=== PATIENT | female | born 1935 | race Caucasian/White ===

== ENCOUNTER 2017-02-14 11:23 | Inpatient (IN) | payer MEDICARE, MEDICAID ==
[2017-02-14] MEDS ORDERED: NORMAL SALINE 1000 ML 1,000 ML IV ONE ×3 (11:33→14:55)
--- NOTE | 2017-02-14 11:49 | ER Document Report ---
ED General - General Stated Complaint: WEAKNESS Time Seen by Provider: 02/14/17 11:28 Mode of Arrival: Medic Information source: Patient Notes: 81-year-old female found by a neighbor on the floor today when she checked on her. The last time the patient was seen was when she drove herself to the [facility] on Tuesday afternoon. Patient has no recollection of what happened to her. She was disoriented to EMS, dehydrated, diaper full of feces and urine. Patient has history of frequent falls and it appeared that she tried to brace herself because things came down around her in the living room. PCP: Dinora Flores, hypothyroid, GERD, DM2, gout, depression, frequent falls, compensated CHF. TRAVEL OUTSIDE OF THE [place] IN LAST 30 DAYS: No - Related Data Allergies/Adverse Reactions: adhesive tape [Adhesive Tape] Allergy (Intermediate, Verified 03/13/15 17:35) SILVA SKIN meperidine HCl [From Demerol] Adverse Reaction (Intermediate, Verified 03/13/15 17:35) VOMITING Home Medications: Current Home Medications Fluoxetine HCl 20 mg PO DAILY 02/14/17 [History] Metoprolol Tartrate 25 mg PO BID 02/14/17 [History] Nitroglycerin [Nitrolingual] 400 mcg PO ASDIR PRN 02/14/17 [History] Vit D3/Folic Acid/B2/B6/B12 [Folgard Tablet] 1,000 units PO DAILY 02/14/17 [ History] Vit D3/Folic Acid/B2/B6/B12 [Folgard Tablet] 2,000 unit PO DAILY 02/14/17 [ History] Past Medical History - General Information source: Patient, Relative - Grand nephew Cannot obtain history due to: Altered mental status - talking in whispers, difficult to understand her, she does not remember what happened - Social History Smoking Status: Smoker,Current Status Unk Frequency of alcohol use: None Drug Abuse: None Lives with: Alone Family History: Reviewed & Not Pertinent - Past Medical History Cardiac Medical History: Reports: Hx Hypercholesterolemia, Hx Hypertension Pulmonary Medical History: Reports: Other - Compensated CHF found on old records Endocrine Medical History: Reports: Hx Diabetes Mellitus Type 2 - diet controlled GI Medical History: Reports: Hx Gastroesophageal Reflux Disease Musculoskeltal Medical History: Reports Hx Arthritis Psychiatric Medical History: Reports: Hx Depression Past Surgical History: Reports: Hx Abdominal Surgery - SAHIL fundoplication, Hx Appendectomy, Hx Cholecystectomy, Hx Tonsillectomy - Immunizations Hx Diphtheria, Pertussis, Tetanus Vaccination: Yes Hx Pneumococcal Vaccination: 04/11/11 Review of Systems - Review of Systems -: Yes ROS unobtainable due to patient's medical condition Physical Exam - Vital signs Vitals: Resp 17 02/14/17 11:35 Interpretation: Normal - General General appearance: Appears well, Alert - HEENT Head: Normocephalic, Atraumatic Eyes: Normal Conjunctiva: Normal Cornea: Other Pupils: PERRL Tympanic membrane: Normal Mouth/Lips: Other - extremely dry Mucous membranes: Dry Pharynx: Erythema - minimal Neck: Normal, Supple - non tender c spine - Respiratory Respiratory status: No respiratory distress Chest status: Nontender Breath sounds: Normal Chest palpation: Normal - Cardiovascular Rhythm: Regular Heart sounds: Normal auscultation Murmur: No - Abdominal Inspection: Normal Distension: Tympanitic Bowel sounds: Normal Tenderness: No: Tender Organomegaly: No organomegaly - Rectal Stool: Heme negative Notes: diaper full of stool and urine - Back Back: Normal, Tender - mild t and l mid spine, Wounds - buttocks erythematous and area of excoriation left buttocks - Extremities General upper extremity: Normal inspection, Nontender, Tender - see below, Normal color, Normal ROM, Normal temperature General lower extremity: Normal inspection, Nontender, Normal color, Normal ROM , Normal temperature, Normal weight bearing. No: Tender, Edema, Brandt's sign Wrist: Tender, Ecchymosis, Limited ROM, Other - swelling, 2+ radial pulse - Neurological Neuro grossly intact: Yes Orientation: Disoriented to time, Disoriented to events Magal[place] Coma Scale Eye Opening: Spontaneous [place] Coma Scale Verbal: Incomprehensible - at first, then speaking louder and not totally coherent [place] Coma Scale Motor: Obeys Commands [place] Coma Scale Total: 12 Speech: Other - whispering Cranial nerves: No: Facial palsy, Sensory deficit, Tongue deviation Motor strength normal: LUE - able to follow commands, use both arms and legs, RUE, LLE, RLE Sensory: Normal - Psychological Associated symptoms: Flat affect, Other - sleepy - Skin Skin Temperature: Warm Skin Moisture: Dry Skin Color: Normal, Ecchymosis - left wrist Skin irregularity: Rash - buttocks with excoriation to left buttocks Course - Re-evaluation Re-evalutation: 02/14/17 14:[address] 130's at 1436, had dr swanson go into the room, grand nephew in room said the pt had been asleep, not as coherent as she was an hour ago. He rec metoprolol 5mg IV, ge ct head, t and l spine since some tenderness at this time. Colles fx, hip negative, CT chronic changes, calcium elevated, AAS negative, EKG ST, UA cath negative for infection. 02/14/17 15:35 dr hahn called back, he will reduce fx for the pt. but wants it splinted at this time. He knows the pt is going to be admitted. In CT at this time. 02/14/17 16:20 Dr. Massey will admit the patient to telemetry. 02/14/17 18:29 Patient is still in room 11 there are no telemetry beds at this time. Orders have been put in for her admission by Dr. Massey. 02/14/17 18:35 - Vital Signs Vital signs: Temp Pulse Resp BP Pulse Ox 98.8 F 23 H 141/67 H 100 02/14/17 17:01 02/14/17 17:01 02/14/17 17:01 02/14/17 17:01 - Laboratory Result Diagrams: 02/14/17 11:50 02/14/17 11:50 Laboratory results interpreted by me: 02/14/17 02/14/17 02/14/17 11:50 11:50 11:50 WBC 14.3 H RDW 15.0 H Seg Neutrophils % 86.4 H Lymphocytes % 7.4 L Absolute Neutrophils 12.4 H BUN 37 H Est GFR ( Amer) 55 L Est GFR (Non-Af Amer) 46 L Glucose 172 H Calcium 11.0 H Total Bilirubin 2.0 H Direct Bilirubin 0.9 H AST 59 H Creatine Kinase 335 H CK-MB (CK-2) 7.77 H Urine Protein Urine Ketones 02/14/17 12:10 WBC RDW Seg Neutrophils % Lymphocytes % Absolute Neutrophils BUN Est GFR ( Amer) Est GFR (Non-Af Amer) Glucose Calcium Total Bilirubin Direct Bilirubin AST Creatine Kinase CK-MB (CK-2) Urine Protein 100 H Urine Ketones 20 H Discharge - Discharge Clinical Impression: Hypercalcemia, Dehydration, colles fracture left wrist, compensated CHF hx, hx frequent falls, buttocks rash and excoriation skin, amnesia to weekend events Syncope Qualifiers: Syncope type: unspecified Qualified Code(s): R55 - Syncope and collapse Condition: Stable Disposition: ADMITTED INPATIENT Admitting Provider: Hospitalist Unit Admitted: Telemetry
[2017-02-14] MEDS ORDERED: NORMAL SALINE 1000 ML 500 ML IV ONE ×2 (11:53→14:07)
[2017-02-14 12:09] LABS: ABSOLUTE BASOPHILS # (AUTO) 0.1 10^3/uL (0.0-0.2); ABSOLUTE LYMPHOCYTES (AUTO) 1.1 10^3/uL (0.5-4.7); ABSOLUTE MONOCYTES (AUTO) 0.8 10^3/uL (0.1-1.4); ABSOLUTE NEUT (AUTO) 12.4 10^3/uL (1.7-8.2); BASOPHILS % (AUTO) 0.4 % (0-2); HEMATOCRIT 44.3 % (36.0-47.0); HEMOGLOBIN 14.8 g/dL (12.0-15.5); HGB HCT DIFFERENCE 0.1; LYMPHOCYTES % (AUTO) 7.4 % (13-45); MEAN CORPUSCULAR HEMOGLOBIN 32.1 pg (27.0-33.4); MEAN CORPUSCULAR HGB CONC 33.4 g/dL (32.0-36.0); MEAN CORPUSCULAR VOLUME 96 fl (80-97); MONOCYTES % (AUTO) 5.8 % (3-13); RED BLOOD COUNT 4.61 10^6/uL (3.72-5.28); SEGMENTED NEUTROPHILS % (AUTO) 86.4 % (42-78); VENOUS BLOOD BASE EXCESS 2.6 mmol/L; VENOUS BLOOD HCO3 28.7 mmol/L (20-32); VENOUS BLOOD PCO2 49.6 mmHg (35-63); VENOUS BLOOD PH 7.38 (7.30-7.42); WHITE BLOOD COUNT 14.3 10^3/uL (4.0-10.5)
[2017-02-14 12:31] LABS: ALANINE AMINOTRANSFERASE 52 U/L (9-52); ALBUMIN 3.9 g/dL (3.5-5.0); ALKALINE PHOSPHATASE 101 U/L (38-126); ANION GAP 14 (5-19); ASPARTATE AMINO TRANSFERASE 59 U/L (14-36); BILIRUBIN,DIRECT 0.9 mg/dL (0.0-0.4); BLOOD UREA NITROGEN 37 mg/dL (7-20); CARBON DIOXIDE 28 mmol/L (22-30); CHLORIDE 101 mmol/L (98-107); CREATINE KINASE 335 U/L (30-135); CREATININE RESULT 1.14 mg/dL (0.52-1.25); GLUCOSE 172 mg/dL (75-110); MAGNESIUM 1.7 mg/dL (1.6-2.3); POTASSIUM 4.3 mmol/L (3.6-5.0); SODIUM 142.9 mmol/L (137-145)
[2017-02-14 12:34] LABS: APPEARANCE,URINE CLEAR; BILIRUBIN,URINE NEGATIVE (NEGATIVE); GLUCOSE, URINE NEGATIVE (NEGATIVE); KETONES,URINE 20 mg/dL (NEGATIVE); LEUKOCYTE ESTERASE,URINE NEGATIVE (NEGATIVE); NITRITE,URINE NEGATIVE (NEGATIVE); PROTEIN,URINE 100 mg/dL (NEGATIVE); URINE SPECIFIC GRAVITY 1.024; UROBILINOGEN,URINE NEGATIVE mg/dL (<2.0)
[2017-02-14 12:43] LABS: CREATINE KINASE MB 7.77 ng/mL (<4.55); TROPONIN I 0.018 ng/mL
--- NOTE | 2017-02-14 13:21 | RADIOLOGY REPORT (SQ) ---
EXAM DESCRIPTION: CT HEAD WITHOUT COMPLETED DATE/TIME: 02/14/2017 12:57 pm REASON FOR STUDY: found on fall altered mental status COMPARISON: 04/23/2015 TECHNIQUE: Axial images acquired through the brain without intravenous contrast. Images reviewed wi th bone, brain and subdural windows. Images stored on PACS. All CT scanners at this facility use dose modulation, iterative reconstruction, and/or weight based d osing when appropriate to reduce radiation dose to as low as reasonably achievable (ALARA). [facility]: Dose Right [facility]: CareDose [facility]: Dose Right [facility]: Teradose 4D [facility]: [employer] RADIATION DOSE: Up-to-date CT equipment and radiation dose reduction techniques were employed. CTDIv ol: 64.6 mGy. DLP: 1163 mGy-cm.mGy. LIMITATIONS: None. FINDINGS: VENTRICLES: Prominent. CEREBRUM: No masses. No hemorrhage. No midline shift. Areas of low density in the white matter mos t likely due to chronic micro-vascular ischemic change. No evidence for acute infarction. CEREBELLUM: No masses. No hemorrhage. No alteration of density. No evidence for acute infarction. EXTRAAXIAL SPACES: Age-related involutional change. No fluid collections. No masses. ORBITS AND GLOBE: No intra- or extraconal masses. Normal contour of globe without masses. CALVARIUM: No fracture. PARANASAL SINUSES: No fluid or mucosal thickening. SOFT TISSUES: No mass or hematoma. OTHER: No other significant finding. IMPRESSION: CHRONIC CHANGES OF ATROPHY AND MICROVASCULAR ISCHEMIA. NO ACUTE PROCESS. EVIDENCE OF ACUTE STROKE: NO. TECHNICAL DOCUMENTATION: JOB ID: [id number] Quality ID # [id number]: Final reports with documentation of one or more dose reduction techniques (e.g., Au tomated exposure control, adjustment of the mA and/or kV according to patient size, use of iterative reconstruction technique) 2010 [employer]- All Rights Reserved
--- NOTE | 2017-02-14 13:59 | RADIOLOGY REPORT (SQ) ---
EXAM DESCRIPTION: HIP RIGHT AP/LATERAL COMPLETED DATE/TIME: 02/14/2017 1:47 pm REASON FOR STUDY: bruising found on floor COMPARISON: 04/14/2015 NUMBER OF VIEWS: Two views. TECHNIQUE: AP pelvis and additional frog-leg view of the right hip. LIMITATIONS: Overlying bowel gas. FINDINGS: MINERALIZATION: Osteopenia. RIGHT HIP: No fracture or dislocation. No worrisome bone lesions. LEFT HIP: No fracture or dislocation. No worrisome bone lesions. PUBIS AND ISCHIUM: No fracture. PELVIS: No fracture. SACRUM: Evaluation limited. LOWER LUMBAR SPINE: No fracture or dislocation. No worrisome bone lesions. No significant disc disea se. SOFT TISSUES: Cho catheter in urinary bladder. OTHER: No other significant finding. IMPRESSION: NO RADIOGRAPHIC EVIDENCE OF ACUTE INJURY. TECHNICAL DOCUMENTATION: JOB ID: [id number] [employer]- All Rights Reserved
--- NOTE | 2017-02-14 14:01 | RADIOLOGY REPORT (SQ) ---
EXAM DESCRIPTION: WRIST LEFT 3 VIEWS COMPLETED DATE/TIME: 02/14/2017 1:47 pm REASON FOR STUDY: swollen and bruised COMPARISON: None. NUMBER OF VIEWS: Three views. TECHNIQUE: AP, lateral, and oblique radiographic images acquired of the left wrist. LIMITATIONS: None. FINDINGS: MINERALIZATION: Osteopenia. BONES: Comminuted fracture of the distal radius extends into the radiocarpal joint. Mild dorsal angu lation. SOFT TISSUES: No foreign body. OTHER: No other significant finding. IMPRESSION: Fracture of the distal radius. TECHNICAL DOCUMENTATION: JOB ID: [id number] [employer]- All Rights Reserved
--- NOTE | 2017-02-14 14:04 | RADIOLOGY REPORT (SQ) ---
EXAM DESCRIPTION: ACUTE ABDOMEN SERIES COMPLETED DATE/TIME: 02/14/2017 1:48 pm REASON FOR STUDY: found on fall altered mental status COMPARISON: None. NUMBER OF VIEWS: Three views. TECHNIQUE: Frontal chest, supine abdomen and upright/decubitus abdomen radiographic images acquired. LIMITATIONS: None. FINDINGS: CHEST: Lungs clear of infiltrates. FREE AIR: None. No abnormal gas collections. BOWEL GAS PATTERN: Nonobstructive pattern. No dilated loops or air fluid levels. CALCIFICATIONS: No suspicious calcifications. HARDWARE: Hernia mesh right upper quadrant. SOFT TISSUES: Cho catheter in urinary bladder. BONES: No acute fracture. No worrisome bone lesions. OTHER: No other significant finding. IMPRESSION: NO RADIOGRAPHIC EVIDENCE FOR ACUTE ABDOMINAL DISEASE. TECHNICAL DOCUMENTATION: JOB ID: [id number] [employer]- All Rights Reserved
--- NOTE | 2017-02-14 14:08 | EKG REPORT ---
SEVERITY:- ABNORMAL ECG - SINUS RHYTHM VENTRICULAR PREMATURE COMPLEX RIGHT BUNDLE BRANCH BLOCK NONSPECIFIC ST-T CHANGES- INFERIOR LEADS : Confirmed by: Cleveland Gill MD 14-Feb-2017 14:07:42
[2017-02-14] MEDS ORDERED: METOPROLOL TARTRATE PF/INJ 5 MG/5 ML SDV IV ONE (14:53)
--- NOTE | 2017-02-14 16:02 | RADIOLOGY REPORT (SQ) ---
EXAM DESCRIPTION: CT CERVICAL SPINE WITHOUT COMPLETED DATE/TIME: 02/14/2017 3:38 pm REASON FOR STUDY: fall COMPARISON: 03/13/2015 TECHNIQUE: Axial images acquired through the cervical spine without intravenous contrast. Images re viewed with lung, soft tissue and bone windows. Reconstructed coronal and sagittal MPR images review ed. Images stored on PACS. All CT scanners at this facility use dose modulation, iterative reconstruction, and/or weight based d osing when appropriate to reduce radiation dose to as low as reasonably achievable (ALARA). [facility]: Dose Right [facility]: CareDose [facility]: Dose Right [facility]: Teradose 4D [facility]: Smart [employer] RADIATION DOSE: Up-to-date CT equipment and radiation dose reduction techniques were employed. CTDIv ol: 20.7 mGy. DLP: 420 mGy-cm. mGy. LIMITATIONS: None. FINDINGS: ALIGNMENT: Grade 1 anterolisthesis of C3 relative to C4. MINERALIZATION: Normal. VERTEBRAL BODIES: No fractures or dislocation. DISCS: Multilevel disc space narrowing with osteophytes. FACETS, LATERAL MASSES, POSTERIOR ELEMENTS: Facet arthropathy. No fractures. No dislocation. No ac [place] findings. HARDWARE: None in the spine. VISUALIZED RIBS: No fractures. LUNG APICES AND SOFT TISSUES: No significant or acute findings. OTHER: No other significant finding. IMPRESSION: CHRONIC DEGENERATIVE CHANGES. NO ACUTE FINDINGS. TECHNICAL DOCUMENTATION: JOB ID: [id number] Quality ID # [id number]: Final reports with documentation of one or more dose reduction techniques (e.g., Au tomated exposure control, adjustment of the mA and/or kV according to patient size, use of iterative reconstruction technique) 2010 [employer]- All Rights Reserved
--- NOTE | 2017-02-14 16:04 | RADIOLOGY REPORT (SQ) ---
EXAM DESCRIPTION: CT THORACIC SPINE WITHOUT COMPLETED DATE/TIME: 02/14/2017 3:40 pm REASON FOR STUDY: fall COMPARISON: None. TECHNIQUE: Axial images acquired through the thoracic spine without intravenous contrast. Images re viewed with lung, soft tissue and bone windows. Reconstructed coronal and sagittal MPR images review ed. Images stored on PACS. All CT scanners at this facility use dose modulation, iterative reconstruction, and/or weight based d osing when appropriate to reduce radiation dose to as low as reasonably achievable (ALARA). [facility]: Dose Right [facility]: CareDose [facility]: Dose Right [facility]: Teradose 4D [facility]: Smart [employer] RADIATION DOSE: Up-to-date CT equipment and radiation dose reduction techniques were employed. CTDIv ol: 117.6 mGy. DLP: 4135 mGy-cm. mGy. LIMITATIONS: None. FINDINGS: Bones are osteopenic. There is an exaggerated kyphosis. No obvious acute compression fra cture. Degenerative changes at multiple levels. No paraspinal hematoma. IMPRESSION: No acute findings. TECHNICAL DOCUMENTATION: JOB ID: [id number] Quality ID # [id number]: Final reports with documentation of one or more dose reduction techniques (e.g., Au tomated exposure control, adjustment of the mA and/or kV according to patient size, use of iterative reconstruction technique) 2010 [employer]- All Rights Reserved
--- NOTE | 2017-02-14 16:07 | RADIOLOGY REPORT (SQ) ---
EXAM DESCRIPTION: CT LUMBAR SPINE WITHOUT COMPLETED DATE/TIME: 02/14/2017 3:44 pm REASON FOR STUDY: fall COMPARISON: None. TECHNIQUE: Axial images acquired through the lumbar spine without intravenous contrast. Images revi ewed with lung, soft tissue and bone windows. Reconstructed coronal and sagittal MPR images reviewed . All images stored on PACS. All CT scanners at this facility use dose modulation, iterative reconstruction, and/or weight based d osing when appropriate to reduce radiation dose to as low as reasonably achievable (ALARA). [facility]: Dose Right [facility]: CareDose [facility]: Dose Right [facility]: Teradose 4D [facility]: [employer] RADIATION DOSE: mGy. LIMITATIONS: None. FINDINGS: Bones are osteopenic. Grade 1 anterolisthesis of L4 relative to L5 and L5 relative to S1. No fracture is identified. Sacral fractures can be occult in osteopenic patients. Moderate spinal stenosis at L1-2 associated with bony spur formation. Facet arthropathy. No paraspinal hematoma. IMPRESSION: No fracture identified. TECHNICAL DOCUMENTATION: JOB ID: [id number] Quality ID # [id number]: Final reports with documentation of one or more dose reduction techniques (e.g., Au tomated exposure control, adjustment of the mA and/or kV according to patient size, use of iterative reconstruction technique) 2010 [employer]- All Rights Reserved
[2017-02-14] MEDS: NORMAL SALINE 1000 ML 1,000 ML IV PRN (17:23)
[2017-02-14 17:41] LABS: URINE BARBITURATES SCREEN NEGATIVE; URINE METHADONE SCREEN NEGATIVE; URINE OPIATES LOW NEGATIVE; URINE PHENCYCLIDINE SCREEN NEGATIVE
--- NOTE | 2017-02-14 18:49 | EKG REPORT ---
SEVERITY:- ABNORMAL ECG - SINUS TACHYCARDIA FIRST DEGREE AV BLOCK RIGHT BUNDLE BRANCH BLOCK : Confirmed by: Cleveland Gill MD 14-Feb-2017 18:48:05
[2017-02-15] MEDS: HYDROCODONE/ACETAMINOPHEN 7.5-325 MG TABLET PO PRN ×2 (01:53→18:48)
[2017-02-15] MEDS: METOPROLOL TARTRATE 25 MG TABLET PO SCH ×3 (01:53→21:51)
[2017-02-15 05:27] LABS: HGB HCT DIFFERENCE -0.2; MEAN CORPUSCULAR HEMOGLOBIN 32.1 pg (27.0-33.4); MEAN CORPUSCULAR HGB CONC 33.3 g/dL (32.0-36.0); MEAN CORPUSCULAR VOLUME 97 fl (80-97); RED BLOOD COUNT 3.94 10^6/uL (3.72-5.28); RED CELL DISTRIBUTION WIDTH 14.6 % (11.5-14.0)
[2017-02-15 05:40] LABS: HEMOGLOBIN 12.6 g/dL (12.0-15.5)
[2017-02-15] MEDS: NORMAL SALINE 1000 ML 1,000 ML IV PRN (05:42)
[2017-02-15] MEDS ORDERED: LANSOPRAZOLE 30 MG TAB.RAP.DR PO SCH (06:00)
[2017-02-15 06:04] LABS: FREE T3 2.16 pg/mL (2.77-5.27)
[2017-02-15 06:18] LABS: THYROID STIMULATING HORMONE 0.52 uIU/mL (0.47-4.68)
--- NOTE | 2017-02-15 06:49 | PDOC CONSULTATION ---
Consultation Consult Date: 02/15/17 Consult reason:: Left wrist fracture History of Present Illness Admission Date/PCP: 02/14/17 16:28 History of Present Illness: PRIYA CANTRELL is a 81 year old female who fell over the weekend and sustained a left wrist fracture. She was brought to the emergency several days status post a fall which she spent on the floor without food or water. X-rays in the emergency room demonstrated comminuted left distal radius fracture which is displaced. The patient was splinted because the emergency room staff felt that she was not stable for conscious sedation at that point to allow reduction of the wrist fracture. Orthopedics is now consulted for management of the fracture. Past Medical History Cardiac Medical History: Reports: Hyperlipidema, Hypertension Pulmonary Medical History: Reports: Other - Compensated CHF found on old records Endocrine Medical History: Reports: Diabetes Mellitus Type 2 - diet controlled GI Medical History: Reports: Gastroesophageal Reflux Disease Musculoskeltal Medical History: Reports: Arthritis Psychiatric Medical History: Reports: Depression Past Surgical History Past Surgical History: Reports: Appendectomy, Cholecystectomy, Tonsillectomy Social History Information Source: Patient, Emergency Med Personnel, [facility] Records Lives with: Alone Smoking Status: Never Smoker Frequency of Alcohol Use: None Hx Recreational Drug Use: No Hx Prescription Drug Abuse: No Family History Family History: Reviewed & Not Pertinent Parental Family History Reviewed: No Children Family History Reviewed: No Sibling(s) Family History Reviewed.: No Medication/Allergy Home Medications: Acetaminophen [Tylenol Extra Strength 500 mg Tablet] 650 mg PO PRN PRN 09/02/11 Allopurinol [Zyloprim 100 mg Tablet] 300 mg PO DAILY 09/02/11 Multivitamin [Multivitamins] 1 each PO DAILY 09/02/11 Omeprazole [Prilosec 40 mg Capsule] 40 mg PO DAILY 09/02/11 Ranitidine HCl 300 mg PO BID 04/24/15 Venlafaxine HCl [Effexor Xr] 75 mg PO DAILY 04/24/15 Ferrous Sulfate [Feosol 325 mg Tablet] 325 mg PO DAILY #30 tablet 04/29/15 Levothyroxine Sodium 200 mcg PO DAILY #30 tablet 04/29/15 Fluoxetine HCl 20 mg PO DAILY 02/14/17 Metoprolol Tartrate 25 mg PO BID 02/14/17 Nitroglycerin [Nitrolingual] 400 mcg PO ASDIR PRN 02/14/17 Vit D3/Folic Acid/B2/B6/B12 [Folgard Tablet] 1,000 units PO DAILY 02/14/17 Vit D3/Folic Acid/B2/B6/B12 [Folgard Tablet] 2,000 unit PO DAILY 02/14/17 Allergies/Adverse Reactions: adhesive tape [Adhesive Tape] Allergy (Intermediate, Verified 03/13/15 17:35) SILVA SKIN meperidine HCl [From Demerol] Adverse Reaction (Intermediate, Verified 03/13/15 17:35) VOMITING Review of Systems All systems: as per [facility] Physical Exam Vital Signs: Temp Pulse Resp BP Pulse Ox 37.2 C 86 20 130/75 H 90 L 02/15/17 04:24 02/15/17 04:24 02/15/17 04:24 02/15/17 04:24 02/15/17 04:24 Intake & Output 02/13/17 02/14/17 02/15/17 06:59 06:59 06:59 Intake Total 600 Output Total 700 Balance -100 Weight 74.1 kg General appearance: PRESENT: mild distress Head exam: PRESENT: normocephalic Respiratory exam: PRESENT: unlabored Cardiovascular exam: PRESENT: RRR Vascular exam: PRESENT: normal capillary refill GI/Abdominal exam: PRESENT: soft Rectal exam: PRESENT: deferred Extremities exam: PRESENT: other - Left upper extremity a short arm splint. Neurovascular examination to the fingers is intact. Neurological exam: PRESENT: altered Skin exam: PRESENT: dry, intact, warm. ABSENT: cyanosis, rash Results Laboratory Results: 02/15/17 04:09 02/15/17 04:09 WBC 11.0 H RBC 3.94 Hgb 12.6 D Hct 38.0 MCV 97 MCH 32.1 MCHC 33.3 RDW 14.6 H Plt Count 161 Impressions: Hip/Pelvis X-Ray 02/14/17 11:40 IMPRESSION: NO RADIOGRAPHIC EVIDENCE OF ACUTE INJURY. Acute Abdomen Series 02/14/17 11:42 IMPRESSION: NO RADIOGRAPHIC EVIDENCE FOR ACUTE ABDOMINAL DISEASE. Head CT 02/14/17 11:42 IMPRESSION: CHRONIC CHANGES OF ATROPHY AND MICROVASCULAR ISCHEMIA. NO ACUTE PROCESS. EVIDENCE OF ACUTE STROKE: NO. Wrist X-Ray 02/14/17 11:52 IMPRESSION: Fracture of the distal radius. Cervical Spine CT 02/14/17 14:51 IMPRESSION: CHRONIC DEGENERATIVE CHANGES. NO ACUTE FINDINGS. Lumbar Spine CT 02/14/17 14:51 IMPRESSION: No fracture identified. Thoracic Spine CT 02/14/17 14:51 IMPRESSION: No acute findings. Status: Imported from PACS Assessment & Plan - Diagnosis (1) Left wrist fracture Is this a current diagnosis for this admission?: Yes Plan: A 81-year-old white female with multiple ongoing issues that are at least in part related to a fall and inability to obtain help. Plan will be for closed reduction of the left wrist fracture and splint application medical condition permits. - Time Time Spent: 50 to 70 Minutes Critical Time spent with patient: 15-24 minutes Anticipated discharge: Other Within: Other
[2017-02-15] MEDS ORDERED: (PENDING PHARMACY ID) (Omeprazole [Prilosec 40 Mg Capsule] 40 MG) PO SCH (10:00)
[2017-02-15] MEDS ORDERED: LEVOTHYROXINE SODIUM 0.1 MG TABLET PO SCH (10:00)
[2017-02-15] MEDS ORDERED: VENLAFAXINE HCL 75 MG PO SCH (10:00)
[2017-02-15] MEDS ORDERED: (PENDING PHARMACY ID) (Levothyroxine Sodium [Levothyroxine Sodium] 200 MCG) PO SCH (10:00)
[2017-02-15] MEDS ORDERED: VENLAFAXINE HCL 75 MG CAP.SR.24H PO SCH (10:00)
--- NOTE | 2017-02-15 10:05 | Physician Advisory Note ---
Physician Advisor ProgressNote .: Pursuant to the plan for [facility], I have reviewed the medical record for this patient. Physician Advisor Statement: Please document: 1. H&P 2. "Medical necessity" - clinical reasons pt is not safe for d/c home today ( unless clinically you consider her safe for d/c today except for social reasons) Ex: "mental status not yet back to baseline", 'not yet hemodynamically stable"/"recurrent tachycardia/tachypnea/...", "I AM CONCERNED about " (specify potential M&M risks) Status: Appropriate to come in as Outpt Obs on 02/14. Medicare pt, has spent 1MN in hospital so far. If a 2nd MN has documented reasons for medical necessity/provider concerns [such as examples above if they apply], pt may become appropriate for change to Inpatient status today. Thanks! CK
[2017-02-15] MEDS: FLUOXETINE HCL 20 MG CAPSULE PO SCH (12:05)
--- NOTE | 2017-02-15 14:40 | RADIOLOGY REPORT (SQ) ---
EXAM DESCRIPTION: CAROTID DOPPLER COMPLETED DATE/TIME: 02/15/2017 2:20 pm REASON FOR STUDY: syncope COMPARISON: None. TECHNIQUE: Grayscale ultrasound, Doppler velocity and spectra, and color Doppler images acquired of the extra-cranial carotid and vertebral arteries. Images stored on PACS. LIMITATIONS: None. FINDINGS: RIGHT CAROTID CCA Velocities: Within normal limits. ICA Velocities Peak systolic 57cm/s. End diastolic 14cm/s. Proximal ICA/CCA peak systolic ratio 1.0. Spectra normal. No significant plaque. LEFT CAROTID CCA Velocities: Within normal limits. ICA Velocities Peak systolic 63cm/s. End diastolic 19cm/s. Proximal ICA/CCA peak systolic ratio 1.0. Spectra normal. No significant plaque. VERTEBRAL ARTERIES: Antegrade flow. Normal waveforms. SUBCLAVIAN ARTERIES: No finding. OTHER: No other significant finding. IMPRESSION: NO HEMODYNAMICALLY SIGNIFICANT STENOSIS. COMMENT: Quality ID #[id number]: Velocity criteria are extrapolated from the diameter data as defined by t [place] Society of Radiologists in Ultrasound Consensus Conference. Radiology 2003: 229; 340-346. TECHNICAL DOCUMENTATION: JOB ID: [id number] [employer]- All Rights Reserved
[2017-02-15] MEDS ORDERED: INSULIN LISPRO 100 UNIT/ML 3 ML VIAL SUBCUT PRN (18:29)
[2017-02-15] MEDS ORDERED: DEXTROSE 50%-WATER 25 GM/50 ML DISP.SYRIN IV PRN ×2 (18:29)
[2017-02-15] MEDS ORDERED: GLUCAGON,HUMAN RECOMB 1 MG INJ IM PRN (18:29)
[2017-02-15] MEDS ORDERED: DEXTROSE 40% GEL 15 GM TUBE PO PRN ×2 (18:29)
--- NOTE | 2017-02-15 18:48 | RADIOLOGY REPORT (SQ) ---
EXAM DESCRIPTION: MRI HEAD COMBO COMPLETED DATE/TIME: 02/15/2017 6:26 pm REASON FOR STUDY: Change in mentation COMPARISON: Brain CT scan dated 02/14/2017 TECHNIQUE: Multiplanar imaging includes noncontrasted T1, T2, FLAIR, Diffusion with ADC map and post gadolinium contrast T1 sequences. Images stored on PACS. CONTRAST TYPE AND DOSE: 10 mL MultiHance RENAL FUNCTION: GFR 46 LIMITATIONS: None. FINDINGS: ANATOMY: No anomalies. Normal vascular flow voids. Pituitary fossa normal. CSF SPACES: Atrophy-induced prominence of CSF spaces and ventricles. CEREBRUM: High-signal intensity lesions scattered throughout the white matter on FLAIR imaging with d istribution suggesting chronic micro-vascular ischemic change. No evidence of hemorrhage, mass, extra axial fluid collection or acute ischemic change. No enhancing lesions. POSTERIOR FOSSA: No signal alteration. No hemorrhage. No edema, masses, or mass effect. Internal ro tory canals, cerebello-pontine angles, mastoids normal. No enhancing lesions. ORBITS: No masses. Globes normal. PARANASAL SINUSES: No fluid levels. Mucosa normal. DIFFUSION: Normal. No evidence of recent infarct. OTHER: No other significant finding. IMPRESSION: ATROPHY AND CHRONIC MICRO-VASCULAR ISCHEMIC CHANGES. OTHERWISE UNREMARKABLE MRI OF THE B RAIN WITHOUT AND WITH INTRAVENOUS GADOLINIUM CONTRAST. EVIDENCE OF ACUTE STROKE: NO. TECHNICAL DOCUMENTATION: JOB ID: [id number]- All Rights Reserved
--- NOTE | 2017-02-15 19:15 | PDOC H&P ---
History of Present Illness Admission Date/PCP: 02/14/17 16:28 History of Present Illness: PRIYA CANTRELL is a 81 year old female who was found down in her house by EMS. Patient cannot remember what happened. Patient does have some family at the bedside. She was last seen on Tuesday in her normal state. Patient was at the [facility] on Tuesday. Patient states she was not feeling well and was followed back home to her residence. No one her from the patient since then. The senior status became concerned as patient was not answering her phone. When EMS into the home patient was down and covered in her own stools and urine. It is uncertain as to how long patient has been down. Patient does not remember exactly what happened. And does not even remember getting into the home. Patient denies any seizure history. Patient denies any previous history of syncope. In the ED patient was found to have a fracture of the left arm. Patient's electrolytes and CBC were essentially normal. Patient did have ketones in her urine. CT scan done of the head was negative for any findings. Hospitalist service was called to observe the patient and evaluate patient for any further findings. Dr. Rubin orthopedics was consulted for patient left arm fracture. Past Medical History Cardiac Medical History: Reports: Hyperlipidema, Hypertension Pulmonary Medical History: Reports: Other - Compensated CHF found on old records Endocrine Medical History: Reports: Diabetes Mellitus Type 2 - diet controlled GI Medical History: Reports: Gastroesophageal Reflux Disease Musculoskeltal Medical History: Reports: Arthritis Psychiatric Medical History: Reports: Depression Past Surgical History Past Surgical History: Reports: Appendectomy, Cholecystectomy, Tonsillectomy Social History Information Source: Relative Lives with: Alone Smoking Status: Never Smoker Frequency of Alcohol Use: None Hx Recreational Drug Use: No Hx Prescription Drug Abuse: No - Advance Directive Resuscitation Status: Full Code Family History Family History: None Parental Family History Reviewed: Yes Children Family History Reviewed: Yes Sibling(s) Family History Reviewed.: Yes Medication/Allergy Home Medications: Acetaminophen [Tylenol Extra Strength 500 mg Tablet] 650 mg PO PRN PRN 09/02/11 Allergies/Adverse Reactions: adhesive tape [Adhesive Tape] Allergy (Intermediate, Verified 03/13/15 17:35) SILVA SKIN meperidine HCl [From Demerol] Allergy (Intermediate, Verified 02/15/17 17:27) VOMITING furosemide Allergy (Verified 02/15/17 17:28) meperidine [From Demerol] Allergy (Verified 02/15/17 17:27) mesalamine [From Apriso] Allergy (Verified 02/15/17 17:27) ramipril Allergy (Verified 02/15/17 17:28) topiramate [From Topamax] Allergy (Verified 02/15/17 17:28) valsartan [From Diovan] Allergy (Verified 02/15/17 17:28) Review of Systems ROS unobtainable: Due to mental status Physical Exam Vital Signs: Temp Pulse Resp BP Pulse Ox 97.9 F 64 18 148/65 H 93 02/15/17 15:53 02/15/17 16:00 02/15/17 16:00 02/15/17 16:00 02/15/17 16:00 Intake & Output 02/14/17 02/15/17 02/16/17 06:59 06:59 06:59 Intake Total 600 3905 Output Total 700 200 Balance -100 3705 Weight 74.1 kg 74.1 kg General appearance: PRESENT: no acute distress, well-nourished Head exam: PRESENT: atraumatic, normocephalic Eye exam: PRESENT: EOMI. ABSENT: scleral icterus Mouth exam: PRESENT: dry mucosa Teeth exam: PRESENT: poor dentation Neck exam: ABSENT: carotid bruit, JVD, lymphadenopathy, thyromegaly Respiratory exam: PRESENT: clear to auscultation odalis. ABSENT: rales, rhonchi, wheezes Cardiovascular exam: PRESENT: RRR. ABSENT: diastolic murmur, rubs, systolic murmur Vascular exam: PRESENT: pallor GI/Abdominal exam: PRESENT: normal bowel sounds, soft. ABSENT: distended, guarding, mass, organolmegaly, rebound, tenderness Rectal exam: PRESENT: deferred Gentrourinary exam: PRESENT: indwelling catheter Extremities exam: PRESENT: full ROM. ABSENT: calf tenderness, clubbing, pedal edema Musculoskeletal exam: PRESENT: other - splint on left hand Neurological exam: PRESENT: alert, awake, oriented to person, oriented to place , oriented to time, CN II-XII grossly intact, other - patient is still slow with responding and is still confused.. ABSENT: motor sensory deficit Psychiatric exam: PRESENT: appropriate affect, normal mood. ABSENT: homicidal ideation, suicidal ideation Skin exam: PRESENT: dry, intact, warm. ABSENT: cyanosis, rash Results Laboratory Results: 02/15/17 04:09 02/15/17 02/15/17 04:09 04:09 WBC 11.0 H RBC 3.94 Hgb 12.6 D Hct 38.0 MCV 97 MCH 32.1 MCHC 33.3 RDW 14.6 H Plt Count 161 TSH 0.52 Free T4 1.57 Free T3 pg/mL 2.16 L Impressions: Hip/Pelvis X-Ray 02/14/17 11:40 IMPRESSION: NO RADIOGRAPHIC EVIDENCE OF ACUTE INJURY. Acute Abdomen Series 02/14/17 11:42 IMPRESSION: NO RADIOGRAPHIC EVIDENCE FOR ACUTE ABDOMINAL DISEASE. Head CT 02/14/17 11:42 IMPRESSION: CHRONIC CHANGES OF ATROPHY AND MICROVASCULAR ISCHEMIA. NO ACUTE PROCESS. EVIDENCE OF ACUTE STROKE: NO. Wrist X-Ray 02/14/17 11:52 IMPRESSION: Fracture of the distal radius. Cervical Spine CT 02/14/17 14:51 IMPRESSION: CHRONIC DEGENERATIVE CHANGES. NO ACUTE FINDINGS. Lumbar Spine CT 02/14/17 14:51 IMPRESSION: No fracture identified. Thoracic Spine CT 02/14/17 14:51 IMPRESSION: No acute findings. Carotid Doppler Study 02/15/17 00:00 IMPRESSION: NO HEMODYNAMICALLY SIGNIFICANT STENOSIS. Assessment & Plan - Diagnosis (1) Syncope Qualifiers: Syncope type: unspecified Qualified Code(s): R55 - Syncope and collapse Is this a current diagnosis for this admission?: Yes Plan: Uncertain as to what really happened. Will continue hydrating patient. Will check orthostatics. CT head shows small vessel changes. Will check MRI of the brain. Will check carotids and echo. Unusual for patient not to remember anything leading up to or following the incident. There is a possibility that this may have been a seizure and patient is currently postictal. Will place patient on seizure precautions and make consider starting patient on low-dose Keppra. (2) Global amnesia Is this a current diagnosis for this admission?: Yes Plan: Patient still does not remember much of anything. There is no treatment for this condition should resolve on its own. However patient is having subclinical seizures patient will need to be started on medications. There is no take at this time due EEGs but if I strongly suspect the patient is having seizures will start patient on low-dose Keppra. (3) Dehydration Is this a current diagnosis for this admission?: Yes Plan: Will continue with aggressive IV hydration. Will encourage p.o. intake. (4) Left wrist fracture Is this a current diagnosis for this admission?: Yes Plan: Patient left arm is currently in a splint. Dr. Royal orthopedics was consulted. Appreciate his recommendations. (5) CKD (chronic kidney disease), stage III Is this a current diagnosis for this admission?: Yes Plan: Creatinine appears stable at this time. Will continue to hydrate and monitor. - Time Time Spent: 50 to 70 Minutes Anticipated discharge: SNF Within: when bed available - Inpatient Certification Medical Necessity: Other - Apparently patient was living alone. Patient memory was more intact. Patient is currently still very confused and is not quite to her baseline per her family.
--- NOTE | 2017-02-15 19:42 | PDOC PROGRESS REPORT ---
Subjective Progress Note for:: 02/15/17 Subjective:: Patient is a 81-year-old female who was found down at her home. Patient is uncertain as to what happened. Patient appears to be is doing somewhat better however still confused which is different from her baseline. Patient states she has a lot of pain in her left wrist which is broken. Patient family at bedside and stated that she has eaten a little bit. Physical Exam Vital Signs: Temp Pulse Resp BP Pulse Ox 97.9 F 64 18 148/65 H 93 02/15/17 15:53 02/15/17 16:00 02/15/17 16:00 02/15/17 16:00 02/15/17 16:00 Intake & Output 02/14/17 02/15/17 02/16/17 06:59 06:59 06:59 Intake Total 600 4142 Output Total 700 400 Balance -100 3742 Weight 74.1 kg 74.1 kg General appearance: PRESENT: no acute distress, well-developed, well-nourished, other - Elderly Head exam: PRESENT: atraumatic, normocephalic Eye exam: PRESENT: EOMI. ABSENT: scleral icterus Mouth exam: PRESENT: moist Teeth exam: PRESENT: poor dentation Neck exam: ABSENT: carotid bruit, JVD, lymphadenopathy, thyromegaly Respiratory exam: PRESENT: clear to auscultation odalis. ABSENT: rales, rhonchi, wheezes Cardiovascular exam: PRESENT: RRR. ABSENT: diastolic murmur, rubs, systolic murmur Vascular exam: PRESENT: normal capillary refill GI/Abdominal exam: PRESENT: normal bowel sounds, soft. ABSENT: distended, guarding, mass, organolmegaly, rebound, tenderness Rectal exam: PRESENT: deferred Extremities exam: PRESENT: full ROM, other - Left arm splint. ABSENT: calf tenderness, clubbing, pedal edema Neurological exam: PRESENT: alert, awake, oriented to person, oriented to place , CN II-XII grossly intact, other - She still having difficulty answering questions. She has difficulty answering answering with being asked.. ABSENT: motor sensory deficit Psychiatric exam: PRESENT: appropriate affect, normal mood. ABSENT: homicidal ideation, suicidal ideation Skin exam: PRESENT: dry, intact, warm. ABSENT: cyanosis, rash Results Laboratory Results: 02/15/17 04:09 02/15/17 02/15/17 04:09 04:09 WBC 11.0 H RBC 3.94 Hgb 12.6 D Hct 38.0 MCV 97 MCH 32.1 MCHC 33.3 RDW 14.6 H Plt Count 161 TSH 0.52 Free T4 1.57 Free T3 pg/mL 2.16 L Impressions: Hip/Pelvis X-Ray 02/14/17 11:40 IMPRESSION: NO RADIOGRAPHIC EVIDENCE OF ACUTE INJURY. Acute Abdomen Series 02/14/17 11:42 IMPRESSION: NO RADIOGRAPHIC EVIDENCE FOR ACUTE ABDOMINAL DISEASE. Head CT 02/14/17 11:42 IMPRESSION: CHRONIC CHANGES OF ATROPHY AND MICROVASCULAR ISCHEMIA. NO ACUTE PROCESS. EVIDENCE OF ACUTE STROKE: NO. Wrist X-Ray 02/14/17 11:52 IMPRESSION: Fracture of the distal radius. Cervical Spine CT 02/14/17 14:51 IMPRESSION: CHRONIC DEGENERATIVE CHANGES. NO ACUTE FINDINGS. Lumbar Spine CT 02/14/17 14:51 IMPRESSION: No fracture identified. Thoracic Spine CT 02/14/17 14:51 IMPRESSION: No acute findings. Carotid Doppler Study 02/15/17 00:00 IMPRESSION: NO HEMODYNAMICALLY SIGNIFICANT STENOSIS. Head MRI 02/15/17 09:00 IMPRESSION: ATROPHY AND CHRONIC MICRO-VASCULAR ISCHEMIC CHANGES. OTHERWISE UNREMARKABLE MRI OF THE BRAIN WITHOUT AND WITH INTRAVENOUS GADOLINIUM CONTRAST. EVIDENCE OF ACUTE STROKE: NO. Assessment & Plan - Diagnosis (1) Syncope Qualifiers: Syncope type: unspecified Qualified Code(s): R55 - Syncope and collapse Is this a current diagnosis for this admission?: Yes Plan: Uncertain as to what really happened. She is orthostatic from lying to sitting. Carotid Doppler negative for stenosis. Cardiac echo completed however not read. MRI of brain shows small vessel changes. Because of the positive orthostasis, patient will be continued on IV fluids. Beta-esperanza will be decreased. The patient may be orthostatic syncope does not explain her persistent loss of memory. With both MRI and CT scan showing atrophy and small vessel changes, there is concern for vascular dementia which would explain patient's confusion and/or memory loss. (2) Global amnesia Is this a current diagnosis for this admission?: Yes Plan: Patient still does not remember much of anything. There is no treatment for this condition should resolve on its own. I am beginning to feel that patient may have some undiagnosed vascular dementia based on the findings on both her CT scan and MRI. Will have to continue following patient closely. Patient also could be having subclinical seizures. Will start patient on low-dose Keppra 500 mg p.o. twice daily. Patient to follow-up with neurology on discharge. Patient should not drive, be alone, take baths alone for the next 6 months. Will check patient B12 folate and thiamine. Patient TSH is normal. If any of these are abnormal they should be corrected. At this time it is no longer for patient to live alone. Patient family are making arrangements for her not to be alone. They would like patient to receive rehab prior to returning home. (3) Dehydration Is this a current diagnosis for this admission?: Yes Plan: Will continue IV hydration especially with patient being orthostatic from lying to sitting. If this persists despite receiving hydration patient may need to be started on Midodrin or Florinef. (4) Left wrist fracture Is this a current diagnosis for this admission?: Yes Plan: Patient left arm is currently in a splint. Dr. Royal orthopedics was consulted. For closed reduction. A medical standpoint patient is stable enough to have this procedure done. However be cautious with the use of anesthesia as patient is already showing signs of cognitive impairment whether this being acute or chronic and could have worsening symptoms with the use of anesthesia. Plan is for discharge to rehab once patient is treated. (5) CKD (chronic kidney disease), stage III Is this a current diagnosis for this admission?: Yes Plan: Stable. (6) Diabetes mellitus type 2 in obese Is this a current diagnosis for this admission?: Yes Plan: Patient will be started on sliding scale insulin. - Time Time Spent with patient: 15-24 minutes Anticipated discharge: SNF Within: Other
[2017-02-15] MEDS ORDERED: NORMAL SALINE 1000 ML 1,000 ML IV PRN (19:43)
[2017-02-15] MEDS: LEVETIRACETAM 500 MG TABLET PO SCH (21:51)
[2017-02-15] MEDS: FAMOTIDINE 20 MG TABLET PO SCH (21:51)
[2017-02-15] MEDS ORDERED: FAMOTIDINE 20 MG TABLET PO SCH (22:00)
[2017-02-15] MEDS ORDERED: (PENDING PHARMACY ID) (Ranitidine Hcl [Ranitidine Hcl] 300 MG) PO SCH (22:00)
[2017-02-15] MEDS ORDERED: (PENDING PHARMACY ID) (Ranitidine Hcl [Zantac] 300 MG) PO SCH (22:00)
[2017-02-16 05:21] LABS: ANION GAP 6 (5-19); BLOOD UREA NITROGEN 32 mg/dL (7-20); CARBON DIOXIDE 26 mmol/L (22-30); CHLORIDE 109 mmol/L (98-107); CREATININE RESULT 0.95 mg/dL (0.52-1.25); GLUCOSE 145 mg/dL (75-110); MAGNESIUM 1.6 mg/dL (1.6-2.3); SODIUM 140.7 mmol/L (137-145)
[2017-02-16 06:26] LABS: FOLATE > 20.00 ng/mL (>2.76)
[2017-02-16] MEDS: RINGERS SOLUTION,LACTATED 1,000 ML IV PRN ×2 (08:31→23:06)
[2017-02-16] MEDS: LEVOTHYROXINE SODIUM 0.1 MG TABLET PO SCH (08:31)
[2017-02-16] MEDS: FLUTICASONE NASAL SPRAY 50 MCG/SPRY 120 SPRAY/16 GM NASL SCH (09:04)
[2017-02-16] MEDS: FLUOXETINE HCL 20 MG CAPSULE PO SCH (09:05)
[2017-02-16] MEDS: METOPROLOL TARTRATE 25 MG TABLET PO SCH ×2 (09:05→21:32)
[2017-02-16] MEDS: LEVETIRACETAM 500 MG TABLET PO SCH ×2 (09:05→21:32)
[2017-02-16] MEDS: FAMOTIDINE 20 MG TABLET PO SCH ×2 (09:05→21:32)
--- NOTE | 2017-02-16 09:30 | XCELERA REPORT ---
[address] [address] Transthoracic Echocardiogram Report Name: PRIYA CANTRELL Age: 81 yrs Gender: Female : 1935 Patient Status: Inpatient Patient Location: [address] [place] [address] Study Date: 02/15/2017 10:23 AM Height: 65 in Weight: 162 lb BSA: 1.8 m2 Procedure: A complete two-dimensional transthoracic echocardiogram was performed (2D, M-mode, spectral and color flow Doppler). The study was technically difficult with many images being suboptimal in quality. Reason For Study: syncope Ordering Physician: ALVARO HEATH Performed By: Thelma Sharma Interpretation Summary The left ventricular ejection fraction is normal. Doppler measurements suggest pseudonormalized left ventricular relaxation, which is associated with grade II/IV or mild to moderate diastolic dysfunction The left ventricle is grossly normal size. There is borderline concentric left ventricular hypertrophy. Wall motion cannot be accurately commented on, but no definite regional wall motion abnormalities noted. The right ventricle is moderately dilated. The right ventricle appears to be hypertrophied The right ventricular systolic function is mildly reduced. Borderline left atrial enlargement. The right atrium is mildly dilated. There is a trace amount of mitral regurgitation There is no mitral valve stenosis. No aortic regurgitation is present. There is no aortic valve stenosis There is a trace to mild amount of tricuspid regurgitation There is mild pulmonary hypertension by echo Right ventricular systolic pressure is estimated to be elevated at 40- 50mmHg. The aortic root is not well visualized but is probably normal size. The inferior vena cava appeared normal and decreased > 50% with respiration (RAP 5-10 mmHg) Minimal pericardial effusion. MMode/2D Measurements & Calculations RVDd: 3.6 cm LVIDd: 4.4 cm FS: 43.5 % Ao root diam: 2.6 cm IVSd: 0.96 cm LVIDs: 2.5 cm EDV(Teich): 87.0 ml LVPWd: 1.0 cm ESV(Teich): 21.8 ml Ao root area: 5.2 cm2 EF(Teich): 74.9 % LA dimension: 3.8 cm Doppler Measurements & Calculations MV E max carissa: MV P1/2t max carissa: Ao V2 max: LV V1 max P.1 cm/sec 74.5 cm/sec 144.8 cm/sec 2.4 mmHg MV A max carissa: MV P1/2t: 85.2 msec Ao max PG: LV V1 max: 110.6 cm/sec 8.4 mmHg 77.0 cm/sec MV E/A: 0.66 MVA(P1/2t): 2.6 cm2 MV dec slope: 256.1 cm/sec2 MV dec time: 0.30 sec PA V2 max: TR max carissa: 73.5 cm/sec 295.6 cm/sec PA max P.2 mmHgTR max P.0 mmHg Left Ventricle The left ventricle is grossly normal size. There is borderline concentric left ventricular hypertrophy. The left ventricular ejection fraction is normal. Doppler measurements suggest pseudonormalized left ventricular relaxation, which is associated with grade II/IV or mild to moderate diastolic dysfunction. Wall motion cannot be accurately commented on, but no definite regional wall motion abnormalities noted. Right Ventricle The right ventricle is moderately dilated. The right ventricle appears to be hypertrophied. The right ventricular systolic function is mildly reduced. Atria The right atrium is mildly dilated. Borderline left atrial enlargement. Interarterial septum not well visualized and not well dopplered. Cannot comment on ASD/PFO presence. Mitral Valve The mitral valve leaflets are sclerotic, but show no functional abnormalities. There is no mitral valve stenosis. There is a trace amount of mitral regurgitation. Aortic Valve The aortic valve is mildly calcified. The aortic valve opens well. There is no aortic valve stenosis. No aortic regurgitation is present. Tricuspid Valve The tricuspid valve is not well visualized secondary to technical limitations. There is no tricuspid stenosis. There is a trace to mild amount of tricuspid regurgitation. There is mild pulmonary hypertension by echo. Right ventricular systolic pressure is estimated to be elevated at 40-50mmHg. Pulmonic Valve The pulmonic valve is not well visualized. Great Vessels The aortic root is not well visualized but is probably normal size. The inferior vena cava appeared normal and decreased > 50% with respiration (RAP 5-10 mmHg). Effusions Minimal pericardial effusion. : ALVARO HEATH > Gladys Putnam
[2017-02-16] MEDS ORDERED: LANSOPRAZOLE 30 MG TAB.RAP.DR PO SCH (10:00)
[2017-02-16] MEDS ORDERED: FLUOXETINE HCL 20 MG CAPSULE PO SCH (10:00)
--- NOTE | 2017-02-16 11:32 | PDOC PROGRESS REPORT ---
Subjective Progress Note for:: 02/16/17 Subjective:: Patient is an 81-year-old woman who was brought 02/14/2017 after she was found down in her house by EMS. She was found covered in stools and urine and unknown how long she was down. She lives by herself she was last seen by Family members 3 days prior to admission. Presentation she was found to have a left wrist fracture and had a negative CAT scan of the brain. He did have an ID disease admission with chronic changes. Seen and examined this am and she is scheduled to be taken to the OR by ortho for L arm surgery. She she reports feeling tired and denies having any pain. She seems to be having slow speech but oriented. Physical Exam Vital Signs: Temp Pulse Resp BP Pulse Ox 98.2 F 59 L 20 151/64 H 97 02/16/17 08:00 02/16/17 08:00 02/16/17 08:00 02/16/17 08:00 02/16/17 08:00 Intake & Output 02/15/17 02/16/17 02/17/17 06:59 06:59 06:59 Intake Total 600 5579 Output Total 700 850 Balance -100 4729 Weight 74.1 kg 73.7 kg General appearance: PRESENT: no acute distress, well-developed, well-nourished, other - Pleasant elderly woman Head exam: PRESENT: atraumatic, normocephalic Eye exam: PRESENT: conjunctiva pink, EOMI. ABSENT: scleral icterus Mouth exam: PRESENT: moist, tongue midline Neck exam: ABSENT: JVD, lymphadenopathy, thyromegaly Respiratory exam: PRESENT: clear to auscultation odalis. ABSENT: rales, rhonchi, wheezes Cardiovascular exam: PRESENT: RRR. ABSENT: diastolic murmur, rubs, systolic murmur Vascular exam: PRESENT: normal capillary refill GI/Abdominal exam: PRESENT: normal bowel sounds, soft. ABSENT: distended, guarding, mass, organolmegaly, rebound, tenderness Rectal exam: PRESENT: deferred Extremities exam: PRESENT: other - L arm cast in place. ABSENT: calf tenderness , clubbing, pedal edema Neurological exam: PRESENT: alert, awake, oriented to person, oriented to place , oriented to time, oriented to situation. ABSENT: motor sensory deficit Psychiatric exam: PRESENT: appropriate affect, normal mood. ABSENT: homicidal ideation, suicidal ideation Skin exam: PRESENT: dry, warm. ABSENT: cyanosis Results Laboratory Results: 02/15/17 04:09 02/16/17 04:28 02/16/17 04:28 Sodium 140.7 Potassium 4.0 Chloride 109 H Carbon Dioxide 26 Anion Gap 6 BUN 32 H Creatinine 0.95 Est GFR ( Amer) > 60 Est GFR (Non-Af Amer) 56 L Glucose 145 H Calcium 10.0 Magnesium 1.6 Vitamin B12 991.0 H Folate > 20.00 Impressions: Hip/Pelvis X-Ray 02/14/17 11:40 IMPRESSION: NO RADIOGRAPHIC EVIDENCE OF ACUTE INJURY. Acute Abdomen Series 02/14/17 11:42 IMPRESSION: NO RADIOGRAPHIC EVIDENCE FOR ACUTE ABDOMINAL DISEASE. Head CT 02/14/17 11:42 IMPRESSION: CHRONIC CHANGES OF ATROPHY AND MICROVASCULAR ISCHEMIA. NO ACUTE PROCESS. EVIDENCE OF ACUTE STROKE: NO. Wrist X-Ray 02/14/17 11:52 IMPRESSION: Fracture of the distal radius. Cervical Spine CT 02/14/17 14:51 IMPRESSION: CHRONIC DEGENERATIVE CHANGES. NO ACUTE FINDINGS. Lumbar Spine CT 02/14/17 14:51 IMPRESSION: No fracture identified. Thoracic Spine CT 02/14/17 14:51 IMPRESSION: No acute findings. Carotid Doppler Study 02/15/17 00:00 IMPRESSION: NO HEMODYNAMICALLY SIGNIFICANT STENOSIS. Head MRI 02/15/17 09:00 IMPRESSION: ATROPHY AND CHRONIC MICRO-VASCULAR ISCHEMIC CHANGES. OTHERWISE UNREMARKABLE MRI OF THE BRAIN WITHOUT AND WITH INTRAVENOUS GADOLINIUM CONTRAST. EVIDENCE OF ACUTE STROKE: NO. Assessment & Plan - Diagnosis (1) Syncope Qualifiers: Syncope type: unspecified Qualified Code(s): R55 - Syncope and collapse Is this a current diagnosis for this admission?: Yes Plan: Echocardiogram this admission with borderline concentric LVH and LV ejection fracture within normal Mild to moderate diastolic dysfunction and no definite regional wall motion abnormalities MRI brain with chronic changes without acute findings Blood pressure noted and seems acceptable for age group If this recurs, she will benefit from outpatient neurology evaluation (2) Global amnesia Is this a current diagnosis for this admission?: Yes Plan: Noted to see admission on [facility] for concern for subclinical seizures Seizure precaution She will need to be followed by neurology on discharge for further evaluation (3) Dehydration Is this a current diagnosis for this admission?: Yes Plan: She has been n.p.o. overnight and scheduled for surgery Continue IV fluid (4) Left wrist fracture Is this a current diagnosis for this admission?: Yes Plan: Pain control and scheduled for surgery today (5) CKD (chronic kidney disease), stage III Is this a current diagnosis for this admission?: Yes Plan: Renal function stable Renally dose all medication (6) Diabetes mellitus type 2 in obese Is this a current diagnosis for this admission?: Yes Plan: Blood sugars seems to be at goal Continue sliding-scale (7) Leukocytosis, unspecified Qualifiers: Leukocytosis type: unspecified Qualified Code(s): D72.829 - Elevated white blood cell count, unspecified Plan: Seems to be improving Likely in setting of trauma Urine and blood culture negative Follow-up CBC - Time Time Spent with patient: 15-24 minutes Anticipated discharge: Acute Rehab Within: Other - Scheduled for surgery today and will reassess
[2017-02-16] MEDS ORDERED: MIDAZOLAM 2 MG/2 ML INJ ONE (13:28)
[2017-02-16] MEDS ORDERED: PROPOFOL INJ 200 MG/20 ML VIAL IV ONE (13:29)
[2017-02-16] MEDS ORDERED: BUPIVACAINE HCL 0.25% /EPINEPHRINE INJ/PF 30 ML SDV ONE (14:02)
[2017-02-16] MEDS ORDERED: PROMETHAZINE HCL INJ 25 MG/1 ML VIAL IV PRN ×2 (14:09)
[2017-02-16] MEDS ORDERED: DIPHENHYDRAMINE HCL 50 MG/ML VIAL IV PRN (14:09)
--- NOTE | 2017-02-16 14:21 | Operative Report ---
Operative Report DATE OF SURGERY: 02/16/17 PREOPERATIVE DIAGNOSIS: Left distal radius fracture OPERATION: Hematoma block and closed reduction with splint application SURGEON: ROOSEVELT GOMEZ ANESTHESIA: LMAC PROCEDURE: The patient supine on the OR gurney and under a mild IV sedation a 21-gauge needle was advanced into the distal radial hematoma and used to introduce 5 cc of quarter percent Marcaine containing epinephrine. Subsequently the fracture was manipulated under fluoroscopic guidance to affected near anatomic reduction. A splint is next placed. The fracture reduction was again checked in the splint and was found not to have changed. The patient was returned to the PACU in satisfactory condition.
[2017-02-16] MEDS ORDERED: RINGERS SOLUTION,LACTATED 1,000 ML IV PRN (14:28)
--- NOTE | 2017-02-16 15:28 | RADIOLOGY REPORT (SQ) ---
EXAM DESCRIPTION: WRIST LEFT 2 VIEWS COMPLETED DATE/TIME: 02/16/2017 2:40 pm REASON FOR STUDY: CLOSED REDUCTION LEFT WRIST ASSISTED WITH FLUORO IN OR COMPARISON: None. FLUOROSCOPY TIME: 0 minutes 3 images saved to PACS. TECHNIQUE: Intra-operative images acquired during surgical procedure to evaluate progress. NUMBER OF IMAGES: 3 image LIMITATIONS: None. FINDINGS: Fluoroscopic images were obtained during close reduction of the left wrist fracture. Plea se refer to the surgeon's operative report for additional information. IMPRESSION: IMAGE(S) OBTAINED DURING PROCEDURE. COMMENT: Quality ID [id number]: Final reports for procedures using fluoroscopy that document radiation exp osure indices, or exposure time and number of fluorographic images (if radiation exposure indices are not available) Please consult full operative report of the attending physician for description of the procedure. TECHNICAL DOCUMENTATION: JOB ID: [id number] [employer]- All Rights Reserved
--- NOTE | 2017-02-16 15:28 | RADIOLOGY REPORT (SQ) ---
EXAM DESCRIPTION: NO CHG FLUORO COMPLETE DATE/TIME: 02/16/2017 2:40 pm REASON FOR STUDY: CLOSED REDUCTION LEFT WRIST ASSISTED WITH FLUORO IN OR FINDINGS: Please see combined report for performance of procedure and radiologic supervision and int erpretation. IMPRESSION: Please see combined report for performance of procedure and radiologic supervision and i nterpretation.
[2017-02-16] MEDS: HYDROCODONE/ACETAMINOPHEN 7.5-325 MG TABLET PO PRN (18:02)
--- NOTE | 2017-02-17 06:56 | PDOC PROGRESS REPORT ---
Subjective Progress Note for:: 02/17/17 Subjective:: Patient with less confusion today Physical Exam Vital Signs: Temp Pulse Resp BP Pulse Ox 36.3 C 58 L 17 167/84 H 98 02/17/17 04:02 02/17/17 04:02 02/17/17 04:02 02/17/17 04:02 02/17/17 04:02 Intake & Output 02/15/17 02/16/17 02/17/17 06:59 06:59 06:59 Intake Total 600 5579 2290 Output Total 229 181 4033 Balance -100 4729 790 Weight 74.1 kg 73.7 kg 74.5 kg General appearance: PRESENT: no acute distress Head exam: PRESENT: normocephalic Respiratory exam: PRESENT: unlabored Cardiovascular exam: PRESENT: RRR Extremities exam: PRESENT: other - Left upper extremity immobilized in a posterior splint. Fingers have brisk capillary refill and active range of motion. Results Laboratory Results: 02/15/17 04:09 02/16/17 04:28 Impressions: Hip/Pelvis X-Ray 02/14/17 11:40 IMPRESSION: NO RADIOGRAPHIC EVIDENCE OF ACUTE INJURY. Acute Abdomen Series 02/14/17 11:42 IMPRESSION: NO RADIOGRAPHIC EVIDENCE FOR ACUTE ABDOMINAL DISEASE. Head CT 02/14/17 11:42 IMPRESSION: CHRONIC CHANGES OF ATROPHY AND MICROVASCULAR ISCHEMIA. NO ACUTE PROCESS. EVIDENCE OF ACUTE STROKE: NO. Cervical Spine CT 02/14/17 14:51 IMPRESSION: CHRONIC DEGENERATIVE CHANGES. NO ACUTE FINDINGS. Lumbar Spine CT 02/14/17 14:51 IMPRESSION: No fracture identified. Thoracic Spine CT 02/14/17 14:51 IMPRESSION: No acute findings. Carotid Doppler Study 02/15/17 00:00 IMPRESSION: NO HEMODYNAMICALLY SIGNIFICANT STENOSIS. Head MRI 02/15/17 09:00 IMPRESSION: ATROPHY AND CHRONIC MICRO-VASCULAR ISCHEMIC CHANGES. OTHERWISE UNREMARKABLE MRI OF THE BRAIN WITHOUT AND WITH INTRAVENOUS GADOLINIUM CONTRAST. EVIDENCE OF ACUTE STROKE: NO. Fluoroscopy 02/16/17 00:00 IMPRESSION: Please see combined report for performance of procedure and radiologic supervision and interpretation. Wrist X-Ray 02/16/17 00:00 IMPRESSION: IMAGE(S) OBTAINED DURING PROCEDURE. Status: Imported from PACS Assessment & Plan - Diagnosis (1) Left wrist fracture Is this a current diagnosis for this admission?: Yes Plan: 81-year-old white female postop day 1 from a closed reduction of the left distal radius fracture with uneventful postoperative course. She mobilizes with physical therapy the use of a platform walker and limited weightbearing on the left wrist would be appropriate. - Time Time Spent with patient: 15-24 minutes Anticipated discharge: SNF Within: Other
[2017-02-17] MEDS: LEVOTHYROXINE SODIUM 0.1 MG TABLET PO SCH (08:48)
[2017-02-17] MEDS: FLUTICASONE NASAL SPRAY 50 MCG/SPRY 120 SPRAY/16 GM NASL SCH (10:16)
[2017-02-17] MEDS: METOPROLOL TARTRATE 25 MG TABLET PO SCH ×2 (10:17→22:04)
[2017-02-17] MEDS: LEVETIRACETAM 500 MG TABLET PO SCH ×2 (10:17→22:05)
[2017-02-17] MEDS: AMLODIPINE BESYLATE 5 MG TABLET PO SCH (10:17)
[2017-02-17] MEDS: FAMOTIDINE 20 MG TABLET PO SCH ×2 (10:17→22:05)
[2017-02-17] MEDS: FLUOXETINE HCL 20 MG CAPSULE PO SCH (10:18)
--- NOTE | 2017-02-17 14:49 | PDOC PROGRESS REPORT ---
Subjective Progress Note for:: 02/17/17 Subjective:: Patient is an 81-year-old woman who was brought 02/14/2017 after she was found down in her house by EMS. She was found covered in stools and urine and unknown how long she was down. She lives by herself she was last seen by family members 3 days prior to admission per report. Presentation she was found to have a left wrist fracture and had a negative CAT scan of the brain. She did have an MRI brain this admission with chronic changes. She did sustain left arm fracture, she was seen and evaluated by ortho and she was taken to the OR on February 16, 2017 and she did have a closed with reduction with a splint application done. Seen and examined this am and she did report some arm pain but she was seen moving her fingers. Her patient's status has been changed from observation to inpatient. This management on board for placement as she will need to go to rehabilitation. Physical Exam Vital Signs: Temp Pulse Resp BP Pulse Ox 97.7 F 59 L 22 H 150/78 H 95 02/17/17 11:30 02/17/17 11:30 02/17/17 11:30 02/17/17 11:30 02/17/17 11:30 Intake & Output 02/16/17 02/17/17 02/18/17 06:59 06:59 06:59 Intake Total 5579 2290 237 Output Total 850 1500 Balance 4729 790 237 Weight 73.7 kg 74.5 kg General appearance: PRESENT: no acute distress, other - Pleasant elderly woman Head exam: PRESENT: atraumatic, normocephalic Eye exam: PRESENT: EOMI. ABSENT: scleral icterus Mouth exam: PRESENT: dry mucosa, tongue midline Neck exam: PRESENT: thyromegaly Respiratory exam: PRESENT: clear to auscultation odalis. ABSENT: rales, rhonchi, wheezes Cardiovascular exam: PRESENT: RRR. ABSENT: diastolic murmur, rubs, systolic murmur Vascular exam: PRESENT: normal capillary refill GI/Abdominal exam: PRESENT: normal bowel sounds, soft. ABSENT: distended, guarding, mass, organolmegaly, rebound, tenderness Rectal exam: PRESENT: deferred Extremities exam: PRESENT: other - Left upper extremity with splint in place. ABSENT: calf tenderness, clubbing, pedal edema Neurological exam: PRESENT: alert, awake, oriented to person, oriented to place. ABSENT: motor sensory deficit Psychiatric exam: PRESENT: appropriate affect, normal mood. ABSENT: homicidal ideation, suicidal ideation Skin exam: PRESENT: dry, warm. ABSENT: cyanosis, rash Results Laboratory Results: 02/15/17 04:09 02/16/17 04:28 Impressions: Hip/Pelvis X-Ray 02/14/17 11:40 IMPRESSION: NO RADIOGRAPHIC EVIDENCE OF ACUTE INJURY. Acute Abdomen Series 02/14/17 11:42 IMPRESSION: NO RADIOGRAPHIC EVIDENCE FOR ACUTE ABDOMINAL DISEASE. Head CT 02/14/17 11:42 IMPRESSION: CHRONIC CHANGES OF ATROPHY AND MICROVASCULAR ISCHEMIA. NO ACUTE PROCESS. EVIDENCE OF ACUTE STROKE: NO. Cervical Spine CT 02/14/17 14:51 IMPRESSION: CHRONIC DEGENERATIVE CHANGES. NO ACUTE FINDINGS. Lumbar Spine CT 02/14/17 14:51 IMPRESSION: No fracture identified. Thoracic Spine CT 02/14/17 14:51 IMPRESSION: No acute findings. Carotid Doppler Study 02/15/17 00:00 IMPRESSION: NO HEMODYNAMICALLY SIGNIFICANT STENOSIS. Head MRI 02/15/17 09:00 IMPRESSION: ATROPHY AND CHRONIC MICRO-VASCULAR ISCHEMIC CHANGES. OTHERWISE UNREMARKABLE MRI OF THE BRAIN WITHOUT AND WITH INTRAVENOUS GADOLINIUM CONTRAST. EVIDENCE OF ACUTE STROKE: NO. Fluoroscopy 02/16/17 00:00 IMPRESSION: Please see combined report for performance of procedure and radiologic supervision and interpretation. Wrist X-Ray 02/16/17 00:00 IMPRESSION: IMAGE(S) OBTAINED DURING PROCEDURE. Assessment & Plan - Diagnosis (1) Syncope Qualifiers: Syncope type: unspecified Qualified Code(s): R55 - Syncope and collapse Is this a current diagnosis for this admission?: Yes Plan: Echocardiogram this admission with borderline concentric LVH and LV ejection fracture within normal Mild to moderate diastolic dysfunction and no definite regional wall motion abnormalities MRI brain with chronic changes without acute findings If this recurs, she will benefit from outpatient neurology evaluation (2) Global amnesia Is this a current diagnosis for this admission?: Yes Plan: Noted to see admission on [facility] for concern for subclinical seizures Seizure precaution She will need to be followed by neurology on discharge for further evaluation (3) Dehydration Is this a current diagnosis for this admission?: Yes Plan: She has been off IV fluid and encourage good p.o. intake (4) Left wrist fracture Is this a current diagnosis for this admission?: Yes Plan: Pain control and status post closed reduction with splint application on February 16, 2017 (5) CKD (chronic kidney disease), stage III Is this a current diagnosis for this admission?: Yes Plan: Renal function stable Renally dose all medication (6) Leukocytosis, unspecified Qualifiers: Leukocytosis type: unspecified Qualified Code(s): D72.829 - Elevated white blood cell count, unspecified Plan: Stable and afebrile CBC in am (7) Hypertension Qualifiers: Hypertension type: essential hypertension Qualified Code(s): I10 - Essential (primary) hypertension Is this a current diagnosis for this admission?: Yes Plan: Continue Lopressor and amlodipine added for better control (8) Hypothyroid Qualifiers: Hypothyroidism type: unspecified Qualified Code(s): E03.9 - Hypothyroidism , unspecified Is this a current diagnosis for this admission?: Yes Plan: Continue Synthroid (9) Ambulatory dysfunction Is this a current diagnosis for this admission?: Yes Plan: Continue physical therapy She will need to be discharged to a rehab facility
[2017-02-17 16:13] LABS: ABSOLUTE EOSINOPHILS # (AUTO) 0.3 10^3/uL (0.0-0.6); ABSOLUTE LYMPHOCYTES (AUTO) 1.6 10^3/uL (0.5-4.7); ABSOLUTE NEUT (AUTO) 6.7 10^3/uL (1.7-8.2); BASOPHILS % (AUTO) 0.2 % (0-2); EOSINOPHILS % (AUTO) 2.8 % (0-6); HEMATOCRIT 41.8 % (36.0-47.0); HEMOGLOBIN 14.1 g/dL (12.0-15.5); HGB HCT DIFFERENCE 0.5; LYMPHOCYTES % (AUTO) 17.1 % (13-45); MEAN CORPUSCULAR HEMOGLOBIN 32.4 pg (27.0-33.4); MEAN CORPUSCULAR HGB CONC 33.7 g/dL (32.0-36.0); MEAN CORPUSCULAR VOLUME 96 fl (80-97); RED BLOOD COUNT 4.35 10^6/uL (3.72-5.28); SEGMENTED NEUTROPHILS % (AUTO) 69.9 % (42-78); WHITE BLOOD COUNT 9.5 10^3/uL (4.0-10.5)
--- NOTE | 2017-02-18 05:38 | PDOC PROGRESS REPORT ---
Subjective Progress Note for:: 02/18/17 Subjective:: Patient resting comfortably Physical Exam Vital Signs: Temp Pulse Resp BP Pulse Ox 36.4 C 57 L 20 146/62 H 94 02/18/17 03:37 02/18/17 03:37 02/18/17 03:37 02/18/17 03:37 02/18/17 03:37 Intake & Output 02/16/17 02/17/17 02/18/17 06:59 06:59 06:59 Intake Total 5579 2290 740 Output Total 850 1500 0 Balance 4729 790 740 Weight 73.7 kg 74.5 kg Musculoskeletal exam: PRESENT: other - Left upper extremity immobilized in a splint. There is minimal swelling in the fingers. There is brisk capillary refill. Results Laboratory Results: 02/17/17 15:30 02/16/17 04:28 02/17/17 15:30 WBC 9.5 RBC 4.35 Hgb 14.1 Hct 41.8 MCV 96 MCH 32.4 MCHC 33.7 RDW 15.0 H Plt Count 161 Seg Neutrophils % 69.9 Lymphocytes % 17.1 Monocytes % 10.0 Eosinophils % 2.8 Basophils % 0.2 Absolute Neutrophils 6.7 Absolute Lymphocytes 1.6 Absolute Monocytes 1.0 Absolute Eosinophils 0.3 Absolute Basophils 0.0 Impressions: Hip/Pelvis X-Ray 02/14/17 11:40 IMPRESSION: NO RADIOGRAPHIC EVIDENCE OF ACUTE INJURY. Acute Abdomen Series 02/14/17 11:42 IMPRESSION: NO RADIOGRAPHIC EVIDENCE FOR ACUTE ABDOMINAL DISEASE. Head CT 02/14/17 11:42 IMPRESSION: CHRONIC CHANGES OF ATROPHY AND MICROVASCULAR ISCHEMIA. NO ACUTE PROCESS. EVIDENCE OF ACUTE STROKE: NO. Cervical Spine CT 02/14/17 14:51 IMPRESSION: CHRONIC DEGENERATIVE CHANGES. NO ACUTE FINDINGS. Lumbar Spine CT 02/14/17 14:51 IMPRESSION: No fracture identified. Thoracic Spine CT 02/14/17 14:51 IMPRESSION: No acute findings. Carotid Doppler Study 02/15/17 00:00 IMPRESSION: NO HEMODYNAMICALLY SIGNIFICANT STENOSIS. Head MRI 02/15/17 09:00 IMPRESSION: ATROPHY AND CHRONIC MICRO-VASCULAR ISCHEMIC CHANGES. OTHERWISE UNREMARKABLE MRI OF THE BRAIN WITHOUT AND WITH INTRAVENOUS GADOLINIUM CONTRAST. EVIDENCE OF ACUTE STROKE: NO. Fluoroscopy 02/16/17 00:00 IMPRESSION: Please see combined report for performance of procedure and radiologic supervision and interpretation. Wrist X-Ray 02/16/17 00:00 IMPRESSION: IMAGE(S) OBTAINED DURING PROCEDURE. Status: Imported from PACS Assessment & Plan - Diagnosis (1) Left wrist fracture Is this a current diagnosis for this admission?: Yes Plan: Mobilization with physical therapy and a nonweightbearing basis involving the left upper extremity presumably with a platform walker - Time Time Spent with patient: 15-24 minutes Anticipated discharge: SNF Within: when bed available
[2017-02-18] MEDS: LEVOTHYROXINE SODIUM 0.1 MG TABLET PO SCH (10:57)
[2017-02-18] MEDS: AMLODIPINE BESYLATE 5 MG TABLET PO SCH (11:01)
[2017-02-18] MEDS: FLUTICASONE NASAL SPRAY 50 MCG/SPRY 120 SPRAY/16 GM NASL SCH (11:02)
[2017-02-18] MEDS: LEVETIRACETAM 500 MG TABLET PO SCH ×2 (11:02→23:06)
[2017-02-18] MEDS: FLUOXETINE HCL 20 MG CAPSULE PO SCH (11:02)
[2017-02-18] MEDS: FAMOTIDINE 20 MG TABLET PO SCH ×2 (11:02→23:06)
[2017-02-18] MEDS: METOPROLOL TARTRATE 25 MG TABLET PO SCH ×2 (11:02→22:00)
--- NOTE | 2017-02-18 11:52 | PDOC PROGRESS REPORT ---
Subjective Progress Note for:: 02/18/17 Subjective:: Patient is an 81-year-old woman who was brought 02/14/2017 after she was found down in her house by EMS. She was found covered in stools and urine and unknown how long she was down. She lives by herself she was last seen by family members 3 days prior to admission per report. Presentation she was found to have a left wrist fracture and had a negative CAT scan of the brain. She did have an MRI brain this admission with chronic changes and no acute findings. She did sustain left arm fracture, she was seen and evaluated by ortho and she was taken to the OR on February 16, 2017 and she did have a closed with reduction with a splint application done. Seen and examined this am and she reports having a headache which is not new. She does have a history of migraine. Also reporting some arm pain. Physical Exam Vital Signs: Temp Pulse Resp BP Pulse Ox 98.0 F 54 L 16 147/56 H 94 02/18/17 07:38 02/18/17 07:38 02/18/17 07:38 02/18/17 07:38 02/18/17 07:38 Intake & Output 02/17/17 02/18/17 02/19/17 06:59 06:59 06:59 Intake Total 2290 780 Output Total 1500 0 Balance 790 780 Weight 74.5 kg 71.4 kg Results Laboratory Results: 02/17/17 15:30 02/16/17 04:28 02/17/17 15:30 WBC 9.5 RBC 4.35 Hgb 14.1 Hct 41.8 MCV 96 MCH 32.4 MCHC 33.7 RDW 15.0 H Plt Count 161 Seg Neutrophils % 69.9 Lymphocytes % 17.1 Monocytes % 10.0 Eosinophils % 2.8 Basophils % 0.2 Absolute Neutrophils 6.7 Absolute Lymphocytes 1.6 Absolute Monocytes 1.0 Absolute Eosinophils 0.3 Absolute Basophils 0.0 Impressions: Hip/Pelvis X-Ray 02/14/17 11:40 IMPRESSION: NO RADIOGRAPHIC EVIDENCE OF ACUTE INJURY. Acute Abdomen Series 02/14/17 11:42 IMPRESSION: NO RADIOGRAPHIC EVIDENCE FOR ACUTE ABDOMINAL DISEASE. Head CT 02/14/17 11:42 IMPRESSION: CHRONIC CHANGES OF ATROPHY AND MICROVASCULAR ISCHEMIA. NO ACUTE PROCESS. EVIDENCE OF ACUTE STROKE: NO. Cervical Spine CT 02/14/17 14:51 IMPRESSION: CHRONIC DEGENERATIVE CHANGES. NO ACUTE FINDINGS. Lumbar Spine CT 02/14/17 14:51 IMPRESSION: No fracture identified. Thoracic Spine CT 02/14/17 14:51 IMPRESSION: No acute findings. Carotid Doppler Study 02/15/17 00:00 IMPRESSION: NO HEMODYNAMICALLY SIGNIFICANT STENOSIS. Head MRI 02/15/17 09:00 IMPRESSION: ATROPHY AND CHRONIC MICRO-VASCULAR ISCHEMIC CHANGES. OTHERWISE UNREMARKABLE MRI OF THE BRAIN WITHOUT AND WITH INTRAVENOUS GADOLINIUM CONTRAST. EVIDENCE OF ACUTE STROKE: NO. Fluoroscopy 02/16/17 00:00 IMPRESSION: Please see combined report for performance of procedure and radiologic supervision and interpretation. Wrist X-Ray 02/16/17 00:00 IMPRESSION: IMAGE(S) OBTAINED DURING PROCEDURE. Assessment & Plan - Diagnosis (1) Syncope Qualifiers: Syncope type: unspecified Qualified Code(s): R55 - Syncope and collapse Is this a current diagnosis for this admission?: Yes Plan: Echocardiogram this admission with borderline concentric LVH and LV ejection fracture within normal Mild to moderate diastolic dysfunction and no definite regional wall motion abnormalities MRI brain with chronic changes and without acute findings Continue current management and she will need a different home arrangement prior admission (2) Global amnesia Is this a current diagnosis for this admission?: Yes Plan: Noted to see admission on [facility] for concern for subclinical seizures Seizure precaution She will need to be followed by neurology on discharge for further evaluation (3) Left wrist fracture Is this a current diagnosis for this admission?: Yes Plan: Pain control Status post closed reduction with splint application on February 16, 2017 Continue physical therapy Ortho on board (4) CKD (chronic kidney disease), stage III Is this a current diagnosis for this admission?: Yes Plan: Renal function stable Renally dose all medication (5) Leukocytosis, unspecified Qualifiers: Leukocytosis type: unspecified Qualified Code(s): D72.829 - Elevated white blood cell count, unspecified Is this a current diagnosis for this admission?: Yes Plan: Resolved (6) Hypertension Qualifiers: Hypertension type: essential hypertension Qualified Code(s): I10 - Essential (primary) hypertension Is this a current diagnosis for this admission?: Yes Plan: Continue Lopressor and amlodipine (7) Hypothyroid Qualifiers: Hypothyroidism type: unspecified Qualified Code(s): E03.9 - Hypothyroidism , unspecified Is this a current diagnosis for this admission?: Yes Plan: Continue Synthroid (8) Ambulatory dysfunction Is this a current diagnosis for this admission?: Yes Plan: Continue physical therapy She will need to be discharged to a rehab facility - Time Time Spent with patient: 15-24 minutes - Inpatient Certification Medical Necessity: Need for Pain Control, Other
--- NOTE | 2017-02-18 13:05 | ST Inp Modified Barium Swallow ---
Medical Diagnosis - Medical Diagnoses Medical Diagnosis Description & ICD-10 Code(s): syncope, left wrist fracture - ICD-10 Tx Diagnosis Coding (1) Dysphagia, oropharyngeal ICD-10 Code(s): R13.12 - DYSPHAGIA, OROPHARYNGEAL PHASE (2) Dysphagia, pharyngeal ICD-10 Code(s): R13.13 - DYSPHAGIA, PHARYNGEAL PHASE (3) Left wrist fracture ICD-10 Code(s): S62.102A - FRACTURE OF UNSP CARPAL BONE, LEFT WRIST, INIT FOR CLOS FX (4) Syncope ICD-10 Code(s): R55 - SYNCOPE AND COLLAPSE ST Inpatient [facility] [place] - General Date: 02/18/17 Date of Onset: 02/14/17 - History History Obtained From: Other - EMR -: Medical - Per EMR: hyperlipidemia, hypertension, compensated CHF, diabetes type 2, GERD, arthritis, depression Patient initially admitted on 02/14/17 due to fall and subsequent wrist fracture. Nursing reports recent difficulties with thin liquids. Medications: Medications Reviewed Allergies: Refer to medical record - Subjective Current Nutritional Means: PO Current Symptoms: Coughing, other - weak cough, weak voice Pain: 0/5 - Objective Assessment: Upright, Left Lateral - Food Trials Food Trials Used: Thin liquids, Honey-thickened liquids, [place] thick liquids, Pureed, Soft solids The Patient: Required Assist - Assessment Labial Function: Impaired Lingual Function: Impaired Mandibular Function: Impaired Dentition: Partial Velo-Pharyngeal Function: Not assessed Laryngeal Function: Weak Cough, weak voicing, hoarse, breathy voice - Pharyngeal Stage Decreased Laryngeal Elevation: Yes - mildly Reduced Velo-Pharyngeal Closure: no Reduced Pressure Generation: Yes Reduced Tongue Base Retraction: Yes Pre-Swallowing Pooling in Valleculae: Mild Pre-Swallowing Pooling in Pyriforms: None Reduced Pharyngeal Peristalsis: Yes Multiple Swallows With: Effective - multiple swallows to clear, particularly for solids but no cueing from ST required Post Swallow Residuals in Valleculae: Mild - trace Post Swallow Residuals in Pyriforms: None - Esophageal Stage Cricophageal Function: Normal - Impression/Summary Laryngeal Penetration: Yes Tracheal Aspiration: yes, silent Productive Cough: No Effective Clearing: no Patient Presents With: Oral stage dysphagia, Pharyngeal stage dysph., Oral- Pharyngeal dysph., Severe Risk of Aspiration: Severe Risk of Nutritional Compromise: Severe - Recommendations Solid Diet Recommendations: Mechanical Soft, Chopped Meat Liquid Diet Recommendations: Thin Regular Diet: No Strict Aspitarion Precautions: Yes Dysphagia Therapy with SECOND HAND P[employer]ER MACHINE: Yes Recommended Techniques: Fully Upright During Meal, Small Bites and Sips Supervision: Constant, requires assistance Other Recommendations: Patient presents with severe dysphagia. Aspiration of thin and nectar thick liquids with weak, delayed cough noted only x1. Cough did not result in clearance of aspiration material from trachea. Aspiration largely silent. With honey thick liquids, penetration noted on only 1 of multiple swallows. Patient also presented with puree & soft solids. Liquid wash required for soft solids but no aspiration of mixed residuals. RECOMMENDATIONS: 1. Honey thick liquids by spoon only. 2. Mechanical soft chopped meats. 3. Small bites & sips. 4. Strict aspiration precautions. SECOND HAND P[employer]ER MACHINE contacted physician, Dr. Ang, who provided telephone order. - Time Total Time: 15 Total Timed Minutes: 0
[2017-02-18] MEDS: HYDROCODONE/ACETAMINOPHEN 7.5-325 MG TABLET PO PRN (13:36)
[2017-02-18 14:55] LABS: ABSOLUTE EOSINOPHILS # (AUTO) 0.3 10^3/uL (0.0-0.6); ABSOLUTE LYMPHOCYTES (AUTO) 1.5 10^3/uL (0.5-4.7); ABSOLUTE MONOCYTES (AUTO) 0.7 10^3/uL (0.1-1.4); BASOPHILS % (AUTO) 0.5 % (0-2); EOSINOPHILS % (AUTO) 3.3 % (0-6); HEMATOCRIT 37.2 % (36.0-47.0); HEMOGLOBIN 12.7 g/dL (12.0-15.5); HGB HCT DIFFERENCE 0.9; LYMPHOCYTES % (AUTO) 19.9 % (13-45); MEAN CORPUSCULAR HEMOGLOBIN 32.6 pg (27.0-33.4); MEAN CORPUSCULAR HGB CONC 34.1 g/dL (32.0-36.0); MEAN CORPUSCULAR VOLUME 96 fl (80-97); MONOCYTES % (AUTO) 9.4 % (3-13); RED BLOOD COUNT 3.89 10^6/uL (3.72-5.28); RED CELL DISTRIBUTION WIDTH 14.6 % (11.5-14.0); SEGMENTED NEUTROPHILS % (AUTO) 66.9 % (42-78); WHITE BLOOD COUNT 7.5 10^3/uL (4.0-10.5)
[2017-02-19 05:26] LABS: ANION GAP 6 (5-19); BLOOD UREA NITROGEN 18 mg/dL (7-20); CARBON DIOXIDE 32 mmol/L (22-30); CHLORIDE 102 mmol/L (98-107); CREATININE RESULT 0.95 mg/dL (0.52-1.25); GLUCOSE 112 mg/dL (75-110); POTASSIUM 3.8 mmol/L (3.6-5.0); SODIUM 139.7 mmol/L (137-145)
[2017-02-19] MEDS: LEVOTHYROXINE SODIUM 0.1 MG TABLET PO SCH (06:41)
[2017-02-19] MEDS: FAMOTIDINE 20 MG TABLET PO SCH ×2 (09:42→22:40)
[2017-02-19] MEDS: METOPROLOL TARTRATE 25 MG TABLET PO SCH ×2 (09:42→22:39)
[2017-02-19] MEDS: FLUOXETINE HCL 20 MG CAPSULE PO SCH (09:43)
[2017-02-19] MEDS: LEVETIRACETAM 500 MG TABLET PO SCH ×2 (09:43→22:40)
[2017-02-19] MEDS: FLUTICASONE NASAL SPRAY 50 MCG/SPRY 120 SPRAY/16 GM NASL SCH (09:44)
[2017-02-19] MEDS: AMLODIPINE BESYLATE 5 MG TABLET PO SCH (09:44)
[2017-02-19] MEDS: HYDROCODONE/ACETAMINOPHEN 7.5-325 MG TABLET PO PRN (09:46)
--- NOTE | 2017-02-19 09:51 | PDOC PROGRESS REPORT ---
Subjective Progress Note for:: 02/19/17 Subjective:: Patient much more alert this morning Physical Exam Vital Signs: Temp Pulse Resp BP Pulse Ox 36.4 C 54 L 15 150/59 H 92 02/19/17 07:14 02/19/17 07:14 02/19/17 07:14 02/19/17 07:14 02/19/17 07:14 Intake & Output 02/18/17 02/19/17 02/20/17 06:59 06:59 06:59 Intake Total 780 560 Output Total 0 Balance 780 560 Weight 71.4 kg 69.9 kg General appearance: PRESENT: no acute distress Head exam: PRESENT: normocephalic Extremities exam: PRESENT: other - Left upper extremity immobilized in a posterior plaster splint. There is some swelling of the digits. Passive range of motion is relatively pain-free. There is brisk capillary refill. Sensory examination is intact to light touch. Results Laboratory Results: 02/18/17 14:46 02/19/17 04:25 02/16/17 02/18/17 02/19/17 04:28 14:46 04:25 WBC 7.5 RBC 3.89 Hgb 12.7 Hct 37.2 MCV 96 MCH 32.6 MCHC 34.1 RDW 14.6 H Plt Count 162 Seg Neutrophils % 66.9 Lymphocytes % 19.9 Monocytes % 9.4 Eosinophils % 3.3 Basophils % 0.5 Absolute Neutrophils 5.0 Absolute Lymphocytes 1.5 Absolute Monocytes 0.7 Absolute Eosinophils 0.3 Absolute Basophils 0.0 Sodium 139.7 Potassium 3.8 Chloride 102 Carbon Dioxide 32 H Anion Gap 6 BUN 18 Creatinine 0.95 Est GFR ( Amer) > 60 Est GFR (Non-Af Amer) 56 L Glucose 112 H Calcium 10.0 Vitamin B1 146.6 Impressions: Hip/Pelvis X-Ray 02/14/17 11:40 IMPRESSION: NO RADIOGRAPHIC EVIDENCE OF ACUTE INJURY. Acute Abdomen Series 02/14/17 11:42 IMPRESSION: NO RADIOGRAPHIC EVIDENCE FOR ACUTE ABDOMINAL DISEASE. Head CT 02/14/17 11:42 IMPRESSION: CHRONIC CHANGES OF ATROPHY AND MICROVASCULAR ISCHEMIA. NO ACUTE PROCESS. EVIDENCE OF ACUTE STROKE: NO. Cervical Spine CT 02/14/17 14:51 IMPRESSION: CHRONIC DEGENERATIVE CHANGES. NO ACUTE FINDINGS. Lumbar Spine CT 02/14/17 14:51 IMPRESSION: No fracture identified. Thoracic Spine CT 02/14/17 14:51 IMPRESSION: No acute findings. Carotid Doppler Study 02/15/17 00:00 IMPRESSION: NO HEMODYNAMICALLY SIGNIFICANT STENOSIS. Head MRI 02/15/17 09:00 IMPRESSION: ATROPHY AND CHRONIC MICRO-VASCULAR ISCHEMIC CHANGES. OTHERWISE UNREMARKABLE MRI OF THE BRAIN WITHOUT AND WITH INTRAVENOUS GADOLINIUM CONTRAST. EVIDENCE OF ACUTE STROKE: NO. Fluoroscopy 02/16/17 00:00 IMPRESSION: Please see combined report for performance of procedure and radiologic supervision and interpretation. Wrist X-Ray 02/16/17 00:00 IMPRESSION: IMAGE(S) OBTAINED DURING PROCEDURE. Status: Imported from PACS Assessment & Plan - Diagnosis (1) Left wrist fracture Is this a current diagnosis for this admission?: Yes Plan: Patient to begin to work on both active and passive range of motion of the digits of the left upper extremity - Time Time Spent with patient: 15-24 minutes Anticipated discharge: SNF Within: when bed available
--- NOTE | 2017-02-19 13:36 | PDOC PROGRESS REPORT ---
Subjective Progress Note for:: 02/19/17 Subjective:: Patient is an 81-year-old woman who was brought 02/14/2017 after she was found down in her house by EMS. She was found covered in stools and urine and unknown how long she was down. She lives by herself and she was last seen by family members 3 days prior to admission per report. On presentation she was found to have a left wrist fracture and had a negative CAT scan of the brain. She did have an MRI brain this admission with chronic changes and no acute findings. She did sustain left arm fracture, she was seen and evaluated by ortho and she was taken to the OR on February 16, 2017 and she did have a closed with reduction with a splint application done. She has been working with PT. Her patient status changed to inpatient and she has been referred to case management for debilitation on discharge. Seen and examined this am and her headache has resolved. Her pain is better controlled and she was seen elevating the L arm. Physical Exam Vital Signs: Temp Pulse Resp BP Pulse Ox 97.8 F 53 L 17 144/72 H 97 02/19/17 12:04 02/19/17 12:04 02/19/17 12:04 02/19/17 12:04 02/19/17 12:04 Intake & Output 02/18/17 02/19/17 02/20/17 06:59 06:59 06:59 Intake Total 780 560 118 Output Total 0 Balance 780 560 118 Weight 71.4 kg 69.9 kg General appearance: PRESENT: no acute distress, other - Pleasant elderly woman Head exam: PRESENT: atraumatic, normocephalic Eye exam: PRESENT: EOMI Mouth exam: PRESENT: moist, neck supple Neck exam: PRESENT: full ROM. ABSENT: JVD Respiratory exam: PRESENT: clear to auscultation odalis, symmetrical, unlabored. ABSENT: accessory muscle use, retraction Cardiovascular exam: PRESENT: bradycardia, RRR, +S1, +S2 GI/Abdominal exam: PRESENT: normal bowel sounds, soft. ABSENT: distended, tenderness Rectal exam: PRESENT: deferred Extremities exam: PRESENT: other. ABSENT: pedal edema Neurological exam: PRESENT: alert, awake, oriented to person Psychiatric exam: PRESENT: appropriate affect, normal mood Results Laboratory Results: 02/18/17 14:46 02/19/17 04:25 02/18/17 02/19/17 14:46 04:25 WBC 7.5 RBC 3.89 Hgb 12.7 Hct 37.2 MCV 96 MCH 32.6 MCHC 34.1 RDW 14.6 H Plt Count 162 Seg Neutrophils % 66.9 Lymphocytes % 19.9 Monocytes % 9.4 Eosinophils % 3.3 Basophils % 0.5 Absolute Neutrophils 5.0 Absolute Lymphocytes 1.5 Absolute Monocytes 0.7 Absolute Eosinophils 0.3 Absolute Basophils 0.0 Sodium 139.7 Potassium 3.8 Chloride 102 Carbon Dioxide 32 H Anion Gap 6 BUN 18 Creatinine 0.95 Est GFR ( Amer) > 60 Est GFR (Non-Af Amer) 56 L Glucose 112 H Calcium 10.0 Impressions: Hip/Pelvis X-Ray 02/14/17 11:40 IMPRESSION: NO RADIOGRAPHIC EVIDENCE OF ACUTE INJURY. Acute Abdomen Series 02/14/17 11:42 IMPRESSION: NO RADIOGRAPHIC EVIDENCE FOR ACUTE ABDOMINAL DISEASE. Head CT 02/14/17 11:42 IMPRESSION: CHRONIC CHANGES OF ATROPHY AND MICROVASCULAR ISCHEMIA. NO ACUTE PROCESS. EVIDENCE OF ACUTE STROKE: NO. Cervical Spine CT 02/14/17 14:51 IMPRESSION: CHRONIC DEGENERATIVE CHANGES. NO ACUTE FINDINGS. Lumbar Spine CT 02/14/17 14:51 IMPRESSION: No fracture identified. Thoracic Spine CT 02/14/17 14:51 IMPRESSION: No acute findings. Carotid Doppler Study 02/15/17 00:00 IMPRESSION: NO HEMODYNAMICALLY SIGNIFICANT STENOSIS. Head MRI 02/15/17 09:00 IMPRESSION: ATROPHY AND CHRONIC MICRO-VASCULAR ISCHEMIC CHANGES. OTHERWISE UNREMARKABLE MRI OF THE BRAIN WITHOUT AND WITH INTRAVENOUS GADOLINIUM CONTRAST. EVIDENCE OF ACUTE STROKE: NO. Fluoroscopy 02/16/17 00:00 IMPRESSION: Please see combined report for performance of procedure and radiologic supervision and interpretation. Wrist X-Ray 02/16/17 00:00 IMPRESSION: IMAGE(S) OBTAINED DURING PROCEDURE. Assessment & Plan - Diagnosis (1) Left wrist fracture Is this a current diagnosis for this admission?: Yes Plan: Status post closed reduction with splint application on February 16, 2017 Continue physical therapy and pain control Ortho on board (2) Syncope Qualifiers: Syncope type: unspecified Qualified Code(s): R55 - Syncope and collapse Is this a current diagnosis for this admission?: Yes Plan: Echocardiogram this admission with borderline concentric LVH and LV ejection fracture within normal Mild to moderate diastolic dysfunction and no definite regional wall motion abnormalities MRI brain with chronic changes and without acute findings Continue current management Plan for rehabilitation (3) Global amnesia Is this a current diagnosis for this admission?: Yes Plan: Started on Keppra this admission for concern for subclinical seizures She will need to be followed by neurology on discharge for further evaluation (4) CKD (chronic kidney disease), stage III Is this a current diagnosis for this admission?: Yes Plan: Renal function stable Renally dose all medication (5) Hypertension Qualifiers: Hypertension type: essential hypertension Qualified Code(s): I10 - Essential (primary) hypertension Is this a current diagnosis for this admission?: Yes Plan: Continue Lopressor and amlodipine (6) Hypothyroid Qualifiers: Hypothyroidism type: unspecified Qualified Code(s): E03.9 - Hypothyroidism , unspecified Is this a current diagnosis for this admission?: Yes Plan: Continue Synthroid (7) Ambulatory dysfunction Is this a current diagnosis for this admission?: Yes Plan: Continue physical therapy She will need to be discharged to a rehab facility - Time Time Spent with patient: 15-24 minutes Within: when bed available
[2017-02-20] MEDS: LEVOTHYROXINE SODIUM 0.1 MG TABLET PO SCH (06:42)
[2017-02-20] MEDS: METOPROLOL TARTRATE 25 MG TABLET PO SCH ×2 (10:59→21:41)
[2017-02-20] MEDS: AMLODIPINE BESYLATE 5 MG TABLET PO SCH (10:59)
[2017-02-20] MEDS: LEVETIRACETAM 500 MG TABLET PO SCH ×2 (10:59→21:41)
[2017-02-20] MEDS: FAMOTIDINE 20 MG TABLET PO SCH ×2 (11:00→21:41)
[2017-02-20] MEDS: FLUOXETINE HCL 20 MG CAPSULE PO SCH (11:00)
[2017-02-20] MEDS: FLUTICASONE NASAL SPRAY 50 MCG/SPRY 120 SPRAY/16 GM NASL SCH (11:00)
--- NOTE | 2017-02-20 12:55 | PDOC PROGRESS REPORT ---
Subjective Subjective:: Patient is an 81-year-old woman who was brought 02/14/2017 after she was found down in her house by EMS. She was found covered in stools and urine and unknown how long she was down. She lives by herself and she was last seen by family members 3 days prior to admission per report. On presentation she was found to have a left wrist fracture and had a negative CAT scan of the brain. She did have an MRI brain this admission with chronic changes and no acute findings. She did sustain left arm fracture, she was seen and evaluated by ortho and she was taken to the OR on February 16, 2017 and she did have a closed with reduction with a splint application done. She has been working with PT. She was also seen and evaluated by speech therapy and she had a barium swallow done this admission with evidence of aspiration. Her diet was changed to mechanical diet and to be only on honey thick liquids. Her patient status changed to inpatient and she has been referred to case management for debilitation on discharge. Seen and examined this am and no acute events overnight reported. She had no new complaints during rounds. Physical Exam Vital Signs: Temp Pulse Resp BP Pulse Ox 97.8 F 56 L 18 141/65 H 94 02/20/17 11:40 02/20/17 11:40 02/20/17 11:40 02/20/17 11:40 02/20/17 11:40 Intake & Output 02/19/17 02/20/17 02/21/17 06:59 06:59 06:59 Intake Total 560 493 118 Output Total 350 Balance 560 143 118 Weight 69.9 kg 69.3 kg General appearance: PRESENT: no acute distress, other - Pleasant elderly woman Head exam: PRESENT: atraumatic, normocephalic Eye exam: PRESENT: EOMI Mouth exam: PRESENT: moist, neck supple Neck exam: PRESENT: full ROM. ABSENT: JVD Respiratory exam: PRESENT: clear to auscultation odalis, symmetrical, unlabored. ABSENT: accessory muscle use Cardiovascular exam: PRESENT: RRR, +S1, +S2 GI/Abdominal exam: PRESENT: normal bowel sounds, soft. ABSENT: distended, tenderness Rectal exam: PRESENT: deferred Extremities exam: PRESENT: other - L arm splint in place. ABSENT: pedal edema Neurological exam: PRESENT: alert, awake, oriented to person, oriented to place Psychiatric exam: PRESENT: appropriate affect, normal mood Skin exam: PRESENT: dry, warm Results Laboratory Results: 02/18/17 14:46 02/19/17 04:25 Impressions: Hip/Pelvis X-Ray 02/14/17 11:40 IMPRESSION: NO RADIOGRAPHIC EVIDENCE OF ACUTE INJURY. Acute Abdomen Series 02/14/17 11:42 IMPRESSION: NO RADIOGRAPHIC EVIDENCE FOR ACUTE ABDOMINAL DISEASE. Head CT 02/14/17 11:42 IMPRESSION: CHRONIC CHANGES OF ATROPHY AND MICROVASCULAR ISCHEMIA. NO ACUTE PROCESS. EVIDENCE OF ACUTE STROKE: NO. Cervical Spine CT 02/14/17 14:51 IMPRESSION: CHRONIC DEGENERATIVE CHANGES. NO ACUTE FINDINGS. Lumbar Spine CT 02/14/17 14:51 IMPRESSION: No fracture identified. Thoracic Spine CT 02/14/17 14:51 IMPRESSION: No acute findings. Carotid Doppler Study 02/15/17 00:00 IMPRESSION: NO HEMODYNAMICALLY SIGNIFICANT STENOSIS. Head MRI 02/15/17 09:00 IMPRESSION: ATROPHY AND CHRONIC MICRO-VASCULAR ISCHEMIC CHANGES. OTHERWISE UNREMARKABLE MRI OF THE BRAIN WITHOUT AND WITH INTRAVENOUS GADOLINIUM CONTRAST. EVIDENCE OF ACUTE STROKE: NO. Fluoroscopy 02/16/17 00:00 IMPRESSION: Please see combined report for performance of procedure and radiologic supervision and interpretation. Wrist X-Ray 02/16/17 00:00 IMPRESSION: IMAGE(S) OBTAINED DURING PROCEDURE. Assessment & Plan - Diagnosis (1) Left wrist fracture Is this a current diagnosis for this admission?: Yes Plan: Status post closed reduction with splint application on February 16, 2017 Continue physical therapy and pain control Ortho on board (2) Syncope Qualifiers: Syncope type: unspecified Qualified Code(s): R55 - Syncope and collapse Is this a current diagnosis for this admission?: Yes Plan: Echocardiogram this admission with borderline concentric LVH and LV ejection fracture within normal Mild to moderate diastolic dysfunction and no definite regional wall motion abnormalities MRI brain with chronic changes and without acute findings Plan for rehabilitation (3) Global amnesia Is this a current diagnosis for this admission?: Yes Plan: Started on Keppra this admission for concern for subclinical seizures She will need to be followed by neurology on discharge for further evaluation (4) CKD (chronic kidney disease), stage III Is this a current diagnosis for this admission?: Yes Plan: Renal function stable Renally dose all medication (5) Hypertension Qualifiers: Hypertension type: essential hypertension Qualified Code(s): I10 - Essential (primary) hypertension Is this a current diagnosis for this admission?: Yes Plan: Continue Lopressor and amlodipine (6) Hypothyroid Qualifiers: Hypothyroidism type: unspecified Qualified Code(s): E03.9 - Hypothyroidism , unspecified Is this a current diagnosis for this admission?: Yes Plan: Continue Synthroid (7) Dysphagia, pharyngeal Is this a current diagnosis for this admission?: Yes Plan: She was seen and evaluated by speech therapy Had barium swallow with evidence of aspiration On mechanical diet and honey thick liquid (8) Ambulatory dysfunction Is this a current diagnosis for this admission?: Yes Plan: Continue physical therapy She will need to be discharged to a rehab facility - Time Time Spent with patient: 15-24 minutes Within: when bed available
[2017-02-21] MEDS: HYDROCODONE/ACETAMINOPHEN 7.5-325 MG TABLET PO PRN (01:04)
[2017-02-21] MEDS: LEVOTHYROXINE SODIUM 0.1 MG TABLET PO SCH (05:18)
[2017-02-21] MEDS ORDERED: AMLODIPINE BESYLATE 5 MG TABLET PO SCH (07:19)
[2017-02-21] MEDS: FLUOXETINE HCL 20 MG CAPSULE PO SCH (09:03)
[2017-02-21] MEDS: LEVETIRACETAM 500 MG TABLET PO SCH (09:03)
[2017-02-21] MEDS: FAMOTIDINE 20 MG TABLET PO SCH (09:04)
[2017-02-21] MEDS: FLUTICASONE NASAL SPRAY 50 MCG/SPRY 120 SPRAY/16 GM NASL SCH (09:06)
[2017-02-21] MEDS ORDERED: METOPROLOL SUCCINATE 25 MG TAB.SR.24H PO SCH (10:00)
--- NOTE | 2017-02-21 12:05 | PDOC PROGRESS REPORT ---
Subjective Progress Note for:: 02/21/17 Subjective:: Patient is an 81-year-old woman who was brought 02/14/2017 after she was found down in her house by EMS. She was found covered in stools and urine and unknown how long she was down. She lives by herself and she was last seen by family members 3 days prior to admission per report. On presentation she was found to have a left wrist fracture and had a negative CAT scan of the brain. She did have an MRI brain this admission with chronic changes and no acute findings. She did sustain left arm fracture, she was seen and evaluated by ortho and she was taken to the OR on February 16, 2017 and she did have a closed with reduction with a splint application done. She has been working with PT. She was also seen and evaluated by speech therapy and she had a barium swallow done this admission with evidence of aspiration. Her diet was changed to mechanical diet and to be only on honey thick liquids. Her patient status changed to inpatient and she has been referred to case management for rehabilitation on discharge. Seen and examined this am and no acute events overnight reported. No reports of pain. Physical Exam Vital Signs: Temp Pulse Resp BP Pulse Ox 97.9 F 53 L 16 146/79 H 92 02/21/17 07:47 02/21/17 07:47 02/21/17 07:47 02/21/17 07:47 02/21/17 07:47 Intake & Output 02/20/17 02/21/17 02/22/17 06:59 06:59 06:59 Intake Total 493 370 Output Total 350 Balance 143 370 Weight 69.3 kg 69.5 kg General appearance: PRESENT: no acute distress, other - Pleasant elderly woman Head exam: PRESENT: atraumatic, normocephalic Eye exam: PRESENT: EOMI Mouth exam: PRESENT: dry mucosa, neck supple Neck exam: PRESENT: full ROM. ABSENT: JVD Respiratory exam: PRESENT: clear to auscultation odalis, symmetrical, unlabored. ABSENT: accessory muscle use Cardiovascular exam: PRESENT: bradycardia, +S1, +S2 GI/Abdominal exam: PRESENT: normal bowel sounds, soft. ABSENT: distended, tenderness Rectal exam: PRESENT: deferred Extremities exam: PRESENT: other - L arm spling with improving swollen fingers. ABSENT: pedal edema Results Laboratory Results: 02/18/17 14:46 02/19/17 04:25 Impressions: Hip/Pelvis X-Ray 02/14/17 11:40 IMPRESSION: NO RADIOGRAPHIC EVIDENCE OF ACUTE INJURY. Acute Abdomen Series 02/14/17 11:42 IMPRESSION: NO RADIOGRAPHIC EVIDENCE FOR ACUTE ABDOMINAL DISEASE. Head CT 02/14/17 11:42 IMPRESSION: CHRONIC CHANGES OF ATROPHY AND MICROVASCULAR ISCHEMIA. NO ACUTE PROCESS. EVIDENCE OF ACUTE STROKE: NO. Cervical Spine CT 02/14/17 14:51 IMPRESSION: CHRONIC DEGENERATIVE CHANGES. NO ACUTE FINDINGS. Lumbar Spine CT 02/14/17 14:51 IMPRESSION: No fracture identified. Thoracic Spine CT 02/14/17 14:51 IMPRESSION: No acute findings. Carotid Doppler Study 02/15/17 00:00 IMPRESSION: NO HEMODYNAMICALLY SIGNIFICANT STENOSIS. Head MRI 02/15/17 09:00 IMPRESSION: ATROPHY AND CHRONIC MICRO-VASCULAR ISCHEMIC CHANGES. OTHERWISE UNREMARKABLE MRI OF THE BRAIN WITHOUT AND WITH INTRAVENOUS GADOLINIUM CONTRAST. EVIDENCE OF ACUTE STROKE: NO. Fluoroscopy 02/16/17 00:00 IMPRESSION: Please see combined report for performance of procedure and radiologic supervision and interpretation. Wrist X-Ray 02/16/17 00:00 IMPRESSION: IMAGE(S) OBTAINED DURING PROCEDURE. Assessment & Plan - Diagnosis (1) Left wrist fracture Is this a current diagnosis for this admission?: Yes Plan: Status post closed reduction with splint application on February 16, 2017 Continue physical therapy and pain control Awaiting rehabilitation (2) Syncope Qualifiers: Syncope type: unspecified Qualified Code(s): R55 - Syncope and collapse Is this a current diagnosis for this admission?: Yes Plan: Echocardiogram this admission with borderline concentric LVH and LV ejection fracture within normal Mild to moderate diastolic dysfunction and no definite regional wall motion abnormalities MRI brain with chronic changes and without acute findings Plan for rehabilitation (3) Global amnesia Is this a current diagnosis for this admission?: Yes Plan: Started on Keppra this admission for concern for subclinical seizures She will need to be followed by neurology on discharge for further evaluation (4) CKD (chronic kidney disease), stage III Is this a current diagnosis for this admission?: Yes Plan: Renal function stable Renally dose all medication BMP in am (5) Hypertension Qualifiers: Hypertension type: essential hypertension Qualified Code(s): I10 - Essential (primary) hypertension Is this a current diagnosis for this admission?: Yes Plan: On Lopressor and amlodipine Lopressor has been changed and decreased- Toprol XL 12.5 mg for concern for bradycardia Amlodipine increased from 5 mg PO daily to 7.5 mg PO daily Follow up for further management (6) Hypothyroid Qualifiers: Hypothyroidism type: unspecified Qualified Code(s): E03.9 - Hypothyroidism , unspecified Is this a current diagnosis for this admission?: Yes Plan: Continue Synthroid (7) Dysphagia, pharyngeal Is this a current diagnosis for this admission?: Yes Plan: She was seen and evaluated by speech therapy Had barium swallow with evidence of aspiration On mechanical diet and honey thick liquid (8) Ambulatory dysfunction Is this a current diagnosis for this admission?: Yes Plan: Continue physical therapy She will need to be discharged to a rehab facility Awaiting for bed placement - Time Time Spent with patient: 15-24 minutes Within: when bed available
--- NOTE | 2017-02-21 14:12 | PDOC DISCHARGE SUMMARY ---
General - Admit/Disc Date/PCP Admission Date/Primary Care Provider: 02/14/17 17:16 Discharge Date: 02/22/17 - Discharge Diagnosis (1) Left wrist fracture Is this a current diagnosis for this admission?: Yes (2) Syncope Is this a current diagnosis for this admission?: Yes (3) Global amnesia Is this a current diagnosis for this admission?: Yes (4) CKD (chronic kidney disease), stage III Is this a current diagnosis for this admission?: Yes (5) Hypertension Is this a current diagnosis for this admission?: Yes (6) Hypothyroid Is this a current diagnosis for this admission?: Yes (7) Dysphagia, pharyngeal Is this a current diagnosis for this admission?: Yes (8) Ambulatory dysfunction Is this a current diagnosis for this admission?: Yes - Additional Information Resuscitation Status: Full Code Home Medications: Allopurinol [Zyloprim 300 mg Tablet] 300 mg PO DAILY 02/15/17 Cyanocobalamin (Vitamin B-12) [Vitamin B-12 1000 mcg Tablet] 2,000 mcg PO DAILY 02/15/17 Docusate Sodium [Doc-Q-Lace] 100 mg PO DAILY 02/15/17 Ferrous Sulfate [Feosol 325 mg Tablet] 325 mg PO DAILY 02/15/17 Fluoxetine HCl [Prozac 20 mg Capsule] 20 mg PO DAILY 02/15/17 Fluticasone Propionate [Flonase Nasal Tarkio 50 Mcg/Tarkio 16 gm] 2 spray NASL DAILY 02/15/17 Levothyroxine Sodium [Synthroid] 200 mcg PO DAILY 02/15/17 Mesalamine [Lialda] 2.4 gm PO WSUPPER 02/15/17 Metoprolol Tartrate [Lopressor 25 mg Tablet] 25 mg PO Q12 02/15/17 Multivitamin [Multiple Vitamins] 1 tab PO DAILY 02/15/17 Omeprazole 40 mg PO BID 02/15/17 Ranitidine HCl [Zantac] 300 mg PO Q12 02/15/17 Solifenacin Succinate [Vesicare] 10 mg PO DAILY 02/15/17 History of Present Illness History of Present Illness: Dictated on February 14, 2017 by admitting doctor PRIYA Shirley ÓSCAR is a 81 year old female who was found down in her house by EMS. Patient cannot remember what happened. Patient does have some family at the bedside. She was last seen on Tuesday in her normal state. Patient was at the [facility] on Tuesday. Patient states she was not feeling well and was followed back home to her residence. No one her from the patient since then. The senior status became concerned as patient was not answering her phone. When EMS into the home patient was down and covered in her own stools and urine. It is uncertain as to how long patient has been down. Patient does not remember exactly what happened. And does not even remember getting into the home. Patient denies any seizure history. Patient denies any previous history of syncope. In the ED patient was found to have a fracture of the left arm. Patient's electrolytes and CBC were essentially normal. Patient did have ketones in her urine. CT scan done of the head was negative for any findings. Hospitalist service was called to observe the patient and evaluate patient for any further findings. Dr. Rubin orthopedics was consulted for patient left arm fracture. Hospital Course Hospital Course: Patient is an 81-year-old woman who was brought 02/14/2017 after she was found down in her house by EMS. She was found covered in stools and urine and unknown how long she was down. She lives by herself and she was last seen by family members 3 days prior to admission per report. On presentation she was found to have a left wrist fracture and had a negative CAT scan of the brain. She did have an MRI brain this admission with chronic changes and no acute findings. She was started on prophylactic Keppra for subclinical seizures this admission and she will benefit from neurology evaluation on discharge. She had an echocardiogram with borderline concentric LVH and LV ejection fracture within normal mild to moderate diastolic dysfunction and no definite regional wall motion abnormalities. She did sustain left arm fracture, she was seen and evaluated by ortho and she was taken to the OR on February 16, 2017 and she did have a closed with reduction with a splint application done. She has been working with PT. She was also seen and evaluated by speech therapy and she had a barium swallow done this admission with evidence of aspiration. Her diet was changed to mechanical diet and to be only on honey thick liquids. Her patient status changed to inpatient and she has been referred to case management for rehabilitation on discharge. She was seen and examined this am and no acute events overnight reported. No reports of pain. She is to be discharged to a facility rehabilitation. Physical Exam Vital Signs: Temp Pulse Resp BP Pulse Ox 97.8 F 56 L 20 132/74 H 95 02/21/17 11:42 02/21/17 11:42 02/21/17 11:42 02/21/17 11:42 02/21/17 11:42 Intake & Output 02/20/17 02/21/17 02/22/17 06:59 06:59 06:59 Intake Total 493 370 Output Total 350 Balance 143 370 Weight 69.3 kg 69.5 kg General appearance: PRESENT: no acute distress, other - Pleasant elderly woman Head exam: PRESENT: atraumatic, normocephalic Eye exam: PRESENT: conjunctiva pink, EOMI Mouth exam: PRESENT: dry mucosa, neck supple Neck exam: PRESENT: full ROM. ABSENT: JVD Respiratory exam: PRESENT: clear to auscultation odalis, symmetrical, unlabored. ABSENT: accessory muscle use, retraction Cardiovascular exam: PRESENT: bradycardia, RRR, +S1, +S2 GI/Abdominal exam: PRESENT: normal bowel sounds, soft. ABSENT: distended, tenderness Rectal exam: PRESENT: deferred Extremities exam: PRESENT: other - L arm splint in place with improving moving fingers.. ABSENT: pedal edema Neurological exam: PRESENT: alert, awake, oriented to person Psychiatric exam: PRESENT: appropriate affect, normal mood Skin exam: PRESENT: dry, warm Results Laboratory Results: 02/18/17 14:46 02/19/17 04:25 Impressions: Hip/Pelvis X-Ray 02/14/17 11:40 IMPRESSION: NO RADIOGRAPHIC EVIDENCE OF ACUTE INJURY. Acute Abdomen Series 02/14/17 11:42 IMPRESSION: NO RADIOGRAPHIC EVIDENCE FOR ACUTE ABDOMINAL DISEASE. Head CT 02/14/17 11:42 IMPRESSION: CHRONIC CHANGES OF ATROPHY AND MICROVASCULAR ISCHEMIA. NO ACUTE PROCESS. EVIDENCE OF ACUTE STROKE: NO. Cervical Spine CT 02/14/17 14:51 IMPRESSION: CHRONIC DEGENERATIVE CHANGES. NO ACUTE FINDINGS. Lumbar Spine CT 02/14/17 14:51 IMPRESSION: No fracture identified. Thoracic Spine CT 02/14/17 14:51 IMPRESSION: No acute findings. Carotid Doppler Study 02/15/17 00:00 IMPRESSION: NO HEMODYNAMICALLY SIGNIFICANT STENOSIS. Head MRI 02/15/17 09:00 IMPRESSION: ATROPHY AND CHRONIC MICRO-VASCULAR ISCHEMIC CHANGES. OTHERWISE UNREMARKABLE MRI OF THE BRAIN WITHOUT AND WITH INTRAVENOUS GADOLINIUM CONTRAST. EVIDENCE OF ACUTE STROKE: NO. Fluoroscopy 02/16/17 00:00 IMPRESSION: Please see combined report for performance of procedure and radiologic supervision and interpretation. Wrist X-Ray 02/16/17 00:00 IMPRESSION: IMAGE(S) OBTAINED DURING PROCEDURE. Plan Time Spent: Greater than 30 Minutes
[2017-02-21 17:39] VITALS: BP 139/74
--- NOTE | 2017-02-23 11:57 | RADIOLOGY REPORT (SQ) ---
EXAM DESCRIPTION: RILEY SWALLOW COMPLETED DATE/TIME: 02/18/2017 12:57 pm REASON FOR STUDY: coughing with thin liquids D50.9 IRON DEFICIENCY ANEMIA, UNSPECIFIED COMPARISON: None. TECHNIQUE: Videofluoroscopic swallowing examination was performed in conjunction with speech patholo gy. Videofluoroscopic imaging was obtained and reviewed and these are the findings: RADIATION DOSE: Fluoro time 2.01 minutes 1 images saved to PACS. LIMITATIONS: None FINDINGS: The patient was brought into the fluoro room and placed upright on a modified barium swall ow chair. The patient was then given multiple consistencies mixed with barium to swallow under live fluoroscopic video guidance. According to the Speech Pathologist there was aspiration seen with thin and nectar thick consistencies. A single episode of laryngeal penetration was noted with tyson abraham. Please refer to the speech pathology report for further details. IMPRESSION: ASPIRATION SEEN WITH THIN AND NECTAR THICK CONSISTENCIES.PLEASE SEE SPEECH PATHOLOGIST Mike REYES FOR OTHER FINDINGS AND RECOMMENDATIONS. COMMENT: NONE Quality ID [id number]: Final reports for procedures using fluoroscopy that document radiation exposure karolyn anila, or exposure time and number of fluorographic images (if radiation exposure indices are not avail able) TECHNICAL DOCUMENTATION: JOB ID: [id number] [employer]- All Rights Reserved
== END 2017-02-21 17:46 | DRG 563 ==
LOC: ER 11:23 → EH 16:28 → INTOOBSV 16:28 → EH 16:32 → UNDOADMIN 16:32 → OBSVTOIN 17:16 → 3W 02-15 01:00
PROVIDERS: ADMIT Pediatrics; ATTEND Pediatrics
PROC: 0PSJXZZ Reposition Left Radius, External Approach (ICD-10-PCS; principal; 2017-02-16 14:00)
DX: S52.502A Unspecified fracture of the lower end of left radius, initial encounter for closed fracture (principal); W01.0XXA Fall on same level from slipping, tripping and stumbling without subsequent striking against object, initial encounter; R55 Syncope and collapse; G45.4 Transient global amnesia; I12.9 Hypertensive chronic kidney disease with stage 1 through stage 4 chronic kidney disease, or unspecified chronic kidney disease; N18.3 Chronic kidney disease, stage 3 (moderate); E03.9 Hypothyroidism, unspecified; R13.13 Dysphagia, pharyngeal phase; W19.XXXA Unspecified fall, initial encounter; Y92.019 Unspecified place in single-family (private) house as the place of occurrence of the external cause; Z60.2 Problems related to living alone; E11.22 Type 2 diabetes mellitus with diabetic chronic kidney disease; K21.9 Gastro-esophageal reflux disease without esophagitis; M19.90 Unspecified osteoarthritis, unspecified site; F32.9 Major depressive disorder, single episode, unspecified; F17.210 Nicotine dependence, cigarettes, uncomplicated; E86.0 Dehydration; E78.00 Pure hypercholesterolemia, unspecified; E83.52 Hypercalcemia; E66.9 Obesity, unspecified; Z68.25 Body mass index [BMI] 25.0-25.9, adult; Z90.49 Acquired absence of other specified parts of digestive tract; Z79.899 Other long term (current) drug therapy; Z88.6 Allergy status to analgesic agent; Z88.8 Allergy status to other drugs, medicaments and biological substances; Z91.81 History of falling
CPT/HCPCS: 01830; 36415; 51702; 70450; 70553; 72125; 72128; 72131; 74022; 74230; 80048; 80053; 80307; 81001; 82272; 82550; 82553; 82607; 82746; 82803; 82962; 83605; 83735; 84425; 84439; 84443; 84481; 84484; 85025; 85027; 87040; 87086; 93005; 93010; 93306; 93880; 96361; 96374; 99285; A9577; G0378; G8978-GP; G8979-GP; G8987-GO; G8988-GO; G8996-GN; G8997-GN; J2250; J2704; J3490; J7030; J7120

== ENCOUNTER 2017-12-09 18:08 | Emergency (ER) | payer MEDICARE, MEDICAID ==
[2017-12-09] MEDS ORDERED: NORMAL SALINE 1000 ML 500 ML IV PRN (18:56)
--- NOTE | 2017-12-09 18:58 | ER Document Report ---
ED Medical Screen (RME) - General Chief Complaint: Congestion Stated Complaint: CONGESTION Time Seen by Provider: 12/09/17 18:55 Notes: 82 years old female presents today general weakness, sinus pain postnasal drip cough on and off for the last few days. Usually walk with a walker when walking with walker now causing discomfort. TRAVEL OUTSIDE OF THE [place] IN LAST 30 DAYS: No - Related Data Allergies/Adverse Reactions: adhesive tape [Adhesive Tape] Allergy (Intermediate, Verified 12/09/17 18:11) SILVA SKIN meperidine HCl [From Demerol] Allergy (Intermediate, Verified 12/09/17 18:11) VOMITING furosemide Allergy (Verified 12/09/17 18:11) meperidine [From Demerol] Allergy (Verified 12/09/17 18:11) mesalamine [From Apriso] Allergy (Verified 12/09/17 18:11) ramipril Allergy (Verified 12/09/17 18:11) topiramate [From Topamax] Allergy (Verified 12/09/17 18:11) valsartan [From Diovan] Allergy (Verified 12/09/17 18:11) Past Medical History - Social History Chew tobacco use (# tins/day): No Frequency of alcohol use: None Drug Abuse: None - Past Medical History Cardiac Medical History: Reports: Hx Hypercholesterolemia, Hx Hypertension Endocrine Medical History: Reports: Hx Diabetes Mellitus Type 2 - diet controlled Renal/ Medical History: Denies: Hx Peritoneal Dialysis GI Medical History: Reports: Hx Gastroesophageal Reflux Disease Musculoskeltal Medical History: Reports Hx Arthritis Psychiatric Medical History: Reports: Hx Depression Past Surgical History: Reports: Hx Abdominal Surgery - SAHIL fundoplication, Hx Appendectomy, Hx Cholecystectomy, Hx Tonsillectomy - Immunizations Hx Diphtheria, Pertussis, Tetanus Vaccination: Yes History of Influenza Vaccine for 01/2017 - 06/2017 Season: Yes Influenza Administration Date for 01/2017 - 06/2017 Season: 01/25/17 Physical Exam - Vital signs Vitals: Temp Pulse Resp BP Pulse Ox 98.0 F 103 H 20 151/78 H 95 12/09/17 18:17 12/09/17 18:17 12/09/17 18:17 12/09/17 18:17 12/09/17 18:17 Course - Vital Signs Vital signs: Temp Pulse Resp BP Pulse Ox 98.0 F 103 H 20 151/78 H 95 12/09/17 18:17 12/09/17 18:17 12/09/17 18:17 12/09/17 18:17 12/09/17 18:17 Doctor's Discharge - Discharge Referrals: NUZHAT MARTINEZ, [Primary Care Provider] - Follow up as needed
--- NOTE | 2017-12-09 19:32 | RADIOLOGY REPORT (SQ) ---
EXAM DESCRIPTION: CHEST SINGLE VIEW COMPLETED DATE/TIME: 12/09/2017 7:17 pm REASON FOR STUDY: Cough COMPARISON: 04/23/2015 TECHNIQUE: Single frontal radiographic view of the chest acquired. NUMBER OF VIEWS: One view. LIMITATIONS: None. FINDINGS: LUNGS AND PLEURA: No pneumothorax. No consolidation or pleural effusion. MEDIASTINUM AND HILAR STRUCTURES: Stable. HEART AND VASCULAR STRUCTURES: Stable. BONES: No acute findings. HARDWARE: None in the chest. OTHER: No other significant finding. IMPRESSION: No consolidation. TECHNICAL DOCUMENTATION: JOB ID: [id number] 2010 [employer]- All Rights Reserved Reading location - IP/workstation name: [email or web address]
[2017-12-09] MEDS ORDERED: BENZONATATE 100 MG CAPSULE PO ONE (19:34)
[2017-12-09] MEDS ORDERED: OXYMETAZOLINE HCL 0.05% NASAL SPRAY 15 ML BOTTLE NASL ONE (19:34)
--- NOTE | 2017-12-09 19:44 | ER Document Report ---
ED General - General Chief Complaint: Congestion Stated Complaint: CONGESTION Time Seen by Provider: 12/09/17 18:55 Notes: Patient is an 82-year-old female who presents with approximately 2 weeks of bilateral sinus pressure, rhinorrhea, postnasal drip and a nonproductive cough. The patient reports that the symptoms have been unchanged since onset. She has not been eating to try to treat her symptoms. Nothing worsens her symptoms. She denies chest pain, shortness of breath, fever or constitutional symptoms. She has not seen her general doctor regarding today's concerns. She reports a history of similar symptoms in the past with viral upper respiratory infections. TRAVEL OUTSIDE OF THE [place] IN LAST 30 DAYS: No - Related Data Allergies/Adverse Reactions: adhesive tape [Adhesive Tape] Allergy (Intermediate, Verified 12/09/17 18:11) SILVA SKIN meperidine HCl [From Demerol] Allergy (Intermediate, Verified 12/09/17 18:11) VOMITING furosemide Allergy (Verified 12/09/17 18:11) meperidine [From Demerol] Allergy (Verified 12/09/17 18:11) mesalamine [From Apriso] Allergy (Verified 12/09/17 18:11) ramipril Allergy (Verified 12/09/17 18:11) topiramate [From Topamax] Allergy (Verified 12/09/17 18:11) valsartan [From Diovan] Allergy (Verified 12/09/17 18:11) Past Medical History - General Information source: Patient, Relative - Social History Smoking Status: Never Smoker Chew tobacco use (# tins/day): No Frequency of alcohol use: None Drug Abuse: None Lives with: Prison Family History: Reviewed & Not Pertinent Patient has suicidal ideation: No Patient has homicidal ideation: No - Past Medical History Cardiac Medical History: Reports: Hx Hypercholesterolemia, Hx Hypertension Endocrine Medical History: Reports: Hx Diabetes Mellitus Type 2 - diet controlled Renal/ Medical History: Denies: Hx Peritoneal Dialysis GI Medical History: Reports: Hx Gastroesophageal Reflux Disease Musculoskeletal Medical History: Reports Hx Arthritis Psychiatric Medical History: Reports: Hx Depression Past Surgical History: Reports: Hx Abdominal Surgery - SAHIL fundoplication, Hx Appendectomy, Hx Cholecystectomy, Hx Tonsillectomy - Immunizations Hx Diphtheria, Pertussis, Tetanus Vaccination: Yes Hx Pneumococcal Vaccination: 04/11/11 Review of Systems - Review of Systems Notes: Constitutional: Negative for fever. HENT: Positive for rhinorrhea, bilateral maxillary sinus pressure Eyes: Negative for visual changes. Cardiovascular: Negative for chest pain. Respiratory: Negative for shortness of breath. Positive for cough Gastrointestinal: Negative for abdominal pain, vomiting or diarrhea. Genitourinary: Negative for dysuria. Musculoskeletal: Negative for back pain. Skin: Negative for rash. Neurological: Negative for headaches, weakness or numbness. 10 point ROS negative except as marked above and in HPI. Physical Exam - Vital signs Vitals: Temp Pulse Resp BP Pulse Ox 98.0 F 103 H 20 151/78 H 95 12/09/17 18:17 12/09/17 18:17 12/09/17 18:17 12/09/17 18:17 12/09/17 18:17 Interpretation: Tachycardic - Resolved at the time of my assessment Notes: PHYSICAL EXAMINATION: GENERAL: Well-appearing, well-nourished and in no acute distress. HEAD: Atraumatic, normocephalic. EYES: Pupils equal round and reactive to light, extraocular movements intact, sclera anicteric, conjunctiva are normal. ENT: nares patent, oropharynx clear without exudates. Moist mucous membranes. NECK: Normal range of motion, supple without lymphadenopathy LUNGS: Breath sounds clear to auscultation bilaterally and equal. No wheezes rales or rhonchi. HEART: Regular rate and rhythm without murmurs ABDOMEN: Soft, nontender, normoactive bowel sounds. No guarding, no rebound. No masses appreciated. EXTREMITIES: Normal range of motion, no pitting or edema. No cyanosis. NEUROLOGICAL: No focal neurological deficits. Moves all extremities spontaneously and on command. PSYCH: Normal mood, normal affect. SKIN: Warm, Dry, normal turgor, no rashes or lesions noted. Course - Re-evaluation Re-evalutation: 12/09/17 19:47 Presentation is most consistent with a viral upper respiratory infection. Patient is overall well appearance, vitals within normal limits, well-hydrated. Patient denies any headache, neck pain, and has no evidence of meningismus on examination. Lungs are clear bilaterally. No evidence of respiratory distress. Based on clinical exam and history, I do not suspect an acute pneumonia, meningitis, strep pharyngitis, or an acute encephalitis. No laboratory testing is indicated at this time. Chest x-ray is clear. Will discharge patient with return precautions and followup recommendations. They are in agreement this plan have verbalized understanding return precautions. - Vital Signs Vital signs: Temp Pulse Resp BP Pulse Ox 99.2 F 76 14 141/73 H 96 12/09/17 20:14 12/09/17 20:14 12/09/17 20:14 12/09/17 20:14 12/09/17 20:14 - Diagnostic Test Radiology reviewed: Image reviewed, Reports reviewed Radiology results interpreted by me: 12/09/17 19:48 Chest x-ray: No acute infiltrate or pneumothorax Discharge - Discharge Clinical Impression: Nasal congestion, Postnasal drip, Persistent cough Condition: Good Disposition: HOME, SELF-CARE Additional Instructions: Your symptoms are most likely due to a viral infection it should resolve over the next 7-14 days. For nasal congestion: I would recommend that you get over- the-counter oxymetazoline also known is afrin. Use only per bottle instructions and be sure to never use this for more than 3 days if you can develop severe rebound congestion. You may also use tylenol or ibuprofen as needed for aches and thorat discomfort. Please be sure to drink plenty of fluids and get rest. Return to the emergency department he began having difficulty breathing, chest pain, persistent vomiting, or any other symptoms that are concerning to you. Your chest x-ray is normal today. Prescriptions: Benzonatate [Tessalon Perles 100 mg Capsule] 100 mg PO Q8HP PRN #40 capsule PRN Reason: Referrals: NUZHAT MARTINEZ DO [Primary Care Provider] - Follow up as needed
[2017-12-09 20:25] VITALS: BP 141/73
== END 2017-12-09 20:20 | disposition home or self-care (01) ==
LOC: ER 18:08
DX: R09.82 Postnasal drip (principal); R09.81 Nasal congestion; R05 Cough; R51 Headache; J34.89 Other specified disorders of nose and nasal sinuses; I10 Essential (primary) hypertension; E11.9 Type 2 diabetes mellitus without complications
CPT/HCPCS: 99283; 71045; A9270; J3490

== ENCOUNTER 2019-06-14 10:41 | Day surgery (SDC) | payer MEDICARE, MEDICAID ==
[2019-06-06 10:25] LABS: HEMATOCRIT 41.3 % (36.0-47.0); HEMOGLOBIN 14.2 g/dL (12.0-15.5); MEAN CORPUSCULAR HEMOGLOBIN 31.5 pg (27.0-33.4); MEAN CORPUSCULAR HGB CONC 34.5 g/dL (32.0-36.0); MEAN CORPUSCULAR VOLUME 91 fl (80-97); PLATELET COUNT 165 10^3/uL (150-450); RED BLOOD COUNT 4.52 10^6/uL (3.72-5.28); RED CELL DISTRIBUTION WIDTH 13.4 % (11.5-14.0); WHITE BLOOD COUNT 5.3 10^3/uL (4.0-10.5)
[2019-06-06 10:58] LABS: ANION GAP 8 (5-19); BLOOD UREA NITROGEN 19 mg/dL (7-20); CALCIUM 10.2 mg/dL (8.4-10.2); CARBON DIOXIDE 32 mmol/L (22-30); CHLORIDE 100 mmol/L (98-107); GLUCOSE 133 mg/dL (75-110)
--- NOTE | 2019-06-06 17:26 | EKG REPORT ---
SEVERITY:- ABNORMAL ECG - SINUS RHYTHM IVCD, CONSIDER ATYPICAL RBBB PROBABLE LEFT VENTRICULAR HYPERTROPHY : Confirmed by: Marie Grace MD 06-Jun-2019 17:25:36
[~2019-06-14 10:41] MED LIST: LACTATED RINGERS 1000 ML IV PRN; LIDOCAINE 0.5% INJ-PF (5 MG/ML) 50 ML SDV SUBCUT PRN
[2019-06-14] MEDS ORDERED: SUCCINYLCHOLINE CHLORIDE INJ 200 MG/10 ML VIAL ONE (10:43)
[2019-06-14 13:01] LABS: POTASSIUM 4.4 mmol/L (3.6-5.0)
[2019-06-14] MEDS ORDERED: LIDOCAINE 2%/EPINEPHRINE INJ 1.7 ML CARTRIDGE ONE (13:38)
[2019-06-14] MEDS ORDERED: BUPIVACAINE HCL 0.5%/EPI 1:200000 INJ 1.8 ML CARTRIDGE ONE (13:39)
[2019-06-14] MEDS ORDERED: FENTANYL CITRATE INJ/PF 100 MCG/2 ML AMPUL ONE (13:41)
[2019-06-14] MEDS ORDERED: PROPOFOL INJ 200 MG/20 ML VIAL IV ONE (13:42)
[2019-06-14] MEDS ORDERED: DEXAMETHASONE SOD PHOSPHATE INJ 4 MG/1 ML VIAL ONE (13:42)
[2019-06-14] MEDS ORDERED: MIDAZOLAM 2 MG/2 ML INJ ONE (13:42)
[2019-06-14] MEDS ORDERED: ONDANSETRON HCL INJ/PF 4 MG/2 ML SDV ONE (13:42)
[2019-06-14] MEDS ORDERED: OXYCODONE-ACETAMINOPHEN 5-325 MG TABLET PO PRN ×2 (14:15)
[2019-06-14] MEDS ORDERED: MORPHINE SULFATE 10 MG/ML INJ IV PRN (14:15)
[2019-06-14] MEDS ORDERED: FENTANYL CITRATE INJ/PF 100 MCG/2 ML AMPUL IV PRN ×3 (14:15)
[2019-06-14] MEDS ORDERED: ONDANSETRON HCL INJ/PF 4 MG/2 ML SDV IV PRN (14:15)
[2019-06-14] MEDS ORDERED: PROMETHAZINE HCL INJ 25 MG/1 ML VIAL IV PRN ×2 (14:15)
[2019-06-14] MEDS ORDERED: DIPHENHYDRAMINE HCL 50 MG/ML VIAL IV PRN (14:15)
--- NOTE | 2019-06-14 14:37 | Operative Report ---
Operative Report DATE OF SURGERY: 06/14/19 PREOPERATIVE DIAGNOSIS: Dental caries, impacted wisdom tooth #16 POSTOPERATIVE DIAGNOSIS: Same OPERATION: Surgical removal of teeth numbers 2, 3, 6, 7, 8, 9, 10, 13, 14, 15 and 16 with alveoloplasties of the upper right and upper left quadrants SURGEON: JUAN WELLER ANESTHESIA: GA TISSUE REMOVED OR ALTERED: Teeth and bone which were discarded COMPLICATIONS: None ESTIMATED BLOOD LOSS: 15 mL INTRAOPERATIVE FINDINGS: Nonrestorable teeth due to gross caries and impacted wisdom tooth #16 PROCEDURE: The patient was brought into operating room #2 and placed on the operating room table in supine position. General anesthesia was induced via a peripheral IV and continued utilizing endotracheal intubation. The patient was then prepped and draped in the usual fashion for an intraoral procedure. A total of 2.5 carpules of 2% Lidocaine with 1:100K Epi and 1 carpules of 0.5% Marcaine with 1:200K Epi were delivered to the planned surgical sites via both infiltration and nerve block. The oral cavity and oropharynx were suctioned and a moistened oropha ryngeal throat pack was placed. A bite block was used throughout the procedure. Full thickness mucoperisteal flaps were elevated. Ostectomy was completed as needed. Teeth were sectioned as needed. Teeth were delivered with elevators and forceps. Alveoloplasties were completed using rongeurs and bone files. All sites debrided and irrigated. No sinus exposure noted. Wounds reapproximated and sutured with 4-0 chromic gut. The oral cavity was suctioned and found to be free of debris. The throat pack was removed. The oropharynx was suctioned. Gauze packs were placed bilaterally to aid in continued hemastasis. The patient was awakened from general anesthesia, extubated in the operating room and taken to recovery in spontaneous breathing fashion.
[2019-06-14 17:23] VITALS: BP 165/88
== END 2019-06-14 16:55 | disposition home or self-care (01) ==
LOC: OROUT 10:41
PROVIDERS: ATTEND Dentist Oral and Maxillofacial Surgery
DX: K02.9 Dental caries, unspecified (principal); K08.89 Other specified disorders of teeth and supporting structures; K01.1 Impacted teeth; I25.10 Atherosclerotic heart disease of native coronary artery without angina pectoris; E11.9 Type 2 diabetes mellitus without complications; I10 Essential (primary) hypertension; E03.9 Hypothyroidism, unspecified; Z88.0 Allergy status to penicillin; Z79.899 Other long term (current) drug therapy
CPT/HCPCS: 41899; 41874 ×2; 93005; 36415 ×2; 82947; 84132; 85027; 80048; 93010; J2250; J3490 ×2; J1100; J3010; J0330; J2405; J2704; 170

== ENCOUNTER 2019-11-03 06:27 | Inpatient (IN) | payer MEDICARE, MEDICAID ==
[2019-11-03] MEDS ORDERED: NORMAL SALINE 250 ML IV ONE (07:08)
--- NOTE | 2019-11-03 07:35 | RADIOLOGY REPORT (SQ) ---
CT of the head: 11/03/2019 6:33 AM CDT HISTORY: 84-year-old patient with left-sided weakness. COMPARISON: None available TECHNIQUE: Multiple axial contiguous images were obtained through the head without intravenous contrast administered. This exam was performed according to our departmental dose-optimization program, which includes automated exposure control, adjustment of the mA and/or KV according to the patient's size and/or use of iterative reconstruction technique. FINDINGS: The ventricles and cerebral sulci demonstrate mild prominence, consistent with cerebral atrophy. There are mild periventricular hypodensities, suggestive of periventricular white matter changes. The bo-white matter differentiation is within normal limits. Both orbits appear unremarkable. The mastoid air cells appear clear. The visualized paranasal sinuses appear clear. The calvarium is intact. No extra-axial fluid collection is seen. No midline shift or mass effect is apparent. There are no findings to suggest acute intracranial hemorrhage. IMPRESSION: 1. No acute intracranial hemorrhage is seen. 2. Mild cerebral atrophy and periventricular white matter changes are seen. If there is persistent clinical concern for a neurologic deficit, consider MRI brain with diffusion-weighted sequences for further evaluation.
--- NOTE | 2019-11-03 07:47 | RADIOLOGY REPORT (SQ) ---
EXAM DESCRIPTION: X-ray single view chest. CLINICAL HISTORY: 84 years Female, left side weakness COMPARISON: 12/09/2017 TECHNIQUE: Single portable x-ray view of the chest performed on 11/03/2019 at 7:27 AM FINDINGS: The lungs are well expanded and are clear. There is no evidence of a pneumothorax. The cardiac silhouette is normal in size and configuration. The mediastinal contours are normal. No acute osseous abnormality is identified. No focal soft tissue abnormalities are seen. Lines and tubes: None. IMPRESSION: No evidence of acute intrathoracic disease.
[2019-11-03 08:23] LABS: INTERNATIONAL RATION (INR) 1.01; PROTHROMBIN TIME 13.3 SEC (11.4-15.4)
[2019-11-03 08:24] LABS: PARTIAL THROMBOPLASTIN TIME 27.9 SEC (23.5-35.8)
[2019-11-03 08:31] LABS: ABSOLUTE BASOPHILS # (AUTO) 0.1 10^3/uL (0.0-0.2); ABSOLUTE EOSINOPHILS # (AUTO) 0.2 10^3/uL (0.0-0.6); ABSOLUTE MONOCYTES (AUTO) 0.7 10^3/uL (0.1-1.4); ABSOLUTE NEUT (AUTO) 4.8 10^3/uL (1.7-8.2); BASOPHILS % (AUTO) 0.6 % (0-2); EOSINOPHILS % (AUTO) 2.2 % (0-6); HEMATOCRIT 42.9 % (36.0-47.0); HEMOGLOBIN 14.5 g/dL (12.0-15.5); LYMPHOCYTES % (AUTO) 25.9 % (13-45); MEAN CORPUSCULAR HEMOGLOBIN 31.7 pg (27.0-33.4); MEAN CORPUSCULAR HGB CONC 33.9 g/dL (32.0-36.0); MEAN CORPUSCULAR VOLUME 94 fl (80-97); MONOCYTES % (AUTO) 9.4 % (3-13); PLATELET COUNT 167 10^3/uL (150-450); RED BLOOD COUNT 4.59 10^6/uL (3.72-5.28); RED CELL DISTRIBUTION WIDTH 13.4 % (11.5-14.0); SEGMENTED NEUTROPHILS % (AUTO) 61.9 % (42-78); TOTAL CELLS COUNTED % (AUTO) 100 %; WHITE BLOOD COUNT 7.7 10^3/uL (4.0-10.5)
[2019-11-03 08:40] LABS: APPEARANCE,URINE CLOUDY; BILIRUBIN,URINE NEGATIVE (NEGATIVE); COLOR,URINE YELLOW; GLUCOSE, URINE NEGATIVE (NEGATIVE); KETONES,URINE NEGATIVE (NEGATIVE); LEUKOCYTE ESTERASE,URINE SMALL (NEGATIVE); NITRITE,URINE NEGATIVE (NEGATIVE); PROTEIN,URINE NEGATIVE (NEGATIVE); UROBILINOGEN,URINE NEGATIVE mg/dL (<2.0)
[2019-11-03 08:40] LABS: ALBUMIN 4.1 g/dL (3.5-5.0); ALKALINE PHOSPHATASE 104 U/L (38-126); ANION GAP 5 (5-19); ASPARTATE AMINO TRANSFERASE 30 U/L (14-36); BILIRUBIN,TOTAL 0.7 mg/dL (0.2-1.3); BLOOD UREA NITROGEN 33 mg/dL (7-20); CALCIUM 11.2 mg/dL (8.4-10.2); CARBON DIOXIDE 30 mmol/L (22-30); CHLORIDE 102 mmol/L (98-107); GLUCOSE 161 mg/dL (75-110); POTASSIUM 3.8 mmol/L (3.6-5.0); TOTAL PROTEIN 7.4 g/dL (6.3-8.2)
--- NOTE | 2019-11-03 10:21 | EKG REPORT ---
SEVERITY:- ABNORMAL ECG - SINUS RHYTHM RIGHT BUNDLE BRANCH BLOCK PROBABLE LEFT VENTRICULAR HYPERTROPHY : Confirmed by: Gladys Putnam 03-Nov-2019 10:20:33
--- NOTE | 2019-11-03 11:42 | RADIOLOGY REPORT (SQ) ---
EXAM DESCRIPTION: MRA HEAD WITHOUT; MRI HEAD WITHOUT IMAGES COMPLETED DATE/TIME: 11/03/2019 11:26 am REASON FOR STUDY: left sided weakness COMPARISON: None. TECHNIQUE: Multiplanar imaging includes non-contrasted T1, T2, FLAIR, and Diffusion with ADC map seq uences. Images stored on PACS. LIMITATIONS: None. FINDINGS: ANATOMY: No anomalies. Normal vascular flow voids. Pituitary fossa normal. CSF SPACES: Normal in size and contour. No hemorrhage. CEREBRUM: A few high-signal intensity lesions scattered throughout the white matter on FLAIR imaging with distribution suggesting chronic micro-vascular ischemic change. Sulci and gyri normal in size a nd contour. No evidence of hemorrhage, mass or extraaxial fluid collection. POSTERIOR FOSSA: No signal alteration. No hemorrhage. No edema, masses or mass effect. Internal ro tory canals, cerebello-pontine angles, mastoids normal. DIFFUSION: Small area of restricted diffusion external capsule on the right. Acute infarction. ORBITS: No masses. Globes normal. PARANASAL SINUSES: No fluid levels. Mucosa normal. OTHER: No other significant finding. IMPRESSION: Acute infarction right external capsule. Mild microvascular ischemia. EVIDENCE OF ACUTE STROKE: YES. RIGHT MCA. COMMENT: The findings were sent to the Radiology Results Communication Center at 11:36 on 11/03/2019 to be communicated to a licensed caregiver. TECHNICAL DOCUMENTATION: JOB ID: [id number] 2010 [employer]- All Rights Reserved Reading location - IP/workstation name: [email or web address]
[2019-11-03] MEDS ORDERED: NORMAL SALINE 1000 ML 1,000 ML IV ONE (11:46)
--- NOTE | 2019-11-03 12:10 | ER Document Report ---
Entered by CARMEN CHRISTENSEN SCRIBE 11/03/19 0706 Acting as scribe for:MARCUS GILES MD ED Dizziness/Weakness - General Chief Complaint: General Weakness Stated Complaint: WEAKNESS,DIZZINESS Time Seen by Provider: 11/03/19 06:37 Primary Care Provider: JEANETTE MARTINEZ MD [Primary Care Provider] - Follow up as needed Information source: Patient Notes: This 84 year old female patient presents to the emergency department today with dizziness for the past x2 weeks. Patient states it is exacerbated by bending and then standing up. Patient states it feels like there is a "pressure" on the top of her head and has seen her PCP for her dizziness. Patient states this morning she woke up around 4:30 am and had trouble getting out of bed or walking. Patient states she had left sided weakness and did not have this before going to bed last night. Patient states she has not had any recent falls but has a history of many. Denies any nosebleeds, chest pain, or blurry vision. Patient states she uses a walker to ambulate at home and has glasses. Patient states she had a head CT done x3 days ago in [place] and was told there were no acute changes. Patient denies a history of strokes. TRAVEL OUTSIDE OF THE [place] IN LAST 30 DAYS: No - Related Data Allergies/Adverse Reactions: adhesive tape [Adhesive Tape] Allergy (Intermediate, Verified 06/06/19 10:09) SILVA SKIN meperidine HCl [From Demerol] Allergy (Intermediate, Verified 06/06/19 10:09) VOMITING meperidine [From Demerol] Allergy (Verified 06/06/19 10:09) mesalamine [From Apriso] Allergy (Verified 06/06/19 10:09) Penicillins Allergy (Verified 11/03/19 10:35) ramipril Allergy (Verified 06/06/19 10:09) topiramate [From Topamax] Allergy (Verified 06/06/19 10:09) valsartan [From Diovan] Allergy (Verified 06/06/19 10:09) Past Medical History - General Information source: Patient - Social History Smoking Status: Never Smoker Cigarette use (# per day): No Lives with: Alone Family History: Reviewed & Not Pertinent - Past Medical History Cardiac Medical History: Reports: Hx Hypercholesterolemia, Hx Hypertension Endocrine Medical History: Reports: Hx Diabetes Mellitus Type 2 - diet controlled, Hx Hypothyroidism GI Medical History: Reports: Hx Crohn's Disease, Hx Gastroesophageal Reflux Disease Musculoskeletal Medical History: Reports Hx Arthritis Psychiatric Medical History: Reports: Hx Depression Past Surgical History: Reports: Hx Abdominal Surgery - SAHIL fundoplication, Hx Appendectomy, Hx Cholecystectomy, Hx Oral Surgery, Hx Tonsillectomy - Immunizations Hx Diphtheria, Pertussis, Tetanus Vaccination: Yes Hx Pneumococcal Vaccination: 04/11/11 Review of Systems - Review of Systems Constitutional: No symptoms reported EENT: See HPI. denies: Blurred vision Cardiovascular: See HPI, Dizziness. denies: Chest pain Respiratory: No symptoms reported Gastrointestinal: No symptoms reported Genitourinary: No symptoms reported Female Genitourinary: No symptoms reported Musculoskeletal: No symptoms reported Skin: No symptoms reported Hematologic/Lymphatic: No symptoms reported Neurological/Psychological: See HPI, Weakness - Left sided -: Yes All other systems reviewed and negative Physical Exam - Vital signs Vitals: Resp Pulse Ox 18 96 11/03/19 06:33 11/03/19 06:33 - General General appearance: Appears well, Alert - HEENT Head: Normocephalic, Atraumatic Eyes: Normal Extraocular movements intact: Yes Pupils: PERRL Neck: Supple. No: Carotid bruit Notes: No lateral gaze nystagmus. - Respiratory Respiratory status: No respiratory distress Chest status: Nontender Breath sounds: Normal Chest palpation: Normal - Cardiovascular Rhythm: Regular Heart sounds: Normal auscultation Murmur: No - Abdominal Inspection: Normal Distension: No distension Bowel sounds: Normal Tenderness: Nontender - Extremities Notes: Decreased motor strength of left upper and lower extremities. LUE decreased teaching dietitian strength and some pronator drift. Decreased strength in LLE by straight leg raise. - Neurological Cognition: Normal Orientation: AAOx4 Cranial nerves: Normal Additional motor exam normals: Dorsiflexion, Plantar flexion Sensory: Normal Notes: Dysarthria and speech is slightly slurred. Cranial nerves are intact and smile is symmetrical. Some pronator drift of left UE and 4/5 teaching dietitian strength. - Psychological Associated symptoms: Normal affect, Normal mood - Skin Skin Temperature: Warm Skin Moisture: Dry Skin Color: Normal Course - Re-evaluation Re-evalutation: 11/03/19 12:04 Patient is resting comfortably not showing any signs of distress at this time. Patient continues to have left-sided weakness both upper and lower extremity. However there is a slight improvement over her strength still I would graded 4 out of 5 for both lower and upper extremity. Speech is cleared without any slurring of words at this time. - Vital Signs Vital signs: Temp Pulse Resp BP Pulse Ox 97.4 F 20 148/74 H 95 11/03/19 06:35 11/03/19 08:04 11/03/19 08:04 11/03/19 08:04 11/03/19 12:05 Vital signs are stable. - Laboratory Result Diagrams: 11/03/19 08:00 11/03/19 08:00 Laboratory results interpreted by me: 11/03/19 11/03/19 08:00 08:06 BUN 33 H Creatinine 1.34 H Est GFR ( Amer) 45 L Est GFR (MDRD) Non-Af 38 L Glucose 161 H Calcium 11.2 H Ur Leukocyte Esterase SMALL H Laboratories show that there is a BUN of 33 and creatinine of 1.34 with a glucose of 161. Patient appears dehydrated and is receiving IV fluids as we speak at this time. Patient does have a small amount of leukocyte esterase on urine patient does not admit to any urinary tract issues. - Diagnostic Test Radiology reviewed: Image reviewed, Reports reviewed Radiology results interpreted by me: 11/03/19 12:06 Chest x-ray shows no acute process CT scan of the brain showed no evidence for an acute stroke MRI of brain shows acute infarct of the right internal capsule. MRA of the brain shows an acute infarct of the right internal capsule. 11/03/19 12:06 Chest x-ray shows no acute process. - EKG Interpretation by Me Additional EKG results interpreted by me: 11/03/19 12:06 Twelve-lead EKG shows sinus bradycardia with a rate of 56 and a right bundle branch block not new compared to EKG of 06/06/2019. Critical Care Note - Critical Care Note Total time excluding time spent on procedures (mins): 45 - Critical care time spent in managing patient's CVA with diagnostic testing ordering fluids for dehydration interpreting twelve-lead EKG and discussing findings with the accepting hospitalist. 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 NIH scale should be completed with appropriate accompanying assessment tools. *: 2. The NIH should reflect what the patient is capable of doing and should not be coached by the clinician. 1a. Level of Consciousness: 0=Alert;keenly responsive -: 1=Drowsy -: 2=Obtunded -: 3=Coma/unresponsive or reflex to noxious stimuli. 1a. Responses: 0 1b. Orientation Questions: a. What month is it? -: b. How old are you? -: 0=Answers both questions correctly. -: 1=Answers one question correctly or patient is intubated or has orotracheal trauma. -: 2=Answers neither question correctly. 1b. Responses: 0 1c. Response to commands: a. Open and close eyes? -: b. Tank Washer and release hand? -: Credit is given despite weakness. Demonstration of task is permitted. Substitute command if hands cannot be used. -: 0=Performs both tasks correctly -: 1=Performs one task correctly -: 2=Performs neither task correctly 1c. Responses: 0 2. Gaze: Establish eye contact and instruct patient to "Follow my finger" -: 0=Normal -: 1=Partial gaze palsy. Gaze is abnormal in one or both eyes, but where forced deviation or total gaze paresis is not present. -: 2=Forced deviation or total gaze paresis. 2. Responses: 0 3. Visual Rose: Sees fingers in all four quadrants. -: 0=No visual loss. -: 1=Partial hemianopsia. -: 2=Complete hemianopsia. -: 3=Bilateral hemianopsia (including Cortical blindness) 3. Responses: 0 4. Facial Movement: Instruct patient to: -: a. Show me your teeth -: b. Raise your eyebrows -: c. Close your eyes -: d. Smile -: 0=Normal symmetrical movement -: 1=Minor paralysis (flattened nasolabial fold, asymmetry on smiling). -: 2=Partial paralysis (total or near total paralysis of lower face). -: 3=Complete paralysis of upper and lower face 4. Responses: 0 5. Motor functions (left arm): Alternate sides and extend each arm with palms down (90 degrees if sitting or 45 degrees for supine). -: 0=No drift;limb holds for full 10 seconds. -: 1=Drift; limb holds but drifts down before full 10 seconds, but does not hit bed. -: 2=Some effort against gravity; limb cannot get to or maintain position. -: 3=No effort against gravity; limb falls. -: 4=No movement. -: UN=Amputation, joint fusion, explain in comments. 5. Responses (left arm): 1 5. Motor Functions (right arm): Alternate sides and extend each arm with palms down (90 degrees if sitting or 45 degrees for supine). -: 0=No drift;limb holds for full 10 seconds. -: 1=Drift; limb holds but drifts down before full 10 seconds, but does not hit bed. -: 2=Some effort against gravity; limb cannot get to or maintain position. -: 3=No effort against gravity; limb falls. -: 4=No movement. -: UN=Amputation, joint fusion, explain in comments. 5. Responses (right arm): 0 6. Motor Functions (left leg): With patient lying supine, alternate sides and extend each leg (30 degrees always while supine). -: 0=No drift, leg holds position for full 5 seconds -: 1=Drift; leg falls before full 5 seconds but does not hit bed. -: 2=Some effort against gravity, leg falls to bed but some effort against gravity. -: 3=No effort against gravity, leg falls to bed immediately. -: 4=No movement. -: UN=Amputation, joint fusion; explain in comments. 6. Responses (left leg): 1 6. Motor Functions (right leg): With patient lying supine, alternate sides and extend each leg (30 degrees always while supine). -: 0=No drift, leg holds position for full 5 seconds -: 1=Drift; leg falls before full 5 seconds but does not hit bed. -: 2=Some effort against gravity, leg falls to bed but some effort against gravity. -: 3=No effort against gravity, leg falls to bed immediately. -: 4=No movement. -: UN=Amputation, joint fusion; explain in comments. 7. Limb Ataxia: With eyes open instruct patient to: -: a. "Touch your finger to your nose". -: b. "Touch your heel to your zaman" -: 0=Absent -: 1=Present in one limb. -: 2=Present in two limbs. -: UN=Amputation or joint fusion; explain in comments. 8. Sensory: Test sensation using pinprick or noxious stimuli. Test as many body parts as possible. -: 0=Normal;no sensory loss -: 1=Mile to moderate sensory loss (patient feels pin prick but is less sharp on affected side). -: 2=Severe or total sensory loss. 9. Best Language: Instruct patient to: -: a. "Describe what you see in this picture." -: b. "Name the items in this picture." -: c. "Read these sentences." -: 0=No aphasia, normal -: 1=Mild to moderate aphasia. -: 2=Severe aphasia -: 3=Mute, global aphasia, no usable speech or auditory comprehension. 10. Articulation, Dysarthia: Instruct patient to: -: "Read these words" or "Repeat these words" -: 0=Normal -: 1=Mild to moderate; patient may slur some words but can be understood without difficulty. -: 2=Severe; patients speech so slurred as to be unintelligible in the absence of dysphasia. -: UN=Intubated or other physical barrier, explain in comments. 10. Responses: 1 11. Extinction or inattention: 0=No abnormality -: 1= Visual, tactile, auditory, spatial, or personal inattention or extinction to bilateral simulation in one or the sensory modalities. -: 2=Profound destinee-inattention or destinee-inattention to more than one modality; does not recognize own hand. Total Score: 3 Notes: Patient does not have a known last known well time as patient went to sleep the night before and awakening this condition this morning. Therefore patient was not eligible for any thrombolytic therapy. I personally performed the services described in the documentation, reviewed and edited the documentation which was dictated to the scribe in my presence, and it accurately records my words and actions.
[2019-11-03] MEDS ORDERED: DEXTROSE 50%-WATER 25 GM/50 ML DISP.SYRIN IV PRN ×2 (13:17)
[2019-11-03] MEDS ORDERED: GLUCAGON,HUMAN RECOMB 1 MG INJ SUBCUT PRN (13:17)
[2019-11-03] MEDS ORDERED: DEXTROSE 40% GEL 15 GM TUBE PO PRN ×2 (13:17)
[2019-11-03] MEDS ORDERED: ACETAMINOPHEN 650 MG SUPP.RECT PR PRN (13:29)
[2019-11-03] MEDS ORDERED: ACETAMINOPHEN 325 MG TABLET PO PRN (13:29)
--- NOTE | 2019-11-03 13:51 | PDOC H&P ---
History of Present Illness Admission Date/PCP: 11/03/19 12:21 JEANETTE MARTINEZ MD Patient complains of: Left-sided weakness History of Present Illness: PRIYA CANTRELL is a 84 year old female with a history of diabetes mellitus type 2, hypertension, arthritis, Crohn's disease, Santamaria's esophagus, who presents to the hospital with complaints of left-sided weakness involving her left arm and left leg. Patient's last known normal was last night. She woke up with this symptoms today. She complains of having experiencing dizziness and some disequilibrium for the past few days and went to see her primary care provider Tuesday. This morning, she began to have significant pressure headache in her parietal region and noticed that she could barely move her left arm and her left leg. She also notes slurred speech. She denies any lightheadedness or paresthe carline. Denies any trouble with word finding. Denies fevers or chills. Denies history of prior strokes. Past Medical History Cardiac Medical History: Reports: Hyperlipidema, Hypertension Denies: Coronary Artery Disease, Myocardial Infarction Pulmonary Medical History: Denies: Asthma, Bronchitis, Chronic Obstructive Pulmonary Disease (COPD), Pneumonia Neurological Medical History: Denies: Seizures Endocrine Medical History: Reports: Diabetes Mellitus Type 2 - diet controlled, Hypothyroidism GI Medical History: Reports: Crohn's Disease, Gastroesophageal Reflux Disease Musculoskeltal Medical History: Reports: Arthritis Psychiatric Medical History: Reports: Depression Hematology: Denies: Anemia Past Surgical History Past Surgical History: Reports: Appendectomy, Cholecystectomy, Tonsillectomy Social History Lives with: Alone Smoking Status: Never Smoker Frequency of Alcohol Use: None Hx Recreational Drug Use: No Hx Prescription Drug Abuse: No - Advance Directive Resuscitation Status: Do Not Resuscitate - DNR/DNI. Confirmed with patient Family History Family History: DM, Hypertension Parental Family History Reviewed: Yes Children Family History Reviewed: NA Sibling(s) Family History Reviewed.: NA Medication/Allergy Home Medications: Levothyroxine Sodium [Synthroid] 150 mcg PO QAM 02/15/17 Metoprolol Tartrate [Lopressor 25 mg Tablet] 50 mg PO Q12 02/15/17 Multivitamin [Multiple Vitamins] 1 tab PO DAILY 02/15/17 Omeprazole 40 mg PO BID 02/15/17 Hydrochlorothiazide [Hydrodiuril 25 mg Tablet] 25 mg PO QAM 06/06/19 Allergies/Adverse Reactions: adhesive tape [Adhesive Tape] Allergy (Intermediate, Verified 11/03/19 12:14) SILVA SKIN meperidine HCl [From Demerol] Allergy (Intermediate, Verified 11/03/19 12:14) VOMITING meperidine [From Demerol] Allergy (Verified 11/03/19 12:14) mesalamine [From Apriso] Allergy (Verified 11/03/19 12:14) Penicillins Allergy (Verified 11/03/19 12:14) ramipril Allergy (Verified 11/03/19 12:14) topiramate [From Topamax] Allergy (Verified 11/03/19 12:14) valsartan [From Diovan] Allergy (Verified 11/03/19 12:14) Review of Systems Constitutional: ABSENT: chills, fatigue, fever(s) Eyes: ABSENT: visual disturbances Ears: ABSENT: hearing changes Nose, Mouth, and Throat: PRESENT: headache(s) Cardiovascular: ABSENT: chest pain Respiratory: ABSENT: cough, dyspnea Gastrointestinal: ABSENT: abdominal pain, nausea, vomiting Genitourinary: ABSENT: difficulty urinating, dysuria Musculoskeletal: PRESENT: back pain - Chronic Integumentary: ABSENT: diaphoresis Neurological: ABSENT: confusion, dizziness, numbness, paresthesias Psychiatric: ABSENT: anxiety Endocrine: ABSENT: polyuria Hematologic/Lymphatic: ABSENT: easy bleeding Physical Exam Vital Signs: Temp Pulse Resp BP Pulse Ox 97.4 F 13 151/91 H 95 11/03/19 06:35 11/03/19 10:01 11/03/19 10:01 11/03/19 10:01 Intake & Output 11/02/19 11/03/19 11/04/19 06:59 06:59 06:59 Intake Total 250 Balance 250 Weight 73.028 kg General appearance: PRESENT: no acute distress, cooperative Eye exam: PRESENT: EOMI. ABSENT: nystagmus Mouth exam: PRESENT: neck supple Neck exam: ABSENT: JVD Respiratory exam: PRESENT: clear to auscultation odalis, symmetrical, unlabored. ABSENT: rales, tachypnea, wheezes Cardiovascular exam: PRESENT: RRR, +S1, +S2. ABSENT: tachycardia GI/Abdominal exam: PRESENT: soft. ABSENT: rebound, rigid, tenderness Extremities exam: ABSENT: pedal edema Neurological exam: PRESENT: alert, awake, oriented to person, oriented to place, oriented to time, oriented to situation, ataxia - Ataxia noted in left hand, motor sensory deficit - 3/5 in left upper and lower extremity, 5/5 in right upper and right lower extremity.. ABSENT: CN II-XII grossly intact - Notable for left facial droop, left deviation of the tongue, dysarthria, aphasic Psychiatric exam: ABSENT: agitated, anxious Results Laboratory Results: 11/03/19 08:00 11/03/19 08:00 11/03/19 11/03/19 11/03/19 08:00 08:00 08:06 WBC 7.7 RBC 4.59 Hgb 14.5 Hct 42.9 MCV 94 MCH 31.7 MCHC 33.9 RDW 13.4 Plt Count 167 Seg Neutrophils % 61.9 Sodium 137.0 Potassium 3.8 Chloride 102 Carbon Dioxide 30 Anion Gap 5 BUN 33 H Creatinine 1.34 H Est GFR ( Amer) 45 L Glucose 161 H Calcium 11.2 H Total Bilirubin 0.7 AST 30 Alkaline Phosphatase 104 Total Protein 7.4 Albumin 4.1 Urine Color YELLOW Urine Appearance CLOUDY Urine pH 6.0 Ur Specific Addison 1.010 Urine Protein NEGATIVE Urine Glucose (UA) NEGATIVE Urine Ketones NEGATIVE Urine Blood NEGATIVE Urine Nitrite NEGATIVE Ur Leukocyte Esterase SMALL H Urine WBC (Auto) 8 Urine RBC (Auto) 2 11/03/19 08:00 Troponin I < 0.012 Impressions: Head CT 11/03/19 07:05 IMPRESSION: 1. No acute intracranial hemorrhage is seen. 2. Mild cerebral atrophy and periventricular white matter changes are seen. If there is persistent clinical concern for a neurologic deficit, consider MRI brain with diffusion-weighted sequences for further evaluation. Chest X-Ray 11/03/19 07:07 IMPRESSION: No evidence of acute intrathoracic disease. Head MRI 11/03/19 09:21 IMPRESSION: Acute infarction right external capsule. Mild microvascular ischemia. EVIDENCE OF ACUTE STROKE: YES. RIGHT MCA. Brain MRI with MRA 11/03/19 09:22 IMPRESSION: Acute infarction right external capsule. Mild microvascular ischemia. EVIDENCE OF ACUTE STROKE: YES. RIGHT MCA. Assessment and Plan - Diagnosis (1) Acute ischemic stroke Is this a current diagnosis for this admission?: Yes Plan: MRI and MRA of the brain show acute ischemic stroke involving the right external capsule. Out of TPA window. Predominant symptoms currently include left facial deviation, left upper and lower extremity weakness, dysarthria and tongue deviation. NIHSS score currently is 6 on my assessment Permissive hypertension x24 hours, flat in bed for 24 hours Risk assessment: Check hemoglobin A1c, lipid panel, carotid ultrasound and echocardiogram. Monitor on telemetry. PT/OT/SW/speech therapy and swallow assessment Start aspirin, Plavix and atorvastatin (2) Diabetes mellitus type 2 in obese Is this a current diagnosis for this admission?: Yes Plan: States she is not on any medications for diabetes. We will check hemoglobin A1c in the morning. Monitor blood sugar every 6 hours while n.p.o. (3) Hypercalcemia Is this a current diagnosis for this admission?: Yes Plan: Seems to have been hypercalcemic mildly several times in the past as well. Currently calcium is 11.2. Could be secondary to dehydration. I will administer normal saline infusion and check level in the morning. We will also check vitamin D and PTH and PTH related peptide levels. (4) Hypertension Qualifiers: Hypertension type: essential hypertension Qualified Code(s): I10 - Essential (primary) hypertension Is this a current diagnosis for this admission?: Yes Plan: Resume antihypertensives tomorrow following permissive hypertension today (5) Hypothyroid Qualifiers: Hypothyroidism type: unspecified Qualified Code(s): E03.9 - Hypothyroidism, unspecified Is this a current diagnosis for this admission?: Yes Plan: synthroid - Time Time Spent with patient: 35 or more minutes Medications reviewed and adjusted accordingly: Yes Anticipated Discharge Disposition: Home with Home Health Anticipated Discharge: within 48 hours
[2019-11-03] MEDS: LEVOTHYROXINE SODIUM 0.15 MG TABLET PO SCH (17:28)
[2019-11-03] MEDS ORDERED: ASPIRIN 300 MG SUPP, RECTAL PR ONE (17:53)
[2019-11-03] MEDS: ASPIRIN 300 MG SUPP, RECTAL PR SCH (17:57)
[2019-11-03] MEDS: INSULIN LISPRO 100 UNIT/ML 3 ML VIAL SUBCUT SCH (20:21)
[2019-11-03] MEDS ORDERED: FAMOTIDINE INJ/PF 20 MG/2 ML SDV IV SCH (22:00)
[2019-11-03] MEDS: ATORVASTATIN CALCIUM 80 MG TABLET PO SCH (22:37)
[2019-11-03] MEDS: NORMAL SALINE 1000 ML 1,000 ML IV PRN (23:36)
[2019-11-04] MEDS: INSULIN LISPRO 100 UNIT/ML 3 ML VIAL SUBCUT SCH ×4 (04:28→18:08)
[2019-11-04] MEDS: LEVOTHYROXINE SODIUM 0.15 MG TABLET PO SCH (05:54)
[2019-11-04 08:02] LABS: HEMATOCRIT 38.6 % (36.0-47.0); HEMOGLOBIN 13.2 g/dL (12.0-15.5); MEAN CORPUSCULAR HEMOGLOBIN 31.8 pg (27.0-33.4); MEAN CORPUSCULAR HGB CONC 34.2 g/dL (32.0-36.0); MEAN CORPUSCULAR VOLUME 93 fl (80-97); PLATELET COUNT 147 10^3/uL (150-450); RED BLOOD COUNT 4.15 10^6/uL (3.72-5.28); RED CELL DISTRIBUTION WIDTH 13.6 % (11.5-14.0); WHITE BLOOD COUNT 4.8 10^3/uL (4.0-10.5)
[2019-11-04 08:18] LABS: BLOOD UREA NITROGEN 21 mg/dL (7-20); CALCIUM 9.8 mg/dL (8.4-10.2); CHOLESTEROL 165.14 mg/dL (0-200); GLUCOSE 101 mg/dL (75-110); POTASSIUM 3.8 mmol/L (3.6-5.0); TRIGLYCERIDES 211 mg/dL (<150)
[2019-11-04 08:23] LABS: CARBON DIOXIDE 29 mmol/L (22-30); CHLORIDE 109 mmol/L (98-107)
[2019-11-04 08:29] LABS: DIRECT LDL 92 mg/dL (<100)
[2019-11-04 08:31] LABS: VLDL CHOLESTEROL 42.2 mg/dL (10-31)
[2019-11-04 08:32] LABS: ANION GAP 2 (5-19)
[2019-11-04] MEDS: ENOXAPARIN SODIUM INJ 40 MG/0.4 ML DISP.SYRIN SUBCUT SCH (09:49)
[2019-11-04] MEDS: ASPIRIN 300 MG SUPP, RECTAL PR SCH (09:50)
[2019-11-04] MEDS ORDERED: PANTOPRAZOLE SODIUM 40 MG VIAL IV SCH (10:00)
[2019-11-04] MEDS: CLOPIDOGREL BISULFATE 75 MG TABLET PO SCH (13:42)
[2019-11-04] MEDS: NORMAL SALINE 1000 ML 1,000 ML IV PRN (18:09)
--- NOTE | 2019-11-04 19:00 | PDOC PROGRESS REPORT ---
Subjective Progress Note for:: 11/04/19 Subjective:: Patient denies any shortness of breath or chest pain. Denies any palpitations or irregular heart rhythm. States that her diabetes is diet controlled. Open to the idea of inpatient rehabilitation. Said that she used to be independent prior to this but not having even a difficult time withpivoting. Reason For Visit: ACUTE STROKE Physical Exam Vital Signs: Temp Pulse Resp BP Pulse Ox 97.5 F 59 L 16 144/56 H 95 11/04/19 03:31 11/04/19 14:49 11/04/19 14:49 11/04/19 14:49 11/04/19 14:49 Intake & Output 11/03/19 11/04/19 11/05/19 06:59 06:59 06:59 Intake Total 1250 1000 Balance 1250 1000 Weight 73.028 kg 78 kg General appearance: PRESENT: no acute distress, cooperative Neck exam: ABSENT: JVD Respiratory exam: PRESENT: symmetrical, unlabored. ABSENT: tachypnea, wheezes Cardiovascular exam: PRESENT: RRR, +S1, +S2. ABSENT: irregular rhythm, tachycardia GI/Abdominal exam: PRESENT: soft. ABSENT: rebound, rigid, tenderness Neurological exam: PRESENT: alert, awake, oriented to person, oriented to place, oriented to time, oriented to situation, motor sensory deficit - Weakness in left upper and left lower extremities. ABSENT: CN II-XII grossly intact - Significant dysarthria noted as well as tongue deviation, aphasic Results Laboratory Results: 11/04/19 07:50 11/04/19 07:50 11/04/19 11/04/19 11/04/19 07:50 07:50 07:50 WBC 4.8 RBC 4.15 Hgb 13.2 Hct 38.6 MCV 93 MCH 31.8 MCHC 34.2 RDW 13.6 Plt Count 147 L Sodium 139.9 Potassium 3.8 Chloride 109 H Carbon Dioxide 29 Anion Gap 2 L BUN 21 H Creatinine 1.14 Est GFR ( Amer) 55 L Glucose 101 Calcium 9.8 Triglycerides 211 H Cholesterol 165.14 LDL Cholesterol Direct 92 VLDL Cholesterol 42.2 H HDL Cholesterol 39 L PTH Intact 173.4 H 11/03/19 08:00 Troponin I < 0.012 Impressions: Head CT 11/03/19 07:05 IMPRESSION: 1. No acute intracranial hemorrhage is seen. 2. Mild cerebral atrophy and periventricular white matter changes are seen. If there is persistent clinical concern for a neurologic deficit, consider MRI brain with diffusion-weighted sequences for further evaluation. Chest X-Ray 11/03/19 07:07 IMPRESSION: No evidence of acute intrathoracic disease. Head MRI 11/03/19 09:21 IMPRESSION: Acute infarction right external capsule. Mild microvascular ischemia. EVIDENCE OF ACUTE STROKE: YES. RIGHT MCA. Brain MRI with MRA 11/03/19 09:22 IMPRESSION: Acute infarction right external capsule. Mild microvascular ischemia. EVIDENCE OF ACUTE STROKE: YES. RIGHT MCA. Assessment and Plan - Diagnosis (1) Acute ischemic stroke Is this a current diagnosis for this admission?: Yes Plan: MRI and MRA of the brain show acute ischemic stroke involving the right external capsule. Out of TPA window. Predominant symptoms currently include left facial deviation, left upper and lower extremity weakness, dysarthria and tongue deviation. Will discontinue permissive hypertension and resume home blood pressure medications. Awaiting echocardiogram and carotid ultrasound which will be done tomorrow Evaluated by speech therapy today who recommends modified barium swallow study scheduled for tomorrow and in the meantime as recommended soft diet with honey thick liquids. Patient has been taken off n.p.o. status. Patient required max assist of 2 on physical therapy assessment today. She will likely need inpatient rehab. I have placed a consult for Dr. Jeff Schmidt to a [facility] to see if she qualifies for inpatient acute rehab. Continue physical and occupational therapy. meeting/event planner/social services counselor involved. Telemetry reviewed and no evidence of arrhythmias. Continue aspirin, Plavix and atorvastatin (2) Diabetes mellitus type 2 in obese Is this a current diagnosis for this admission?: Yes Plan: Patient states that her diabetes is diet controlled. Hemoglobin A1c is actually 7 showing very good control of her diabetes even in the absence of pharmacotherapy. Diabetic diet. (3) Hypercalcemia Is this a current diagnosis for this admission?: Yes Plan: Seems to have been hypercalcemic mildly several times in the past as well. On admission, calcium is 11.2 but has improved to 9.8 today after receiving IV fluids. PTH is elevated and her vitamin D 25 is appropriately low normal suggestive of primary hyperparathyroidism as etiology. (4) Hypertension Qualifiers: Hypertension type: essential hypertension Qualified Code(s): I10 - Essential (primary) hypertension Is this a current diagnosis for this admission?: Yes Plan: Resume hydrochlorothiazide and Lopressor (5) Hypothyroid Qualifiers: Hypothyroidism type: unspecified Qualified Code(s): E03.9 - Hypothyroidism, unspecified Is this a current diagnosis for this admission?: Yes Plan: synthroid - Time Time Spent with patient: 15-24 minutes Anticipated Discharge Disposition: Custodial Care Facility Anticipated Discharge: within 48 hours
[2019-11-04] MEDS: METOPROLOL TARTRATE 25 MG TABLET PO SCH (21:50)
[2019-11-04] MEDS: HYDROCHLOROTHIAZIDE 25 MG TABLET PO SCH (21:51)
[2019-11-04] MEDS: ATORVASTATIN CALCIUM 80 MG TABLET PO SCH (21:52)
[2019-11-05] MEDS: INSULIN LISPRO 100 UNIT/ML 3 ML VIAL SUBCUT SCH ×4 (00:53→18:30)
[2019-11-05] MEDS ORDERED: PANTOPRAZOLE SODIUM 20 MG TABLET.DR PO SCH (06:00)
[2019-11-05] MEDS: PANTOPRAZOLE SODIUM 20 MG TABLET.DR PO SCH (06:21)
[2019-11-05] MEDS: LEVOTHYROXINE SODIUM 0.15 MG TABLET PO SCH (06:21)
--- NOTE | 2019-11-05 09:21 | ST Inp Modified Barium Swallow ---
Medical Diagnosis - Medical Diagnoses Medical Diagnosis Description & ICD-10 Code(s): acute CVA, dysphagia - ICD-10 Tx Diagnosis Coding (1) Acute ischemic cerebrovascular accident (CVA) involving middle cerebral artery territory ICD-10 Code(s): I63.519 - CEREB INFRC D/T UNSP OCCLS OR STENOS OF UNSP MID CEREB ART (2) Dysphagia, oropharyngeal ICD-10 Code(s): R13.12 - DYSPHAGIA, OROPHARYNGEAL PHASE (3) Dysphagia, pharyngeal ICD-10 Code(s): R13.13 - DYSPHAGIA, PHARYNGEAL PHASE ST Inpatient MBS - General Date: 11/05/19 Date of Onset: 11/02/19 - History -: Medical - per EMR: patient admitted 11/02 with left sided weakness and slurred speech. MRI revealed right MCA infarct. Patient failed her nursing swallow screen due to coughing, has been held NPO. Prior medical history includes DMII, HTN, arthritis, Crohn's disease, Santamaria's esophagus. At bedside clinical assessment, patient demonstrated consistent cough with thin and nectar thick liquids. Honey thick liquids and mechanical soft solids with grounds meats were recommended, as well as MBSS to further assess pharyngeal phase swallowing function. Medications: Medications Reviewed Allergies: Refer to medical record - Subjective Current Nutritional Means: PO Current PO Diet: Mechanical- ground, Thickened liquids - honey Current Symptoms: Coughing Pain: Patient reports, 0/5 - Objective Assessment: Upright, Left Lateral - Food Trials Food Trials Used: Thin liquids, Honey-thickened liquids, [place] thick liquids, Pureed, Regular The Patient: Was Able to Self Feed - Assessment Labial Function: Within Normal Limits Lingual Function: Within Normal Limits Mandibular Function: Within Normal Limits Dentition: Partial Velo-Pharyngeal Function: Unremarkable Laryngeal Function: clear voicing - Pharyngeal Stage Initiation of Pharyngeal Stage: Delayed - bolus fully in pharynx prior to swallow initiating Decreased Laryngeal Elevation: Yes - mild Reduced Velo-Pharyngeal Closure: no Reduced Pressure Generation: Yes - mild Reduced Tongue Base Retraction: No Pre-Swallowing Pooling in Valleculae: Moderate Pre-Swallowing Pooling in Pyriforms: Moderate Reduced Thyro-Hyiod Approximation: Yes - mild Reduced Epiglottic Excursion: No Reduced Pharyngeal Peristalsis: No Multiple Swallows With: Cleared w/ Dry Swallow Post Swallow Residuals in Valleculae: Moderate Post Swallow Residuals in Pyriforms: Mild Post Swallow Residuals: Posterior pharyngeal wall - mild, with solids - Impression/Summary Laryngeal Penetration: Yes - consistent penetration, to the level of the vocal folds at times, with all liquid trials (thin, nectar, honey). Cough reflex seen with very deep penetration. Tracheal Aspiration: no Productive Cough: Yes Effective Clearing: partial clearing Effective Compensatory Strategies: chin down, throat clear & reswallow Patient Presents With: Pharyngeal stage dysph., Mild-Moderate Risk of Aspiration: Moderate Risk Due To: Patient has impaired timing of the swallow, causing material to enter the airway prior to airway closure on the swallow, seen with all liquid textures. Mild weakness of laryneal elevation and pharyngeal constriction also seen. - Recommendations Solid Diet Recommendations: Mechanical Soft, Ground Meat Liquid Diet Recommendations: Thin Strict Aspitarion Precautions: Yes Recommended Techniques: Small Bites and Sips, Chin Tuck to Swallow Other Recommendations: Recommend patient have thin liquids with use of strategies (chin down, small sips). Also recommend continuing mechanical soft solids with ground meats due to dentition. Discussed diet recommendations Dr. Pugh, diet order to be placed by therapist per physician direction. Patient may benefit from dysphagia treatment to improve timing and strength of the swallow. Beneficial goals would be: Patient will demonstrate 5 "fast hard" swallows in 30 seconds x2. Patient will demonstrate effortful swallow x10 with min cues. - Time Total Time: 30 Total Timed Minutes: 30
--- NOTE | 2019-11-05 10:29 | RADIOLOGY REPORT (SQ) ---
EXAM DESCRIPTION: COOKIE SWALLOW IMAGES COMPLETED DATE/TIME: 11/05/2019 9:19 am REASON FOR STUDY: CVA, signs of aspiration COMPARISON: None. TECHNIQUE: Videofluoroscopic swallowing examination was performed in conjunction with speech patholo gy. Videofluoroscopic imaging was obtained and reviewed and these are the findings: RADIATION DOSE: Fluoro time 3 minutes 1 images saved to PACS. LIMITATIONS: None FINDINGS: The patient was brought into the fluoro room and placed upright on a modified barium swall ow chair. The patient was then given multiple consistencies mixed with barium to swallow under live fluoroscopic video guidance. According to the Speech Pathologist there was laryngeal penetration see n with thin, nectar thick and honey thick consistencies. No aspiration was identified. Please refer to the speech pathology report for further details. IMPRESSION: LARYNGEAL PENETRATION, WITHOUT ASPIRATION, SEEN WITH THIN, NECTAR THICK AND HONEY THICK CONSISTENCIES. PLEASE SEE SPEECH PATHOLOGIST REPORT FOR OTHER FINDINGS AND RECOMMENDATIONS. COMMENT: NONE Quality ID 145: Final reports for procedures using fluoroscopy that document radiation exposure karolyn anila, or exposure time and number of fluorographic images (if radiation exposure indices are not avail able) TECHNICAL DOCUMENTATION: JOB ID: [id number] 2010 [employer]- All Rights Reserved Reading location - IP/workstation name: [email or web address] [id number]
[2019-11-05] MEDS: METOPROLOL TARTRATE 25 MG TABLET PO SCH (10:38)
[2019-11-05] MEDS: ENOXAPARIN SODIUM INJ 40 MG/0.4 ML DISP.SYRIN SUBCUT SCH (10:38)
[2019-11-05] MEDS: ASPIRIN 81 MG TABLET, ENT COATED PO SCH (10:39)
[2019-11-05] MEDS: HYDROCHLOROTHIAZIDE 25 MG TABLET PO SCH (10:39)
[2019-11-05] MEDS: MULTIVITAMIN TABLET PO SCH (10:39)
[2019-11-05] MEDS: CLOPIDOGREL BISULFATE 75 MG TABLET PO SCH (10:39)
--- NOTE | 2019-11-05 14:58 | RADIOLOGY REPORT (SQ) ---
EXAM DESCRIPTION: CAROTID DOPPLER IMAGES COMPLETED DATE/TIME: 11/05/2019 2:41 pm REASON FOR STUDY: acute CVA COMPARISON: None. TECHNIQUE: Grayscale ultrasound, Doppler velocity and spectra, and color Doppler images acquired of the extra-cranial carotid and vertebral arteries. Images stored on PACS. LIMITATIONS: None. FINDINGS: RIGHT CAROTID CCA Velocities: Within normal limits. ICA Velocities Peak systolic 87 cm/s. End diastolic 26 cm/s. Proximal ICA/CCA peak systolic ratio 1.1. Spectra normal. No significant plaque. LEFT CAROTID CCA Velocities: Within normal limits. ICA Velocities Peak systolic 88 cm/s. End diastolic 23 cm/s. Proximal ICA/CCA peak systolic ratio 1.4. Spectra normal. No significant plaque. VERTEBRAL ARTERIES: Antegrade flow. Normal waveforms. SUBCLAVIAN ARTERIES: No finding. OTHER: No other significant finding. IMPRESSION: NO HEMODYNAMICALLY SIGNIFICANT STENOSIS. COMMENT: Quality ID #[id number]: Velocity criteria are extrapolated from the diameter data as defined by t he Society of Radiologists in Ultrasound Consensus Conference. Radiology 2003: 229; 340-346. TECHNICAL DOCUMENTATION: JOB ID: [id number] 2010 [employer]- All Rights Reserved Reading location - IP/workstation name: [email or web address]
--- NOTE | 2019-11-05 15:05 | PDOC PROGRESS REPORT ---
Subjective Progress Note for:: 11/05/19 Subjective:: Patient feels well today. Still has muscle deficits in her left side. Talking better. Went through MB BS this morning. I offered to call any family members to update her of her condition but she continues to insist that the only family member she has is her nephew and she does not want me to contact him. She states she will update him later on down the line herself. Reason For Visit: ACUTE STROKE Physical Exam Vital Signs: Temp Pulse Resp BP Pulse Ox 97.5 F 58 L 20 135/64 H 98 11/05/19 07:13 11/05/19 08:00 11/05/19 08:00 11/05/19 08:00 11/05/19 08:00 Intake & Output 11/04/19 11/05/19 11/06/19 06:59 06:59 06:59 Intake Total 1250 1218 100 Balance 1250 1218 100 Weight 78 kg 81.2 kg General appearance: PRESENT: no acute distress, cooperative Respiratory exam: ABSENT: unlabored GI/Abdominal exam: PRESENT: soft. ABSENT: rigid, tenderness Neurological exam: PRESENT: alert, awake, oriented to person, oriented to place, oriented to time, oriented to situation, motor sensory deficit - 4/5 in left upper and left lower extremity but left upper extremity feels a bit stronger than before. Results Laboratory Results: 11/04/19 07:50 11/04/19 07:50 11/03/19 08:00 Troponin I < 0.012 Impressions: Head CT 11/03/19 07:05 IMPRESSION: 1. No acute intracranial hemorrhage is seen. 2. Mild cerebral atrophy and periventricular white matter changes are seen. If there is persistent clinical concern for a neurologic deficit, consider MRI brain with diffusion-weighted sequences for further evaluation. Chest X-Ray 11/03/19 07:07 IMPRESSION: No evidence of acute intrathoracic disease. Head MRI 11/03/19 09:21 IMPRESSION: Acute infarction right external capsule. Mild microvascular ischemia. EVIDENCE OF ACUTE STROKE: YES. RIGHT MCA. Brain MRI with MRA 11/03/19 09:22 IMPRESSION: Acute infarction right external capsule. Mild microvascular ischemia. EVIDENCE OF ACUTE STROKE: YES. RIGHT MCA. Carotid Doppler Study 11/05/19 00:00 IMPRESSION: NO HEMODYNAMICALLY SIGNIFICANT STENOSIS. Modified Barium Swallow 11/05/19 00:01 IMPRESSION: LARYNGEAL PENETRATION, WITHOUT ASPIRATION, SEEN WITH THIN, NECTAR THICK AND HONEY THICK CONSISTENCIES. PLEASE SEE SPEECH PATHOLOGIST REPORT FOR OTHER FINDINGS AND RECOMMENDATIONS. Assessment and Plan - Diagnosis (1) Acute ischemic stroke Is this a current diagnosis for this admission?: Yes Plan: MRI and MRA of the brain show acute ischemic stroke involving the right external capsule. Out of TPA window. Predominant symptoms currently include left facial deviation, left upper and lower extremity weakness, dysarthria and tongue deviation. Modified barium swallow study shows penetration with all liquids but no aspiration below the level of the vocal cords. Speech pathologist recommends soft diet with thin liquids with small sips Patient required max assist of 2 on physical therapy assessment yesterday. I have placed a consult for Dr. Lonnie Schmidt to assess patient to see if she qualifies for inpatient acute rehab at [facility]. Continue physical and occupational therapy. kit planner/social insurance specialist involved. Telemetry reviewed and no evidence of A. fib. Continue aspirin daily, Plavix [21-day duration] and atorvastatin Echocardiogram and carotid Dopplers done today-awaiting results (2) Diabetes mellitus type 2 in obese Is this a current diagnosis for this admission?: Yes Plan: Patient states that her diabetes is diet controlled. Hemoglobin A1c is actually 7 showing very good control of her diabetes even in the absence of pharmacotherapy. Diabetic diet. (3) Hypercalcemia Is this a current diagnosis for this admission?: Yes Plan: Seems to have been hypercalcemic mildly several times in the past as well. Hypercalcemic on admission but resolved now. PTH is elevated and her vitamin D 25 is appropriately low normal suggestive of primary hyperparathyroidism as etiology. Outpatient follow-up with PCP and/or loan processor. (4) Hypertension Qualifiers: Hypertension type: essential hypertension Qualified Code(s): I10 - Essential (primary) hypertension Is this a current diagnosis for this admission?: Yes Plan: I have discontinued her Lopressor due to bradycardia. Continue hydrochlorothiazide. If BP is not optimally controlled on hydrochlorothiazide only, can add amlodipine. (5) Hypothyroid Qualifiers: Hypothyroidism type: unspecified Qualified Code(s): E03.9 - Hypothyroidism, unspecified Is this a current diagnosis for this admission?: Yes Plan: synthroid - Time Time Spent with patient: 15-24 minutes Anticipated Discharge Disposition: Assisted Facility Anticipated Discharge: when bed available
--- NOTE | 2019-11-05 22:01 | XCELERA REPORT ---
[address] [address] Transthoracic Echocardiogram Report Name: PRIYA CANTRELL Age: 84 yrs Gender: Female : 1935 [facility]: 11/05/2019 09:28 AM Height: 64 in Weight: 161 lb BSA: 1.8 m2 Procedure: A complete two-dimensional transthoracic echocardiogram was performed (2D, M-mode, spectral and color flow Doppler). Study Quality: Fair. Reason For Study: acute cva Ordering Physician: LEAH DANG Performed By: Thelma Sharma Interpretation Summary The left ventricle is grossly normal size. Left ventricular systolic function is normal. The Ejection Fraction estimate is 60-65%. Doppler measurements suggest impaired left ventricular relaxation, which is associated with grade I/IV or mild diastolic dysfunction. Regional wall motion abnormalities cannot be excluded due to limited visualization. No gross echocardiographic evidence for left ventricular thrombus however the images are suboptimal. Sigmoid shaped interventricular septum. Mild LAE. Trace TR, mild MR. MMode/2D Measurements & Calculations RVDd: 3.5 cm LVIDd: 4.2 cm FS: 46.4 % Ao root diam: 2.6 cm IVSd: 0.93 cm LVIDs: 2.3 cm EDV(Teich): 80.0 ml Ao root area: 5.2 cm2 LVPWd: 0.93 cm ESV(Teich): 17.5 ml LA dimension: 4.2 cm EF(Teich): 78.1 % Doppler Measurements & Calculations MV E max carissa: MV P1/2t max carissa: Ao V2 max: LV V1 max P.4 cm/sec 84.9 cm/sec 168.5 cm/sec 3.6 mmHg MV A max carissa: MV P1/2t: 87.6 msec Ao max PG: LV V1 max: 103.2 cm/sec MVA(P1/2t): 2.5 cm2 11.4 mmHg 95.3 cm/sec MV E/A: 0.85 MV dec slope: 283.8 cm/sec2 MV dec time: 0.28 sec PA V2 max: TR max carissa: MV P1/2t-pr_phl: 67.6 cm/sec 259.3 cm/sec 87.6 msec PA max P.8 mmHg TR max P.9 mmHg Left Ventricle The left ventricle is grossly normal size. Left ventricular systolic function is normal. The Ejection Fraction estimate is 60-65%. Doppler measurements suggest impaired left ventricular relaxation, which is associated with grade I/IV or mild diastolic dysfunction. Regional wall motion abnormalities cannot be excluded due to limited visualization. No gross echocardiographic evidence for left ventricular thrombus however the images are suboptimal. Right Ventricle The right ventricle is grossly normal size. The right ventricular systolic function is normal. Atria The right atrium is normal. The left atrium is mildly dilated. The interatrial septum is intact with no evidence for an atrial septal defect. Sigmoid shaped interventricular septum. Mitral Valve The mitral valve is grossly normal. There is no mitral valve stenosis. There is a mild amount of mitral regurgitation. Aortic Valve The aortic valve is not well visualized secondary to technical limitations. There is no aortic valve stenosis. No aortic regurgitation is present. Tricuspid Valve The tricuspid is normal in structure and function. There is no tricuspid stenosis. There is a trace amount of tricuspid regurgitation. Pulmonic Valve The pulmonic valve is not well visualized. There is no pulmonic valvular regurgitation. Effusions There is no pericardial effusion. There is no pleural effusion. : LEAH DANG Antonio
[2019-11-05] MEDS: ATORVASTATIN CALCIUM 80 MG TABLET PO SCH (22:17)
[2019-11-06] MEDS: INSULIN LISPRO 100 UNIT/ML 3 ML VIAL SUBCUT SCH ×4 (02:07→17:17)
[2019-11-06] MEDS: LEVOTHYROXINE SODIUM 0.15 MG TABLET PO SCH (05:52)
[2019-11-06] MEDS: PANTOPRAZOLE SODIUM 20 MG TABLET.DR PO SCH (05:52)
[2019-11-06] MEDS: ENOXAPARIN SODIUM INJ 40 MG/0.4 ML DISP.SYRIN SUBCUT SCH (09:24)
[2019-11-06] MEDS: MULTIVITAMIN TABLET PO SCH (09:24)
[2019-11-06] MEDS: CLOPIDOGREL BISULFATE 75 MG TABLET PO SCH (09:24)
[2019-11-06] MEDS: AMLODIPINE BESYLATE 5 MG TABLET PO SCH (09:24)
[2019-11-06] MEDS: ASPIRIN 81 MG TABLET, ENT COATED PO SCH (09:24)
[2019-11-06] MEDS: HYDROCHLOROTHIAZIDE 25 MG TABLET PO SCH (09:24)
--- NOTE | 2019-11-06 12:28 | RADIOLOGY REPORT (SQ) ---
EXAM DESCRIPTION: CT HEAD WITHOUT IMAGES COMPLETED DATE/TIME: 11/06/2019 12:13 pm REASON FOR STUDY: headache, increased slurring speech. recent cva COMPARISON: 11/03/2019 TECHNIQUE: Axial images acquired through the brain without intravenous contrast. Images reviewed wi th bone, brain and subdural windows. Additional sagittal and coronal reconstructions were generated. Images stored on PACS. All CT scanners at this facility use dose modulation, iterative reconstruction, and/or weight based d osing when appropriate to reduce radiation dose to as low as reasonably achievable (ALARA). [facility]: Dose Right [facility]: CareDose [facility]: Dose Right [facility]: Teradose 4D [facility]: Emergent Labs RADIATION DOSE: CT Rad equipment meets quality standard of care and radiation dose reduction techniq ues were employed. CTDIvol: 48.6 mGy. DLP: 905 mGy-cm.mGy. LIMITATIONS: None. FINDINGS: VENTRICLES: Prominent. CEREBRUM: No masses. No hemorrhage. No midline shift. Areas of low density in the white matter mos t likely due to chronic micro-vascular ischemic change. No evidence for acute infarction. CEREBELLUM: No masses. No hemorrhage. No alteration of density. No evidence for acute infarction. EXTRAAXIAL SPACES: Age-related involutional change. No fluid collections. No masses. ORBITS AND GLOBE: No intra- or extraconal masses. Normal contour of globe without masses. CALVARIUM: No fracture. PARANASAL SINUSES: No fluid or mucosal thickening. SOFT TISSUES: No mass or hematoma. OTHER: No other significant finding. IMPRESSION: CHRONIC CHANGES OF ATROPHY AND MICROVASCULAR ISCHEMIA. NO ACUTE PROCESS. EVIDENCE OF ACUTE STROKE: NO. TECHNICAL DOCUMENTATION: JOB ID: [id number] Quality ID # [id number]: Final reports with documentation of one or more dose reduction techniques (e.g., Au tomated exposure control, adjustment of the mA and/or kV according to patient size, use of iterative reconstruction technique) 2010 [employer]- All Rights Reserved Reading location - IP/workstation name: [email or web address]
--- NOTE | 2019-11-06 13:56 | PDOC CONSULTATION ---
Consultation-Blank Consultation: Physical Medicine & Rehabilitation Progress Note Consultation requested received and appreciated. Chart reviewed. 84-year-old right-handed female admitted to [facility] on 11/03/2019 after presenting with left-sided weakness and being found to have an acute infarction in the right external capsule with mild microvascular ischemia on MRI of the brain. Further stroke workup demonstrated no hemodynamically significant stenosis on carotid Doppler and LV EF of 60-65%, mild diastolic dysfunction of the left ventricle, mild left atrial enlargement, sigmoid shaped interventricular septum, trace tricuspid regurgitation, and mild mitral regurgitation without evidence of left ventricular thrombus on echocardiogram. Laboratory studies demonstrated total cholesterol of 165, LDL of 92, triglycerides of 211, and hemoglobin A1c of 7.0%. She was started on aspirin 81 mg daily, Plavix 75 mg daily (21 days only, ending on 11/25/2019), and atorvastatin 80 mg daily at bedtime for secondary stroke prophylaxis. Further hospital course included diagnosis of hypercalcemia with workup suggestive of primary hyperparathyroidism and recommendation for outpatient follow-up with PCP and/or endocrinology. Her antihypertensive medications were also adjusted. The patient was evaluated by acute care physical therapy and occupational therapy, and she currently requires minimum assistance for bed mobility, minimum to moderate assistance for transfers, and minimum assistance for ambulation between her bed and recliner with a rolling walker as well as supervision for upper body dressing, maximum assistance for lower body dressing, dependent assistance for toileting, and moderate assistance for toilet transfers. The patient lives alone in a 1 level home with ramp to enter. Based on the patient's diagnosis, medical co-morbidities, and current functional status, she is a good candidate for acute inpatient rehabilitation as she would benefit from 3 hours per day of intensive therapies in at least 2 disciplines under the close medical supervision of a physician. The patient is expected to make significant functional gains in a relatively short period of time to the point that she can safely be discharged home with supervision and assistance from family. Barring any unforeseen events or complications, and pending medical readiness for discharge, there is a plan to admit the patient to [facility] acute inpatient rehabilitation on , 11/08/2019. [facility] will arrange transportation for this patient with a pick-up time of 10:00 AM on 11/08/2019. Please call [phone] for nursing sign out prior to patients discharge that morning.
--- NOTE | 2019-11-06 16:25 | PDOC PROGRESS REPORT ---
Subjective Progress Note for:: 11/06/19 Subjective:: Patient complained of headache today and also feels like she was having increased sluggishness of speech and increased weakness of left arm. Reason For Visit: ACUTE STROKE Physical Exam Vital Signs: Temp Pulse Resp BP Pulse Ox 98.1 F 63 20 132/62 H 98 11/06/19 15:10 11/06/19 15:10 11/06/19 15:10 11/06/19 15:10 11/06/19 15:10 Intake & Output 11/05/19 11/06/19 11/07/19 06:59 06:59 06:59 Intake Total 1218 510 240 Balance 1218 510 240 Weight 81.2 kg 82 kg General appearance: PRESENT: no acute distress, cooperative Respiratory exam: PRESENT: clear to auscultation odalis, symmetrical, unlabored. ABSENT: tachypnea, wheezes Cardiovascular exam: PRESENT: RRR, +S1, +S2. ABSENT: tachycardia GI/Abdominal exam: PRESENT: soft. ABSENT: rebound, rigid, tenderness Neurological exam: PRESENT: alert, awake, oriented to person, oriented to place, oriented to time, oriented to situation, motor sensory deficit - 4/5 strength in left upper and left lower extremity.. ABSENT: CN II-XII grossly intact - Mild dysarthria, mild sluggish speech, mild left facial deviation Results Laboratory Results: 11/04/19 07:50 11/04/19 07:50 11/03/19 08:00 Troponin I < 0.012 Impressions: Chest X-Ray 11/03/19 07:07 IMPRESSION: No evidence of acute intrathoracic disease. Head MRI 11/03/19 09:21 IMPRESSION: Acute infarction right external capsule. Mild microvascular ischemia. EVIDENCE OF ACUTE STROKE: YES. RIGHT MCA. Brain MRI with MRA 11/03/19 09:22 IMPRESSION: Acute infarction right external capsule. Mild microvascular ischemia. EVIDENCE OF ACUTE STROKE: YES. RIGHT MCA. Carotid Doppler Study 11/05/19 00:00 IMPRESSION: NO HEMODYNAMICALLY SIGNIFICANT STENOSIS. Modified Barium Swallow 11/05/19 00:01 IMPRESSION: LARYNGEAL PENETRATION, WITHOUT ASPIRATION, SEEN WITH THIN, NECTAR THICK AND HONEY THICK CONSISTENCIES. PLEASE SEE SPEECH PATHOLOGIST REPORT FOR OTHER FINDINGS AND RECOMMENDATIONS. Head CT 11/06/19 00:00 IMPRESSION: CHRONIC CHANGES OF ATROPHY AND MICROVASCULAR ISCHEMIA. NO ACUTE PROCESS. EVIDENCE OF ACUTE STROKE: NO. Assessment and Plan - Diagnosis (1) Acute ischemic stroke Is this a current diagnosis for this admission?: Yes Plan: MRI and MRA of the brain show acute ischemic stroke involving the right external capsule. Out of TPA window. Predominant symptoms currently include left facial deviation, left upper and lower extremity weakness, dysarthria and tongue deviation. Modified barium swallow study shows penetration with all liquids but no aspiration below the level of the vocal cords. Speech pathologist recommends soft diet with thin liquids with small sips Continue physical and occupational therapy. discharge planner/licensed social worker involved. Seems to have improved with PT. Telemetry reviewed and no evidence of A. fib. Continue aspirin daily, Plavix [21-day duration] and atorvastatin Echocardiogram and carotid Dopplers are unremarkable Got a repeat head CT today due to patient's complaints but CT head shows no evidence of any hemorrhagic conversion. Patient's physical exam does not see drastically different from before with mild sluggishness in his speech and dysarthria only mildly worse than yesterday. I do not believe she had any new events and I think this is all stable from a old CVA. Dr. Jeff Schmidt consulted for acute rehab. Plan for transfer to [facility] rehab on . (2) Diabetes mellitus type 2 in obese Is this a current diagnosis for this admission?: Yes Plan: Patient states that her diabetes is diet controlled. Hemoglobin A1c is actually 7 showing very good control of her diabetes even in the absence of pharmacotherapy. Diabetic diet. (3) Hypercalcemia Is this a current diagnosis for this admission?: Yes Plan: Seems to have been hypercalcemic mildly several times in the past as well. Hypercalcemic on admission but resolved now. PTH is elevated and her vitamin D 25 is appropriately low normal suggestive of primary hyperparathyroidism as etiology. Outpatient follow-up with PCP and/or salt operator. (4) Hypertension Qualifiers: Hypertension type: essential hypertension Qualified Code(s): I10 - Essential (primary) hypertension Is this a current diagnosis for this admission?: Yes Plan: I have discontinued her Lopressor due to bradycardia. Continue hydrochlorothiazide. Amlodipine added. (5) Hypothyroid Qualifiers: Hypothyroidism type: unspecified Qualified Code(s): E03.9 - Hypothyroidism, unspecified Is this a current diagnosis for this admission?: Yes Plan: synthroid - Time Anticipated Discharge Disposition: Tertiary Anticipated Discharge: when bed available
[2019-11-06] MEDS: ATORVASTATIN CALCIUM 80 MG TABLET PO SCH (23:22)
[2019-11-07] MEDS: INSULIN LISPRO 100 UNIT/ML 3 ML VIAL SUBCUT SCH ×4 (01:15→18:14)
[2019-11-07] MEDS: LEVOTHYROXINE SODIUM 0.15 MG TABLET PO SCH (06:08)
[2019-11-07] MEDS: PANTOPRAZOLE SODIUM 20 MG TABLET.DR PO SCH (06:09)
[2019-11-07] MEDS: ENOXAPARIN SODIUM INJ 40 MG/0.4 ML DISP.SYRIN SUBCUT SCH (09:27)
[2019-11-07] MEDS: ASPIRIN 81 MG TABLET, ENT COATED PO SCH (09:31)
[2019-11-07] MEDS: HYDROCHLOROTHIAZIDE 25 MG TABLET PO SCH (09:31)
[2019-11-07] MEDS: CLOPIDOGREL BISULFATE 75 MG TABLET PO SCH (09:31)
[2019-11-07] MEDS: MULTIVITAMIN TABLET PO SCH (09:31)
[2019-11-07] MEDS: AMLODIPINE BESYLATE 5 MG TABLET PO SCH (09:32)
--- NOTE | 2019-11-07 12:54 | PDOC PROGRESS REPORT ---
Subjective Progress Note for:: 11/07/19 Subjective:: Patient is doing okay today. She just complains of knee pain in her left knee. She denies any swelling in the region. May be partly positional. Her speech is improved mildly compared to yesterday. Left arm weakness a little bit better but close to the same. She request for the IV to be removed as it is causing pain to her right arm. Reason For Visit: ACUTE STROKE Physical Exam Vital Signs: Temp Pulse Resp BP Pulse Ox 97.8 F 59 L 18 138/66 H 98 11/07/19 07:31 11/07/19 07:31 11/07/19 07:31 11/07/19 07:31 11/07/19 07:31 Intake & Output 11/06/19 11/07/19 11/08/19 06:59 06:59 06:59 Intake Total 510 1240 462 Balance 510 1240 462 Weight 82 kg 84.2 kg General appearance: PRESENT: no acute distress, cooperative Neck exam: ABSENT: JVD Respiratory exam: PRESENT: clear to auscultation odalis, unlabored Cardiovascular exam: PRESENT: +S1, +S2. ABSENT: tachycardia GI/Abdominal exam: PRESENT: soft. ABSENT: tenderness Neurological exam: PRESENT: alert, awake, oriented to person, oriented to place, oriented to time, motor sensory deficit - Left arm weakness improved from yesterday but still quite significant. 4/5 in left upper and left lower extremities. Left lower extremity is closer to 3/5 but still has some resistance against gravity.. ABSENT: CN II-XII grossly intact - Dysarthric Results Laboratory Results: 11/04/19 07:50 11/04/19 07:50 11/03/19 08:00 Troponin I < 0.012 Impressions: Chest X-Ray 11/03/19 07:07 IMPRESSION: No evidence of acute intrathoracic disease. Head MRI 11/03/19 09:21 IMPRESSION: Acute infarction right external capsule. Mild microvascular ischemia. EVIDENCE OF ACUTE STROKE: YES. RIGHT MCA. Brain MRI with MRA 11/03/19 09:22 IMPRESSION: Acute infarction right external capsule. Mild microvascular ischemia. EVIDENCE OF ACUTE STROKE: YES. RIGHT MCA. Carotid Doppler Study 11/05/19 00:00 IMPRESSION: NO HEMODYNAMICALLY SIGNIFICANT STENOSIS. Modified Barium Swallow 11/05/19 00:01 IMPRESSION: LARYNGEAL PENETRATION, WITHOUT ASPIRATION, SEEN WITH THIN, NECTAR THICK AND HONEY THICK CONSISTENCIES. PLEASE SEE SPEECH PATHOLOGIST REPORT FOR OTHER FINDINGS AND RECOMMENDATIONS. Head CT 11/06/19 00:00 IMPRESSION: CHRONIC CHANGES OF ATROPHY AND MICROVASCULAR ISCHEMIA. NO ACUTE PROCESS. EVIDENCE OF ACUTE STROKE: NO. Assessment and Plan - Diagnosis (1) Acute ischemic stroke Is this a current diagnosis for this admission?: Yes Plan: MRI and MRA of the brain show acute ischemic stroke involving the right external capsule. Out of TPA window. Predominant symptoms currently include left facial deviation, left upper and lower extremity weakness, dysarthria and tongue deviation. Modified barium swallow study shows penetration with all liquids but no aspiration below the level of the vocal cords. Speech pathologist recommends soft diet with thin liquids with small sips Continue physical and occupational therapy. network planner/social worker delinquency prevention involved. Seems to have improved with PT. Telemetry reviewed and no evidence of A. fib. Continue aspirin daily, Plavix [21-day duration] and atorvastatin Echocardiogram and carotid Dopplers are unremarkable Repeat head CT 11/06/2019 to evaluate significant headache no evidence of any hemorrhagic conversion. Dr. Jeff Schmidt consulted for acute rehab. Plan for transfer to [facility] rehab on . (2) Diabetes mellitus type 2 in obese Is this a current diagnosis for this admission?: Yes Plan: Patient states that her diabetes is diet controlled. Hemoglobin A1c is actually 7 showing very good control of her diabetes even in the absence of pharmacotherapy. Diabetic diet. (3) Hypercalcemia Is this a current diagnosis for this admission?: Yes Plan: Seems to have been hypercalcemic mildly several times in the past as well. Hypercalcemic on admission but resolved now. PTH is elevated and her vitamin D 25 is appropriately low normal suggestive of primary hyperparathyroidism as etiology. Outpatient follow-up with PCP and/or customer experience analyst. (4) Hypertension Qualifiers: Hypertension type: essential hypertension Qualified Code(s): I10 - Essential (primary) hypertension Is this a current diagnosis for this admission?: Yes Plan: I have discontinued her Lopressor due to bradycardia. Continue hydrochlorothiazide. Amlodipine added. (5) Hypothyroid Qualifiers: Hypothyroidism type: unspecified Qualified Code(s): E03.9 - Hypothyroidism, unspecified Is this a current diagnosis for this admission?: Yes Plan: synthroid - Time Time Spent with patient: Less than 15 minutes Anticipated Discharge Disposition: Tertiary Anticipated Discharge Timeframe: within 24 hours
[2019-11-07] MEDS: ATORVASTATIN CALCIUM 80 MG TABLET PO SCH (23:39)
[2019-11-08] MEDS: INSULIN LISPRO 100 UNIT/ML 3 ML VIAL SUBCUT SCH ×2 (01:20→06:33)
[2019-11-08] MEDS: LEVOTHYROXINE SODIUM 0.15 MG TABLET PO SCH (06:33)
[2019-11-08] MEDS: PANTOPRAZOLE SODIUM 20 MG TABLET.DR PO SCH (06:33)
[2019-11-08 07:57] VITALS: BP 119/63
--- NOTE | 2019-11-08 10:17 | PDOC TRANSFER SUMMARY ---
General Admission Date/PCP: 11/03/19 12:21 JEANETTE MARTINEZ MD Admission Date: 11/03/19 Transfer Date: 11/08/19 Accepting Facility: [facility] Accepting Physician: Lonnie Schmidt (Acute inpatient rehab) Resuscitation Status: Do Not Resuscitate - DNR/DNI. Confirmed with patient - Transfer Diagnosis (1) Acute ischemic stroke Is this a current diagnosis for this admission?: Yes (2) Diabetes mellitus type 2 in obese Is this a current diagnosis for this admission?: Yes (3) Hypercalcemia Is this a current diagnosis for this admission?: Yes (4) Hypertension Is this a current diagnosis for this admission?: Yes (5) Hypothyroid Is this a current diagnosis for this admission?: Yes - Transfer Medications Home Medications: Levothyroxine Sodium [Synthroid] 150 mcg PO QAM 02/15/17 Metoprolol Tartrate [Lopressor 25 mg Tablet] 50 mg PO Q12 02/15/17 Multivitamin [Multiple Vitamins] 1 tab PO DAILY 02/15/17 Omeprazole 40 mg PO BID 02/15/17 Hydrochlorothiazide [Hydrodiuril 25 mg Tablet] 25 mg PO QAM 06/06/19 Transfer Medications: Current Medications Acetaminophen (Tylenol 325 Mg Tablet) 975 mg PO Q4HP PRN PRN Reason: FOR PAIN Stop: 12/03/19 13:28 Last Admin: 11/08/19 02:45 Dose: 975 mg Documented by: Amlodipine Besylate (Norvasc 5 Mg Tablet) 5 mg PO DAILY JAE Stop: 12/06/19 09:59 Last Admin: 11/07/19 09:32 Dose: 5 mg Documented by: Aspirin (Ecotrin 81 Mg Ec Tablet) 81 mg PO DAILY JAE Stop: 12/05/19 09:59 Last Admin: 11/07/19 09:31 Dose: 81 mg Documented by: Atorvastatin Calcium (Lipitor 80 Mg Tablet) 80 mg PO QHS JAE Stop: 12/03/19 21:59 Last Admin: 11/07/19 23:39 Dose: 80 mg Documented by: Clopidogrel Bisulfate (Plavix 75 Mg Tablet) 75 mg PO DAILY JAE Stop: 12/04/19 09:59 Last Admin: 11/07/19 09:31 Dose: 75 mg Documented by: Dextrose (Dextrose Inj 50% Syringe (25 Gm/50 Ml)) 12.5 gm IV PRN PRN; Protocol PRN Reason: FOR BG 50-69 IN ALERT PATIENT Stop: 12/03/19 13:16 Dextrose (Dextrose Inj 50% Syringe (25 Gm/50 Ml)) 25 gm IV PRN PRN; Protocol PRN Reason: See Label Comments Stop: 12/03/19 13:16 Enoxaparin Sodium (Lovenox Inj 40 Mg/0.4 Ml Disp.Syrin) 40 mg SUBCUT DAILY [facility] Stop: 12/04/19 09:59 Last Admin: 11/07/19 09:27 Dose: Not Given Documented by: Glucagon (Glucagen Inj 1 Mg Vial) 1 mg SUBCUT PRN PRN; Protocol PRN Reason: Evaluate for BG < 70 Stop: 12/03/19 13:16 Glucose (Glutose 40% Gel 15 Gm Tube) 15 gm PO PRN PRN; Protocol PRN Reason: For BG 50-69 in Alert Patient Stop: 12/03/19 13:16 Glucose (Glutose 40% Gel 15 Gm Tube) 30 gm PO PRN PRN; Protocol PRN Reason: FOR BG < 50 IN ALERT PATIENT Stop: 12/03/19 13:16 Hydrochlorothiazide (Hydrodiuril 25 Mg Tablet) 25 mg PO QAM [facility] Stop: 12/04/19 18:59 Last Admin: 11/07/19 09:31 Dose: 25 mg Documented by: Insulin Human Lispro (Humalog Insulin 100 Unit/1 Ml 3 Ml Vial) 0 - 12 unit SUBCUT Q6 [facility]; Protocol Stop: 12/03/19 17:59 Last Admin: 11/08/19 06:33 Dose: Not Given Documented by: Levothyroxine Sodium (Synthroid 0.15 Mg Tablet) 0.15 mg PO Q6AM [facility] Stop: 12/03/19 14:29 Last Admin: 11/08/19 06:33 Dose: 0.15 mg Documented by: Multivitamins (Tab-A-Chante (Multiple Vitamin) Tablet) 1 tab PO DAILY [facility] Stop: 12/05/19 09:59 Last Admin: 11/07/19 09:31 Dose: 1 tab Documented by: Pantoprazole Sodium (Protonix [address] Tablet) 40 mg PO Q6AM [facility] Stop: 12/05/19 05:59 Last Admin: 11/08/19 06:33 Dose: 40 mg Documented by: - Allergies Allergies/Adverse Reactions: adhesive tape [Adhesive Tape] Allergy (Intermediate, Verified 11/03/19 12:14) SILVA SKIN meperidine HCl [From Demerol] Allergy (Intermediate, Verified 11/03/19 12:14) VOMITING meperidine [From Demerol] Allergy (Verified 11/03/19 12:14) mesalamine [From Apriso] Allergy (Verified 11/03/19 12:14) Penicillins Allergy (Verified 11/03/19 12:14) ramipril Allergy (Verified 11/03/19 12:14) topiramate [From Topamax] Allergy (Verified 11/03/19 12:14) valsartan [From Diovan] Allergy (Verified 11/03/19 12:14) Hospital Course Hospital Course: Admission History of Present Illness: PRIYA CANTRELL is a 84 year old female with a history of diabetes mellitus type 2, hypertension, arthritis, Crohn's disease, Santamaria's esophagus, who presents to the hospital with complaints of left-sided weakness involving her left arm and left leg. Patient's last known normal was last night. She woke up with this symptoms today. She complains of having experiencing dizziness and some disequilibrium for the past few days and went to see her primary care provider Tuesday. This morning, she began to have significant pressure headache in her parietal region and noticed that she could barely move her left arm and her left leg. She also notes slurred speech. She denies any lightheadedness or paresthesias. Denies any trouble with word finding. Denies fevers or chills. Denies history of prior strokes. Hospital Course (1) Acute ischemic stroke Is this a current diagnosis for this admission?: Yes Plan: MRI and MRA of the brain show acute ischemic stroke involving the right external capsule. Out of TPA window. Predominant symptoms currently include left facial deviation, left upper and lower extremity weakness, dysarthria and tongue deviation. Modified barium swallow study shows penetration with all liquids but no aspiration below the level of the vocal cords. Speech pathologist recommends soft diet with thin liquids with small sips Continue physical and occupational therapy. Telemetry reviewed and no evidence of A. fib. Continue aspirin daily, Plavix [21-day duration] and atorvastatin Echocardiogram and carotid Dopplers are unremarkable Repeat head CT 11/06/2019 to evaluate significant headache no evidence of any hemorrhagic conversion. Dr. Jeff Schmidt consulted for acute rehab. Plan [facility] transfer to [facility] on . (2) Diabetes mellitus type 2 in obese Is this a current diagnosis for this admission?: Yes Plan: Patient states that her diabetes is diet controlled. Hemoglobin A1c is actually 7 showing very good control of her diabetes even in the absence of pharmacotherapy. Diabetic diet. (3) Hypercalcemia Is this a current diagnosis for this admission?: Yes Plan: Seems to have been hypercalcemic mildly several times in the past as well. Hyp ercalcemic on admission but resolved now. PTH is elevated and her vitamin D 25 is appropriately low normal suggestive of primary hyperparathyroidism as etiology. Outpatient follow-up with PCP and/or tractor mechanic apprentice. (4) Hypertension Qualifiers: Hypertension type: essential hypertension Qualified Code(s): I10 - Essential (primary) hypertension Is this a current diagnosis for this admission?: Yes Plan: I have discontinued her Lopressor due to bradycardia. Continue h ydrochlorothiazide. Amlodipine added. (5) Hypothyroid Qualifiers: Hypothyroidism type: unspecified Qualified Code(s): E03.9 - Hypothyroidism, unspecified Is this a current diagnosis for this admission?: Yes Plan: synthroid Physical Exam Vital Signs: Temp Pulse Resp BP Pulse Ox 97.3 F 64 19 119/63 96 11/08/19 07:48 11/08/19 07:48 11/08/19 07:48 11/08/19 07:48 11/08/19 07:48 Intake & Output 11/07/19 11/08/19 11/09/19 06:59 06:59 06:59 Intake Total 1240 1394 Output Total 425 Balance 1240 969 Weight 84.2 kg 81.6 kg General appearance: PRESENT: no acute distress, cooperative Respiratory exam: PRESENT: clear to auscultation odalis, unlabored Cardiovascular exam: PRESENT: RRR, +S1, +S2. ABSENT: tachycardia GI/Abdominal exam: PRESENT: soft. ABSENT: rebound, rigid, tenderness Extremities exam: PRESENT: other - left nontender without erythema,swelling or effusion Neurological exam: PRESENT: alert, awake, oriented to person, oriented to place, oriented to time, oriented to situation, motor sensory deficit - 4/5 in LUE and LLE, 5/5 in Right side. ABSENT: ataxia, CN II-XII grossly intact - mild dysarth michael, mild left facial droop, aphasic Psychiatric exam: ABSENT: agitated, anxious Results Laboratory Results: 11/04/19 07:50 11/04/19 07:50 11/03/19 08:00 Troponin I < 0.012 Impressions: Chest X-Ray 11/03/19 07:07 IMPRESSION: No evidence of acute intrathoracic disease. Head MRI 11/03/19 09:21 IMPRESSION: Acute infarction right external capsule. Mild microvascular ischemia. EVIDENCE OF ACUTE STROKE: YES. RIGHT MCA. Brain MRI with MRA 11/03/19 09:22 IMPRESSION: Acute infarction right external capsule. Mild microvascular ischemia. EVIDENCE OF ACUTE STROKE: YES. RIGHT MCA. Carotid Doppler Study 11/05/19 00:00 IMPRESSION: NO HEMODYNAMICALLY SIGNIFICANT STENOSIS. Modified Barium Swallow 11/05/19 00:01 IMPRESSION: LARYNGEAL PENETRATION, WITHOUT ASPIRATION, SEEN WITH THIN, NECTAR THICK AND HONEY THICK CONSISTENCIES. PLEASE SEE SPEECH PATHOLOGIST REPORT FOR OTHER FINDINGS AND RECOMMENDATIONS. Head CT 11/06/19 00:00 IMPRESSION: CHRONIC CHANGES OF ATROPHY AND MICROVASCULAR ISCHEMIA. NO ACUTE PROCESS. EVIDENCE OF ACUTE STROKE: NO. Plan Time Spent: Less than 30 Minutes
== END 2019-11-08 10:36 | disposition short-term general hospital (02) | DRG 65 ==
LOC: ER 06:27 → EH 12:21 → 5 15:53
PROVIDERS: ADMIT Internal Medicine; ATTEND Internal Medicine
DX: I63.511 Cerebral infarction due to unspecified occlusion or stenosis of right middle cerebral artery (principal); G81.94 Hemiplegia, unspecified affecting left nondominant side; K50.90 Crohn's disease, unspecified, without complications; R29.703 NIHSS score 3; E11.9 Type 2 diabetes mellitus without complications; M19.90 Unspecified osteoarthritis, unspecified site; K22.70 Barrett's esophagus without dysplasia; E78.5 Hyperlipidemia, unspecified; I10 Essential (primary) hypertension; E03.9 Hypothyroidism, unspecified; R47.01 Aphasia; R47.1 Dysarthria and anarthria; F32.9 Major depressive disorder, single episode, unspecified; Z90.49 Acquired absence of other specified parts of digestive tract; Z66 Do not resuscitate; Z88.0 Allergy status to penicillin; Z88.8 Allergy status to other drugs, medicaments and biological substances; Z82.49 Family history of ischemic heart disease and other diseases of the circulatory system; Z83.3 Family history of diabetes mellitus; E83.52 Hypercalcemia; Z79.890 Hormone replacement therapy; Z79.899 Other long term (current) drug therapy; E21.0 Primary hyperparathyroidism; Z03.818 Encounter for observation for suspected exposure to other biological agents ruled out
CPT/HCPCS: 36415; 70450; 70544; 70551; 71045; 74230; 80048; 80053; 80061; 81001; 82306; 82397; 82652; 82962; 83036; 83970; 84484; 85025; 85027; 85610; 85730; 87635; 93005; 93010; 93306; 93880; 96360; 96361; 99291; C9113; C9803; J1650; J1815; J3490; J7030; J7050